=== PATIENT | female | born 1965 | race American Indian/Alaskan Native ===

== ENCOUNTER 2018-04-16 10:31 | Emergency (ER) | payer OTHER ==
[2018-04-16 10:36] VITALS: RESP 18
[2018-04-16] MEDS ORDERED: KETOROLAC 30 MG/ML 1 ML VIAL IVP STA (11:09)
[2018-04-16] MEDS ORDERED: MORPHINE SULFATE 2 MG/ML SYRINGE IVP STA (11:09)
[2018-04-16] MEDS ORDERED: SODIUM CHLORIDE 0.9% 1,000 ML IV STA ×2 (11:09)
[2018-04-16] MEDS ORDERED: ONDANSETRON 4 MG/2 ML VIAL IVP STA (11:09)
--- NOTE | 2018-04-16 11:09 | ED ---
Abdominal Pain HPI - General Chief Complaint: Abdominal Pain Stated Complaint: hernia Time Seen by Provider: 04/16/18 10:38 Source: patient, RN notes reviewed, old records reviewed Mode of arrival: wheelchair Limitations: no limitations - History of Present Illness Initial Comments: This patient's 52-year-old female presents emergency room chief complaint of umbilical hernia pain. Patient reports that she has a history of liver disease , and states that she has had increased pain due to the protrusion of her hernia over the past few weeks. Patient states she noticed that hernia is more severe since August. She try to follow-up with her primary care physician but he has since retired. Patient states that she has been having normal bowel movements. She reports there is pain whenever she coughs nieces or strains have a bowel movement. Patient states that she's had no fevers or chills. Denies any other symptoms. - Related Data Home Medications Medication Instructions Recorded Confirmed Ergocalciferol [Vitamin D2] 50,000 unit PO TH 04/16/18 04/16/18 Folic Acid 1 mg PO DAILY 04/16/18 04/16/18 Furosemide [Lasix] 80 mg PO DAILY 04/16/18 04/16/18 Magnesium Oxide [Joyce] 500 mg PO WEEKLY 04/16/18 04/16/18 Polyethylene Glycol 3350 [Miralax] 17 gm PO DAILY 04/16/18 04/16/18 Potassium Chloride [Klor-Con 20] 20 meq PO DAILY 04/16/18 04/16/18 Propranolol HCl 10 mg PO TID 04/16/18 04/16/18 Spironolactone [Aldactone] 200 mg PO DAILY 04/16/18 04/16/18 Previous Rx's Medication Instructions Recorded Bisacodyl [Dulcolax] 10 mg PO DAILY #12 tablet. 04/16/18 Allergies Allergy/AdvReac Type Severity Reaction Status Date / Time No Known Allergies Allergy Verified 04/16/18 10:55 Review of Systems ROS Statement: Those systems with pertinent positive or pertinent negative responses have been documented in the HPI. ROS Other: All systems not noted in ROS Statement are negative. Past Medical History Past Medical History: Heart Failure Additional Past Medical History / Comment(s): anemia, constipation, liver disease, alcholism History of Any Multi-Drug Resistant Organisms: None Reported Past Surgical History: No Surgical Hx Reported Past Psychological History: No Psychological Hx Reported Smoking Status: Current every day smoker Past Alcohol Use History: Rare Past Drug Use History: Marijuana General Exam - General Exam Comments Initial Comments: This is a 52-year-old female. Alert and oriented. No significant distress. Limitations: no limitations Head exam: Present: atraumatic, normocephalic, normal inspection Eye exam: Present: normal appearance, PERRL, EOMI. Absent: scleral icterus, conjunctival injection, periorbital swelling ENT exam: Present: normal exam, mucous membranes moist Neck exam: Present: normal inspection. Absent: tenderness, meningismus, lymphadenopathy Respiratory exam: Present: normal lung sounds bilaterally. Absent: respiratory distress, wheezes, rales, rhonchi, stridor Cardiovascular Exam: Present: regular rate, normal rhythm, normal heart sounds. Absent: systolic murmur, diastolic murmur, rubs, gallop, clicks GI/Abdominal exam: Present: soft, tenderness (Patient reports diffuse abdominal tenderness.), normal bowel sounds, hernia (Evidence of umbilical hernia measuring approximately 6-7 cm. She was has no erythema over the umbilicus. Bowel sounds are normal throughout. Hernia is reducible on slow palpation.). Absent: distended, guarding, rebound, rigid Extremities exam: Present: normal inspection, full ROM, normal capillary refill. Absent: tenderness, pedal edema, joint swelling, calf tenderness Back exam: Present: normal inspection Neurological exam: Present: alert, oriented X3, CN II-XII intact Psychiatric exam: Present: normal affect, normal mood Skin exam: Present: warm, dry, intact, normal color. Absent: rash Course Vital Signs 04/16/18 04/16/18 10:33 11:59 Temperature 98.4 F Pulse Rate 112 H 87 Respiratory 18 18 Rate Blood Pressure 167/73 184/85 O2 Sat by Pulse 100 98 Oximetry Medical Decision Making - Medical Decision Making Due to-year-old female just emergency department intubated pain of her umbilical hernia. She's been having this hernia for many months. Pain has been increased over the past 2 weeks. Patient reports that she is concerned have bowel movements or any other coughing or exertional symptoms due to increased pain hernia site. Patient states she's had bowel movement today. Lab work was obtained. Patient does have evidence of Anemia with blood cell count 2.7. Hemoglobin 10.5. Liver function is been stable. Kidney function shows no significant change. PT 12.1. INR 1.3. Patient does have history of cirrhosis. CT abdomen and pelvis was completed. No evidence of any incarcerated bowel or ischemia so she with patient's hernia. Also some evidence of portal hypertension and small amount of ascites within the abdomen. Patient has been informed of her results. I discussed that she needs follow- up with PCP and surgeon for her hernia. Be given a referral for the on-call surgeon on-call PCP. Patient agrees to follow-up, nausea history plan will comply. Return parameters were discussed. - Lab Data Result diagrams: 04/16/18 11:41 04/16/18 11:41 Lab Results 04/16/18 04/16/18 04/16/18 Range/Units 11:41 11:41 11:41 WBC 2.7 L (3.8-10.6) k/uL RBC 4.36 (3.80-5.40) m/uL Hgb 10.5 L (11.4-16.0) gm/dL Hct 35.1 (34.0-46.0) % MCV 80.5 (80.0-100.0) fL MCH 24.1 L (25.0-35.0) pg MCHC 29.9 L (31.0-37.0) g/dL RDW 18.2 H (11.5-15.5) % Plt Count 124 L (150-450) k/uL Neutrophils % 58 % Lymphocytes % 30 % Monocytes % 8 % Eosinophils % 2 % Basophils % 1 % Neutrophils # 1.6 (1.3-7.7) k/uL Lymphocytes # 0.8 L (1.0-4.8) k/uL Monocytes # 0.2 (0-1.0) k/uL Eosinophils # 0.0 (0-0.7) k/uL Basophils # 0.0 (0-0.2) k/uL Hypochromasia Marked Anisocytosis Slight Microcytosis Slight PT 12.1 H (9.0-12.0) sec INR 1.3 H (<1.2) APTT 22.2 (22.0-30.0) sec Sodium 139 (137-145) mmol/L Potassium 3.8 (3.5-5.1) mmol/L Chloride 105 (98-107) mmol/L Carbon Dioxide 24 (22-30) mmol/L Anion Gap 10 mmol/L BUN 6 L (7-17) mg/dL Creatinine 0.39 L (0.52-1.04) mg/dL Est GFR (CKD-EPI)AfAm >90 (>60 ml/min/1.73 sqM) Est GFR (CKD-EPI)NonAf >90 (>60 ml/min/1.73 sqM) Glucose 142 H (74-99) mg/dL Calcium 8.6 (8.4-10.2) mg/dL Total Bilirubin 1.0 (0.2-1.3) mg/dL AST 69 H (14-36) U/L ALT 35 (9-52) U/L Alkaline Phosphatase 96 (38-126) U/L Total Protein 7.6 (6.3-8.2) g/dL Albumin 3.8 (3.5-5.0) g/dL Amylase 80 (30-110) U/L Lipase 182 (23-300) U/L Urine Color Urine Appearance (Clear) Urine pH (5.0-8.0) Ur Specific [place] (1.001-1.035) Urine Protein (Negative) Urine Glucose (UA) (Negative) Urine Ketones (Negative) Urine Blood (Negative) Urine Nitrite (Negative) Urine Bilirubin (Negative) Urine Urobilinogen (<2.0) mg/dL Ur Leukocyte Esterase (Negative) 04/16/18 Range/Units 13:30 WBC (3.8-10.6) k/uL RBC (3.80-5.40) m/uL Hgb (11.4-16.0) gm/dL Hct (34.0-46.0) % MCV (80.0-100.0) fL MCH (25.0-35.0) pg MCHC (31.0-37.0) g/dL RDW (11.5-15.5) % Plt Count (150-450) k/uL Neutrophils % % Lymphocytes % % Monocytes % % Eosinophils % % Basophils % % Neutrophils # (1.3-7.7) k/uL Lymphocytes # (1.0-4.8) k/uL Monocytes # (0-1.0) k/uL Eosinophils # (0-0.7) k/uL Basophils # (0-0.2) k/uL Hypochromasia Anisocytosis Microcytosis PT (9.0-12.0) sec INR (<1.2) APTT (22.0-30.0) sec Sodium (137-145) mmol/L Potassium (3.5-5.1) mmol/L Chloride (98-107) mmol/L Carbon Dioxide (22-30) mmol/L Anion Gap mmol/L BUN (7-17) mg/dL Creatinine (0.52-1.04) mg/dL Est GFR (CKD-EPI)AfAm (>60 ml/min/1.73 sqM) Est GFR (CKD-EPI)NonAf (>60 ml/min/1.73 sqM) Glucose (74-99) mg/dL Calcium (8.4-10.2) mg/dL Total Bilirubin (0.2-1.3) mg/dL AST (14-36) U/L ALT (9-52) U/L Alkaline Phosphatase (38-126) U/L Total Protein (6.3-8.2) g/dL Albumin (3.5-5.0) g/dL Amylase (30-110) U/L Lipase (23-300) U/L Urine Color Yellow Urine Appearance Clear (Clear) Urine pH 7.5 (5.0-8.0) Ur Specific [place] 1.021 (1.001-1.035) Urine Protein Negative (Negative) Urine Glucose (UA) Negative (Negative) Urine Ketones Negative (Negative) Urine Blood Negative (Negative) Urine Nitrite Negative (Negative) Urine Bilirubin Negative (Negative) Urine Urobilinogen 2.0 (<2.0) mg/dL Ur Leukocyte Esterase Negative (Negative) - Radiology Data Radiology results: report reviewed Midcentral ventral hernia near bleeding is contained small sip small bowel movement. No suspicious dilation to suggest obstruction or fat stranding to suggest ischemia or incarceration. There is suspected cirrhosis with underlying portal hypertension. There is mild splenomegaly with small amount of abdominal and pelvic ascites. Clinical correlation is advised. Disposition Clinical Impression: Ventral hernia, Abdominal pain, Anemia Disposition: HOME SELF-CARE Condition: Good Instructions: Abdominal Pain (ED), Ventral Hernia (ED) Additional Instructions: Patient advised to follow-up with primary care physician and on-call surgeon. Return to emergency department if any alarming signs or symptoms occur. Prescriptions: Bisacodyl [Dulcolax] 10 mg PO DAILY #12 tablet.dr Is patient prescribed a controlled substance at d/c from ED?: No Referrals: None,Stated [Primary Care Provider] - 1-2 days Juan A Maxwell MD [STAFF PHYSICIAN] - 1-2 days Mitra Umaña MD [STAFF PHYSICIAN] - 1-2 days Time of Disposition: 14:18
[2018-04-16 12:04] LABS: Anisocytosis Slight; Basophils % (A) 1 %; Eosinophils % (A) 2 %; HCT 35.1 % (34.0-46.0); HGB 10.5 gm/dL (11.4-16.0); Hypochromasia Marked; Lymphocytes # (A) 0.8 k/uL (1.0-4.8); Lymphocytes % (A) 30 %; MCH 24.1 pg (25.0-35.0); MCHC 29.9 g/dL (31.0-37.0); MCV 80.5 fL (80.0-100.0); Microcytosis Slight; Monocytes # (A) 0.2 k/uL (0-1.0); Monocytes % (A) 8 %; Neutrophils # (A) 1.6 k/uL (1.3-7.7); Neutrophils % (A) 58 %; Platelet Count 124 k/uL (150-450); RBC 4.36 m/uL (3.80-5.40); RDW 18.2 % (11.5-15.5); WBC 2.7 k/uL (3.8-10.6)
[2018-04-16 12:06] LABS: ALT 35 U/L (9-52); AST 69 U/L (14-36); Albumin 3.8 g/dL (3.5-5.0); Alkaline Phosphatase 96 U/L (38-126); Amylase 80 U/L (30-110); Anion Gap 10 mmol/L; Blood Urea Nitrogen 6 mg/dL (7-17); Calcium 8.6 mg/dL (8.4-10.2); Carbon Dioxide 24 mmol/L (22-30); Chloride 105 mmol/L (98-107); Glucose 142 mg/dL (74-99); Lipase 182 U/L (23-300); Potassium 3.8 mmol/L (3.5-5.1); Sodium 139 mmol/L (137-145); Total Protein 7.6 g/dL (6.3-8.2)
[2018-04-16 12:17] LABS: INR 1.3 (<1.2); Partial Thromboplastin Time 22.2 sec (22.0-30.0); Prothrombin Time 12.1 sec (9.0-12.0)
[2018-04-16 13:50] LABS: Appearance,Urine Clear (Clear); Bilirubin,Urine Negative (Negative); Blood,Urine Negative (Negative); Color,Urine Yellow; Glucose,Urine (UA) Negative (Negative); Ketones,Urine Negative (Negative); Leukocyte Esterase,Urine Negative (Negative); Nitrite,Urine Negative (Negative); PH, Urine 7.5 (5.0-8.0); Protein,Urine Negative (Negative); Specific Gravity,Urine 1.021 (1.001-1.035)
--- NOTE | 2018-04-16 14:11 | CT ---
EXAMINATION TYPE: CT abdomen pelvis w con DATE OF EXAM: 04/16/2018 HISTORY: Umbilical hernia feels like going to burst per patient. Pain not further specified CT DLP: 692.1mGycm Automated Exposure Control for Dose Reduction was Utilized. CONTRAST: CT scan of the abdomen and pelvis is performed without oral but with IV Contrast, patient injected wi th 100 mL of Isovue 300. COMPARISON: None FINDINGS: LUNG BASES: Dependent atelectasis right lung base is present. There is reticular edema and/or infiltr ates in the left lower lobe axial image 11 with more nodular atelectasis subpleural region in the lef t lung base. Coronary artery calcification is present which is noted marker for coronary artery disea se. LIVER/GB: There is small to moderate perihepatic ascites anterior superior margin extending laterally . Liver has lobulated contour consistent with underlying cirrhosis. Main portal vein is patent and up per limits of normal in size PANCREAS: No significant abnormality is seen. SPLEEN: Mild splenomegaly is seen at 14.0 cm long axis axial image 29. Mild surrounding ascites is pr esent. ADRENALS: No significant abnormality is seen. KIDNEYS: No significant abnormality is seen. BOWEL: Evaluation of bowel is suboptimal secondary to lack of enteric contrast. Stomach is poorly dis tended and thus suboptimally evaluated. There is mild wall thickening in jejunal loops in the left ab domen. There is no suspicious small or large bowel dilatation. Redundant sigmoid colon is seen with o ccasional diverticula. UTERUS/ADNEXA: Anteverted uterus is seen. There is small amount of free fluid in pelvis LYMPH NODES: No greater than 1cm abdominal or pelvic lymph nodes are appreciated. OSSEOUS STRUCTURES: There is mild to moderate chronic height loss at L2 vertebra with prominent anter ior superior spur. OTHER: There is narrow neck ventral wall hernia measuring 2.2 cm axial image 59 near level of umbilic us containing fat, tiny mesenteric vessels, and focal loop of bowel felt to be small bowel loop. No s uspicious dilatation is seen to suggest obstruction. There is mild ill-defined fluid throughout the upper to mid abdominal mesentery. There is moderate to severe calcified plaque throughout the abdominal aorta extending into pelvic bra nch vessels. IMPRESSION: 1. Midline central ventral wall hernia near umbilicus contains small segment of small bowel loop. No suspicious dilatation to suggest obstruction or significant focal fat stranding to suggest ischemia o r incarceration. 2. There is suspected cirrhosis with underlying portal hypertension as detailed above as there is mil d splenomegaly with small amount of abdominal and pelvic ascites. Clinical and lab correlation advise rain
[2018-04-16] MEDS ORDERED: traMADol 50 MG STARTER PACK 3 TAB BTL PO STA (14:47)
[2018-04-16 15:12] VITALS: BP 167/72; PULSE 91; TEMP 98.6
== END 2018-04-16 15:13 | disposition home or self-care (01) ==
LOC: EC 10:31
DX: K43.9 Ventral hernia without obstruction or gangrene (principal); D64.9 Anemia, unspecified; R18.8 Other ascites; I11.0 Hypertensive heart disease with heart failure; I50.9 Heart failure, unspecified; Z87.19 Personal history of other diseases of the digestive system; F17.200 Nicotine dependence, unspecified, uncomplicated; Z79.899 Other long term (current) drug therapy
CPT/HCPCS: 36415; 80053; 82150; 83690; 85025; 85610; 85730; 81003; 74177; 99285; 96374; 96375 ×2; 96361 ×3; J2405; J1885; J2270; Q9967

== ENCOUNTER 2018-12-05 12:20 | Observation (INO) | payer OTHER ==
[2018-12-05] MEDS ORDERED: SODIUM CHLORIDE 0.9% 1,000 ML IV STA (13:13)
[2018-12-05] MEDS ORDERED: HYDROmorphone 1 MG/ML 1 ML SYRINGE IVP STA (13:13)
--- NOTE | 2018-12-05 13:23 | ED ---
General Adult HPI - General Stated complaint: Hernia pain Time Seen by Provider: 12/05/18 12:30 Source: patient, RN notes reviewed Mode of arrival: wheelchair Limitations: no limitations - History of Present Illness Initial comments: Patient is a pleasant 53-year-old female presenting to the emergency department with concerns regarding abdominal discomfort. Patient has had hernia symptoms for over one year now. Patient has seen a surgeon for this. Patient was told to stop drinking and stop smoking and to be reevaluated after this. Patient has stopped drinking. Hernia has progressed. Patient does feel peristalsis. Patient does feel generally weak all over, no isolated area of weakness. Patient does have some paresthesias. No loss of sensation. Patient denies any change in her speech. - Related Data Home Medications Medication Instructions Recorded Confirmed No Known Home Medications 12/05/18 12/05/18 Allergies Allergy/AdvReac Type Severity Reaction Status Date / Time No Known Allergies Allergy Verified 12/05/18 14:06 Review of Systems ROS Statement: Those systems with pertinent positive or pertinent negative responses have been documented in the HPI. ROS Other: All systems not noted in ROS Statement are negative. Constitutional: Denies: fever Eyes: Denies: eye pain ENT: Denies: ear pain Respiratory: Denies: cough Cardiovascular: Denies: chest pain Endocrine: Reports: fatigue Gastrointestinal: Reports: abdominal pain, nausea. Denies: vomiting Genitourinary: Denies: dysuria Musculoskeletal: Denies: back pain Skin: Denies: rash Neurological: Denies: headache, confusion Past Medical History Past Medical History: Heart Failure Additional Past Medical History / Comment(s): anemia, constipation, liver disease, alcholism History of Any Multi-Drug Resistant Organisms: None Reported Past Surgical History: No Surgical Hx Reported Past Psychological History: No Psychological Hx Reported Smoking Status: Current every day smoker Past Alcohol Use History: Rare Past Drug Use History: Marijuana General Exam Limitations: no limitations General appearance: alert, in no apparent distress Head exam: Present: atraumatic Eye exam: Present: normal appearance, PERRL, EOMI. Absent: nystagmus ENT exam: Present: normal oropharynx Neck exam: Present: normal inspection Respiratory exam: Present: normal lung sounds bilaterally Cardiovascular Exam: Present: regular rate, normal rhythm GI/Abdominal exam: Present: soft, normal bowel sounds, hernia (Abdominal hernia that is soft and mild to moderately tender). Absent: rebound, rigid, pulsatile mass Extremities exam: Present: normal inspection. Absent: pedal edema, calf tenderness Neurological exam: Present: alert, oriented X3, CN II-XII intact. Absent: motor sensory deficit Expanded Neurological exam: Present: protecting the airway Patient oriented to: Present: person, place, time Speech: Present: fluid speech Cranial nerves: EOM's Intact: Normal, Facial Sensation: Normal Cerebellar function: Finger to Nose: Normal Sensory exam: Upper Extremity Light Touch: Normal, Lower Extremity Light Touch: Normal Motor strength exam: RUE: 5, LUE: 5, RLE: 5, LLE: 5 Eye Response: (4) open spontaneously Motor Response: (6) obeys commands Verbal Response: (5) oriented Psychiatric exam: Present: normal affect, normal mood Skin exam: Present: normal color Course Vital Signs 12/05/18 12/05/18 12:27 13:46 Temperature 98.6 F 98.0 F Pulse Rate 86 81 Respiratory 16 14 Rate Blood Pressure 130/85 129/63 O2 Sat by Pulse 100 100 Oximetry - Reevaluation(s) Reevaluation #1: 12/05/18 15:19 Patient was earlier reevaluated and ventral hernia was easily reduced without any complication. Patient is again reevaluated at this point and updated. Case was discussed in detail with Dr. Moya, who will admit covering for hospital call. Dr. Maxwell will be placed on consult was previously seen this patient. EKG Findings - EKG Comments: EKG Findings:: No sinus rhythm 85. AR 144. QRS 92. QT 392. QTC 466. Left axis. Normal QRS. No acute ST change. Medical Decision Making - Lab Data Result diagrams: 12/05/18 13:45 12/05/18 13:45 Lab Results 12/05/18 12/05/18 12/05/18 Range/Units 13:45 13:45 13:45 WBC 4.4 (3.8-10.6) k/uL RBC 4.27 (3.80-5.40) m/uL Hgb 7.4 L (11.4-16.0) gm/dL Hct 27.1 L (34.0-46.0) % MCV 63.5 L (80.0-100.0) fL MCH 17.3 L (25.0-35.0) pg MCHC 27.2 L (31.0-37.0) g/dL RDW 17.1 H (11.5-15.5) % Plt Count 147 L (150-450) k/uL Neutrophils % 70 % Lymphocytes % 21 % Monocytes % 6 % Eosinophils % 2 % Basophils % 1 % Neutrophils # 3.1 (1.3-7.7) k/uL Lymphocytes # 0.9 L (1.0-4.8) k/uL Monocytes # 0.3 (0-1.0) k/uL Eosinophils # 0.1 (0-0.7) k/uL Basophils # 0.0 (0-0.2) k/uL Hypochromasia Marked Poikilocytosis Slight Anisocytosis Slight Microcytosis Marked PT 11.4 (9.0-12.0) sec INR 1.1 (<1.2) APTT 22.5 (22.0-30.0) sec Sodium 134 L (137-145) mmol/L Potassium 4.1 (3.5-5.1) mmol/L Chloride 99 (98-107) mmol/L Carbon Dioxide 25 (22-30) mmol/L Anion Gap 10 mmol/L BUN 13 (7-17) mg/dL Creatinine 0.39 L (0.52-1.04) mg/dL Est GFR (CKD-EPI)AfAm >90 (>60 ml/min/1.73 sqM) Est GFR (CKD-EPI)NonAf >90 (>60 ml/min/1.73 sqM) Glucose 397 H (74-99) mg/dL Calcium 9.0 (8.4-10.2) mg/dL Total Bilirubin 1.1 (0.2-1.3) mg/dL AST 17 (14-36) U/L ALT 25 (9-52) U/L Alkaline Phosphatase 88 (38-126) U/L Total Protein 7.4 (6.3-8.2) g/dL Albumin 4.0 (3.5-5.0) g/dL Amylase 59 (30-110) U/L Lipase 260 (23-300) U/L Urine Color Urine Appearance (Clear) Urine pH (5.0-8.0) Ur Specific [place] (1.001-1.035) Urine Protein (Negative) Urine Glucose (UA) (Negative) Urine Ketones (Negative) Urine Blood (Negative) Urine Nitrite (Negative) Urine Bilirubin (Negative) Urine Urobilinogen (<2.0) mg/dL Ur Leukocyte Esterase (Negative) 12/05/18 Range/Units 13:45 WBC (3.8-10.6) k/uL RBC (3.80-5.40) m/uL Hgb (11.4-16.0) gm/dL Hct (34.0-46.0) % MCV (80.0-100.0) fL MCH (25.0-35.0) pg MCHC (31.0-37.0) g/dL RDW (11.5-15.5) % Plt Count (150-450) k/uL Neutrophils % % Lymphocytes % % Monocytes % % Eosinophils % % Basophils % % Neutrophils # (1.3-7.7) k/uL Lymphocytes # (1.0-4.8) k/uL Monocytes # (0-1.0) k/uL Eosinophils # (0-0.7) k/uL Basophils # (0-0.2) k/uL Hypochromasia Poikilocytosis Anisocytosis Microcytosis PT (9.0-12.0) sec INR (<1.2) APTT (22.0-30.0) sec Sodium (137-145) mmol/L Potassium (3.5-5.1) mmol/L Chloride (98-107) mmol/L Carbon Dioxide (22-30) mmol/L Anion Gap mmol/L BUN (7-17) mg/dL Creatinine (0.52-1.04) mg/dL Est GFR (CKD-EPI)AfAm (>60 ml/min/1.73 sqM) Est GFR (CKD-EPI)NonAf (>60 ml/min/1.73 sqM) Glucose (74-99) mg/dL Calcium (8.4-10.2) mg/dL Total Bilirubin (0.2-1.3) mg/dL AST (14-36) U/L ALT (9-52) U/L Alkaline Phosphatase (38-126) U/L Total Protein (6.3-8.2) g/dL Albumin (3.5-5.0) g/dL Amylase (30-110) U/L Lipase (23-300) U/L Urine Color Yellow Urine Appearance Clear (Clear) Urine pH 6.5 (5.0-8.0) Ur Specific [place] 1.035 (1.001-1.035) Urine Protein Negative (Negative) Urine Glucose (UA) 4+ H (Negative) Urine Ketones Negative (Negative) Urine Blood Negative (Negative) Urine Nitrite Negative (Negative) Urine Bilirubin Negative (Negative) Urine Urobilinogen 3.0 (<2.0) mg/dL Ur Leukocyte Esterase Negative (Negative) - Radiology Data Radiology results: image reviewed (Abdominal x-ray shows increased stool burden.) Disposition Clinical Impression: Ventral hernia, Hyperglycemia, Anemia Disposition: ADMITTED IP TO THIS HOSP Is patient prescribed a controlled substance at d/c from ED?: No Referrals: Rolo Poole MD [Primary Care Provider] - 1-2 days Decision Time: 15:21
--- NOTE | 2018-12-05 14:10 | XR ---
Abdomen HISTORY: Pain Frontal view of the abdomen on 2 images Lung bases are clear. There is no evident pneumoperitoneum or bowel obstruction. Large amount of bette ined fecal debris present throughout the distribution of the colon. The calcifications within the pel vis may be vascular. IMPRESSION: Correlate for fecal stasis.
[2018-12-05 14:28] LABS: Appearance,Urine Clear (Clear); Bilirubin,Urine Negative (Negative); Blood,Urine Negative (Negative); Color,Urine Yellow; Glucose,Urine (UA) 4+ (Negative); Ketones,Urine Negative (Negative); Leukocyte Esterase,Urine Negative (Negative); Nitrite,Urine Negative (Negative); PH, Urine 6.5 (5.0-8.0); Protein,Urine Negative (Negative); Specific Gravity,Urine 1.035 (1.001-1.035)
[2018-12-05 14:29] LABS: Anisocytosis Slight; Basophils % (A) 1 %; Eosinophils # (A) 0.1 k/uL (0-0.7); Eosinophils % (A) 2 %; HCT 27.1 % (34.0-46.0); HGB 7.4 gm/dL (11.4-16.0); Hypochromasia Marked; Lymphocytes # (A) 0.9 k/uL (1.0-4.8); Lymphocytes % (A) 21 %; MCH 17.3 pg (25.0-35.0); MCHC 27.2 g/dL (31.0-37.0); MCV 63.5 fL (80.0-100.0); Mean Platelet Volume 7.5; Microcytosis Marked; Monocytes # (A) 0.3 k/uL (0-1.0); Monocytes % (A) 6 %; Neutrophils # (A) 3.1 k/uL (1.3-7.7); Neutrophils % (A) 70 %; Platelet Count 147 k/uL (150-450); Poikilocytosis Slight; RBC 4.27 m/uL (3.80-5.40); RDW 17.1 % (11.5-15.5); WBC 4.4 k/uL (3.8-10.6)
[2018-12-05 14:34] LABS: ALT 25 U/L (9-52); AST 17 U/L (14-36); Alkaline Phosphatase 88 U/L (38-126); Amylase 59 U/L (30-110); Anion Gap 10 mmol/L; Blood Urea Nitrogen 13 mg/dL (7-17); Carbon Dioxide 25 mmol/L (22-30); Chloride 99 mmol/L (98-107); Glucose 397 mg/dL (74-99); Lipase 260 U/L (23-300); Potassium 4.1 mmol/L (3.5-5.1); Sodium 134 mmol/L (137-145); Total Bilirubin 1.1 mg/dL (0.2-1.3); Total Protein 7.4 g/dL (6.3-8.2)
[2018-12-05 14:38] LABS: INR 1.1 (<1.2); Partial Thromboplastin Time 22.5 sec (22.0-30.0); Prothrombin Time 11.4 sec (9.0-12.0)
[2018-12-05] MEDS ORDERED: NALOXONE 0.4 MG/ML 1 ML VIAL IV PRN (15:22)
[2018-12-05] MEDS ORDERED: INSULIN REGULAR 100 UNIT/ML VIAL IV ONE (15:53)
[2018-12-05 16:16] LABS: Glucose,Whole Blood 346 mg/dL (75-99)
[2018-12-05 16:45] LABS: Glucose,Whole Blood 248 mg/dL (75-99)
[2018-12-05] MEDS: INSULIN ASPART (NovoLOG) 100 UNIT/ML VIAL SQ SCH ×2 (17:33→21:48)
[2018-12-05] MEDS: SODIUM CHLORIDE 0.9% 1,000 ML IV SCH ×2 (20:09→22:08)
[2018-12-05] MEDS: HYDROcodone/APAP 5-325MG 1 EACH TAB PO PRN (20:09)
[2018-12-05 21:25] LABS: Glucose,Whole Blood 368 mg/dL (75-99)
[2018-12-06] MEDS: HYDROcodone/APAP 5-325MG 1 EACH TAB PO PRN ×3 (05:52→17:41)
[2018-12-06 06:54] LABS: Glucose,Whole Blood 332 mg/dL (75-99)
[2018-12-06] MEDS: INSULIN ASPART (NovoLOG) 100 UNIT/ML VIAL SQ SCH ×4 (08:50→21:15)
[2018-12-06] MEDS: PANTOPRAZOLE 40 MG/10 ML VIAL IV SCH (08:50)
[2018-12-06] MEDS ORDERED: BISACODYL 10 MG SUPP RECTAL STA (09:04)
[2018-12-06 09:32] LABS: Anisocytosis Slight; Basophils % (A) 1 %; Eosinophils # (A) 0.1 k/uL (0-0.7); Eosinophils % (A) 3 %; HCT 25.6 % (34.0-46.0); Hypochromasia Marked; Lymphocytes # (A) 0.8 k/uL (1.0-4.8); Lymphocytes % (A) 25 %; MCH 15.9 pg (25.0-35.0); MCHC 24.7 g/dL (31.0-37.0); MCV 64.2 fL (80.0-100.0); Mean Platelet Volume 6.8; Microcytosis Marked; Monocytes # (A) 0.3 k/uL (0-1.0); Monocytes % (A) 8 %; Neutrophils # (A) 1.9 k/uL (1.3-7.7); Neutrophils % (A) 60 %; Platelet Count 124 k/uL (150-450); RBC 3.99 m/uL (3.80-5.40); RDW 17.4 % (11.5-15.5); WBC 3.1 k/uL (3.8-10.6)
[2018-12-06 09:40] LABS: HGB 6.3 gm/dL (11.4-16.0)
[2018-12-06 09:57] LABS: ALT 22 U/L (9-52); AST 17 U/L (14-36); Albumin 3.1 g/dL (3.5-5.0); Alkaline Phosphatase 79 U/L (38-126); Blood Urea Nitrogen 15 mg/dL (7-17); Calcium 8.5 mg/dL (8.4-10.2); Chloride 104 mmol/L (98-107); Glucose 412 mg/dL (74-99); Potassium 4.1 mmol/L (3.5-5.1); Sodium 136 mmol/L (137-145); Total Bilirubin 0.8 mg/dL (0.2-1.3); Total Protein 6.1 g/dL (6.3-8.2)
[2018-12-06 11:02] LABS: Anion Gap 9 mmol/L; Carbon Dioxide 23 mmol/L (22-30)
[2018-12-06 11:30] LABS: Glucose,Whole Blood 361 mg/dL (75-99)
[2018-12-06 12:42] LABS: Poikilocytosis (M) Present
[2018-12-06 13:09] LABS: Reticulocyte % 2.3 % (0.5-2.0)
[2018-12-06 13:15] LABS: Cholesterol 134 mg/dL (<200); HDL Cholesterol 20 mg/dL (40-60); LDL Cholesterol,Calculated 87 mg/dL (0-99); Triglycerides 135 mg/dL (<150)
[2018-12-06] MEDS: IOPAMIDOL-300 CONTRAST 30 ML VIAL (ORAL USE) PO PRN ×2 (13:26→14:40)
--- NOTE | 2018-12-06 14:55 | P.GSCN ---
History of Present Illness Consult date: 12/06/18 Reason for Consult: hernia Requesting physician: Sharan Drew History of present illness: CHIEF COMPLAINT: abdominal pain, hernia HISTORY OF PRESENT ILLNESS: 53-year-old female who presented to the emergency room with a chief complaint of abdominal pain and generalized weakness. Patient has a known ventral hernia and also a history of alcohol abuse. She has been evaluated by Dr. Maxwell in the past who told patient she needed to stop drinking before he would proceed with surgical intervention. Patient reports she has been sober since July 2018. she states she has not followed up with Dr. Maxwell outpatient as she missed her follow-up appointment. She reports constipation and states she has not had a bowel movement since Monday. She denies nausea or vomiting. Stool for occult blood was negative. Hemoglobin 7.4 and admission. 6.3 today. Hemoglobin was 10.5 back in March 2018. PAST MEDICAL HISTORY: See list. PAST SURGICAL HISTORY: See list. SOCIAL HISTORY: No illicit drug use. REVIEW OF SYSTEMS: CONSTITUTIONAL: Denies fever or chills. HEENT: Denies blurred vision, vision changes, or eye pain. Denies hemoptysis CARDIOVASCULAR: Denies chest pain or pressure. RESPIRATORY: No shortness of breath. GASTROINTESTINAL: Refer to HPI for pertinent findings HEMATOLOGIC: Denies bleeding disorders. GENITOURINARY: Denies any blood in urine. SKIN: Denies pruitis. Denies rash. PHYSICAL EXAM: VITAL SIGNS: Reviewed. GENERAL: Well-developed in no acute distress. HEENT: No sclera icterus. Extraocular movements grossly intact. Moist buccal mucosa. Head is atraumatic, normocephalic. ABDOMEN: Soft. Nondistended. Large reducible abdominal hernia. NEUROLOGIC: Alert and oriented. Cranial nerves II through XII grossly intact. IMAGING: Abdominal x-ray: No evidence of pneumoperitoneum or bowel obstruction. Large amount of retained fecal debris present throughout the colon. Correlate for fecal stasis. ASSESSMENT: 1. Abdominal pain 2. Large ventral hernia 3. Constipation, patient reports no bowel movement since Monday, x-ray shows large amount of fecal debris 4. History of alcohol abuse PLAN: CT abdomen pelvis with oral contrast only. Dulcolax suppository 1. Dr. Montoya on consult regarding anemia. Continue current diet. NPO after midnight. Inpatient versus outpatient repair of hernia. Will re-evaluate patient tomorrow. Nurse practitioner note has been reviewed by physician. Signing provider agrees with the documented findings, assessment, and plan of care. Past Medical History Past Medical History: Heart Failure, COPD, CVA/TIA, Memory Impairment Additional Past Medical History / Comment(s): anemia, constipation, liver di sease, alcholism, CVA 06/2018, borderline diabetes History of Any Multi-Drug Resistant Organisms: None Reported Past Surgical History: No Surgical Hx Reported Past Anesthesia/Blood Transfusion Reactions: No Reported Reaction Past Psychological History: No Psychological Hx Reported Smoking Status: Current every day smoker Past Alcohol Use History: Rare Past Drug Use History: Marijuana - Past Family History Sister(s) Family Medical History: Diabetes Mellitus Additional Family Medical History / Comment(s): liver disease in 1 sister, kidney disease in 1 sister, lymphoma Medications and Allergies Home Medications Medication Instructions Recorded Confirmed Type No Known Home Medications 12/05/18 12/05/18 History Allergies Allergy/AdvReac Type Severity Reaction Status Date / Time No Known Allergies Allergy Verified 12/05/18 14:06 Surgical - Exam Vital Signs Temp Pulse Resp BP Pulse Ox 98.6 F 86 16 130/85 100 12/05/18 12:27 12/05/18 12:27 12/05/18 12:27 12/05/18 12:27 12/05/18 12:27 Results - Labs 12/06/18 08:52 12/06/18 08:52 Abnormal Lab Results - Last 24 Hours (Table) 12/05/18 12/05/18 12/05/18 Range/Units 15:49 16:43 21:24 WBC (3.8-10.6) k/uL Hgb (11.4-16.0) gm/dL Hct (34.0-46.0) % MCV (80.0-100.0) fL MCH (25.0-35.0) pg MCHC (31.0-37.0) g/dL RDW (11.5-15.5) % Plt Count (150-450) k/uL Lymphocytes # (1.0-4.8) k/uL Retic Count (0.5-2.0) % Sodium (137-145) mmol/L Creatinine (0.52-1.04) mg/dL Glucose (74-99) mg/dL POC Glucose (mg/dL) 346 H 248 H 368 H (75-99) mg/dL Total Protein (6.3-8.2) g/dL Albumin (3.5-5.0) g/dL HDL Cholesterol (40-60) mg/dL Crossmatch 12/06/18 12/06/18 12/06/18 Range/Units 06:53 08:52 08:52 WBC 3.1 L (3.8-10.6) k/uL Hgb 6.3 L* (11.4-16.0) gm/dL Hct 25.6 L (34.0-46.0) % MCV 64.2 L (80.0-100.0) fL MCH 15.9 L (25.0-35.0) pg MCHC 24.7 L (31.0-37.0) g/dL RDW 17.4 H (11.5-15.5) % Plt Count 124 L (150-450) k/uL Lymphocytes # 0.8 L (1.0-4.8) k/uL Retic Count (0.5-2.0) % Sodium 136 L (137-145) mmol/L Creatinine 0.37 L (0.52-1.04) mg/dL Glucose 412 H (74-99) mg/dL POC Glucose (mg/dL) 332 H (75-99) mg/dL Total Protein 6.1 L (6.3-8.2) g/dL Albumin 3.1 L (3.5-5.0) g/dL HDL Cholesterol (40-60) mg/dL Crossmatch 12/06/18 12/06/18 12/06/18 Range/Units 08:54 10:54 10:54 WBC (3.8-10.6) k/uL Hgb (11.4-16.0) gm/dL Hct (34.0-46.0) % MCV (80.0-100.0) fL MCH (25.0-35.0) pg MCHC (31.0-37.0) g/dL RDW (11.5-15.5) % Plt Count (150-450) k/uL Lymphocytes # (1.0-4.8) k/uL Retic Count 2.3 H (0.5-2.0) % Sodium (137-145) mmol/L Creatinine (0.52-1.04) mg/dL Glucose (74-99) mg/dL POC Glucose (mg/dL) (75-99) mg/dL Total Protein (6.3-8.2) g/dL Albumin (3.5-5.0) g/dL HDL Cholesterol 20 L (40-60) mg/dL Crossmatch See Detail 12/06/18 Range/Units 11:28 WBC (3.8-10.6) k/uL Hgb (11.4-16.0) gm/dL Hct (34.0-46.0) % MCV (80.0-100.0) fL MCH (25.0-35.0) pg MCHC (31.0-37.0) g/dL RDW (11.5-15.5) % Plt Count (150-450) k/uL Lymphocytes # (1.0-4.8) k/uL Retic Count (0.5-2.0) % Sodium (137-145) mmol/L Creatinine (0.52-1.04) mg/dL Glucose (74-99) mg/dL POC Glucose (mg/dL) 361 H (75-99) mg/dL Total Protein (6.3-8.2) g/dL Albumin (3.5-5.0) g/dL HDL Cholesterol (40-60) mg/dL Crossmatch Diabetes panel 12/06/18 12/06/18 Range/Units 08:52 08:54 Sodium 136 L (137-145) mmol/L Potassium 4.1 (3.5-5.1) mmol/L Chloride 104 (98-107) mmol/L Carbon Dioxide 23 (22-30) mmol/L BUN 15 (7-17) mg/dL Creatinine 0.37 L (0.52-1.04) mg/dL Glucose 412 H (74-99) mg/dL Calcium 8.5 (8.4-10.2) mg/dL AST 17 (14-36) U/L ALT 22 (9-52) U/L Alkaline Phosphatase 79 (38-126) U/L Total Protein 6.1 L (6.3-8.2) g/dL Albumin 3.1 L (3.5-5.0) g/dL Triglycerides 135 (<150) mg/dL HDL Cholesterol 20 L (40-60) mg/dL Calcium panel 12/06/18 Range/Units 08:52 Calcium 8.5 (8.4-10.2) mg/dL Albumin 3.1 L (3.5-5.0) g/dL Pituitary panel 12/06/18 Range/Units 08:52 Sodium 136 L (137-145) mmol/L Potassium 4.1 (3.5-5.1) mmol/L Chloride 104 (98-107) mmol/L Carbon Dioxide 23 (22-30) mmol/L BUN 15 (7-17) mg/dL Creatinine 0.37 L (0.52-1.04) mg/dL Glucose 412 H (74-99) mg/dL Calcium 8.5 (8.4-10.2) mg/dL Adrenal panel 12/06/18 Range/Units 08:52 Sodium 136 L (137-145) mmol/L Potassium 4.1 (3.5-5.1) mmol/L Chloride 104 (98-107) mmol/L Carbon Dioxide 23 (22-30) mmol/L BUN 15 (7-17) mg/dL Creatinine 0.37 L (0.52-1.04) mg/dL Glucose 412 H (74-99) mg/dL Calcium 8.5 (8.4-10.2) mg/dL Total Bilirubin 0.8 (0.2-1.3) mg/dL AST 17 (14-36) U/L ALT 22 (9-52) U/L Alkaline Phosphatase 79 (38-126) U/L Total Protein 6.1 L (6.3-8.2) g/dL Albumin 3.1 L (3.5-5.0) g/dL
--- NOTE | 2018-12-06 15:54 | CT ---
EXAMINATION TYPE: CT abdomen pelvis wo con DATE OF EXAM: 12/06/2018 COMPARISON: 04/16/2018 INDICATION: Generalized pain with hernia DLP: 499 mGycm, Automated exposure control for dose reduction was used. CONTRAST: 0 mL of Isovue 300. Study performed with Oral Contrast TECHNIQUE: Axial images were obtained from above the diaphragm to the pubic rami in the axial plane a t 5 mm thick sections. Reconstructed images are reviewed on the computer in the coronal plane. FINDINGS: Limited CT sections are obtained the lung bases. Some minimal pneumonitis change adjacent to the ple ural margin posterior lateral left lung base was present previously. Milder pneumonitis changes are w ithin the posterior left lung base were present previously. CT ABDOMEN: There is an anterior abdominal wall hernia containing multiple loops of bowel within the opening of 4.3 cm. No definite obstruction is identified. Contrast however is not present within thes e loops of bowel. Oral contrast extends to the proximal jejunum. There are some loops of jejunum whic h are prominent in the left upper quadrant. Some wall thickening may be at the left upper quadrant je junum. Considered jejunitis within the differential. Liver: Normal liver. A small amount of ascites is adjacent. Spleen: Normal Pancreas: Normal Adrenal glands: The adrenal glands are normal. Gallbladder: Normal in appearance. A very tiny gallstone near the neck of the gallbladder cannot be excluded. Kidneys: No masses are evident. No hydronephrosis is present. No cysts are present. Delayed images were obtained through the kidneys, which remain unremarkable. Aorta: Vascular calcification is within the aorta. Inferior vena cava: Normal. CT PELVIS: Ascites is within the pelvis. Loops of bowel within the abdomen and pelvis are normal. There are loops of bowel which are incom pletely distended or lack oral contrast limiting their evaluation. Appendix: Normal as visualized. Urinary bladder: Normal. Genitourinary structures: Uterus is normal. Adnexal regions appear within normal limits. Small amount fluid is within the adnexal regions as well. Osseous structures: No suspicious lytic or sclerotic lesions. IMPRESSIONS: 1. Mild ascites throughout the abdomen. 2. Anterior abdominal wall hernia containing nondilated loops of small bowel. No contrast enters into this region with some slight prominence of proximal jejunum. Mild partial small bowel obstruction ca nnot be excluded. 3. Tiny gallstone at the neck of the gallbladder cannot be excluded on the basis of this examination. This could be further evaluated with ultrasound.
[2018-12-06] MEDS: SODIUM CHLORIDE 0.9% 1,000 ML IV SCH (16:46)
[2018-12-06 16:52] LABS: Glucose,Whole Blood 329 mg/dL (75-99)
[2018-12-06 17:50] LABS: Iron Saturation 2.45 (12.00-45.00)
[2018-12-06 20:19] LABS: Glucose,Whole Blood 227 mg/dL (75-99)
[2018-12-06] MEDS ORDERED: HYDROmorphone 1 MG/ML 1 ML SYRINGE IVP STA (20:52)
[2018-12-06 21:15] LABS: Hemoglobin A1C 12.5 % (4.0-6.0)
[2018-12-06 23:00] LABS: Anisocytosis Slight; Basophils % (A) 1 %; Eosinophils # (A) 0.2 k/uL (0-0.7); Eosinophils % (A) 4 %; HCT 27.7 % (34.0-46.0); HGB 7.6 gm/dL (11.4-16.0); Hypochromasia Marked; Lymphocytes # (A) 1.1 k/uL (1.0-4.8); Lymphocytes % (A) 25 %; MCH 17.7 pg (25.0-35.0); MCHC 27.5 g/dL (31.0-37.0); MCV 64.4 fL (80.0-100.0); Mean Platelet Volume 8.5; Microcytosis Marked; Monocytes # (A) 0.4 k/uL (0-1.0); Monocytes % (A) 9 %; Neutrophils # (A) 2.4 k/uL (1.3-7.7); Neutrophils % (A) 59 %; Platelet Count 107 k/uL (150-450); Poikilocytosis Moderate; RBC 4.31 m/uL (3.80-5.40); WBC 4.1 k/uL (3.8-10.6)
[2018-12-07] MEDS: HYDROcodone/APAP 5-325MG 1 EACH TAB PO PRN ×4 (00:29→18:40)
[2018-12-07 06:38] LABS: Glucose,Whole Blood 324 mg/dL (75-99)
[2018-12-07] MEDS: INSULIN ASPART (NovoLOG) 100 UNIT/ML VIAL SQ SCH ×5 (06:50→20:32)
[2018-12-07] MEDS: SODIUM CHLORIDE 0.9% 1,000 ML IV SCH ×2 (06:50→22:28)
[2018-12-07] MEDS: PANTOPRAZOLE 40 MG/10 ML VIAL IV SCH (10:21)
[2018-12-07] MEDS ORDERED: BISACODYL 10 MG SUPP RECTAL STA (10:47)
[2018-12-07 11:27] LABS: Glucose,Whole Blood 294 mg/dL (75-99)
--- NOTE | 2018-12-07 11:33 | P.CONS ---
History of Present Illness - Reason for Consult Consult date: 12/07/18 anemia Requesting physician: Junior Moya - Chief Complaint Abdominal pain - History of Present Illness 53-year-old female with a history of alcohol abuse last several years lately over the last few years and quit in July with a known umbilical ventral hernia presents with abdominal discomfort secondary to her hernia without fever chills hematemesis hematochezia melena. Consult requested for anemia. Admission hemoglobin 7.4. MCV 63. Platelet 147. Retic count 2.3. Hemoglobin decrease to 6.3 received 1 unit of blood current hemoglobin 7.6. Previous h emoglobin 10.01 April 2018. Platelet 107-147. INR 1.1. FOBT negative. Iron indices low consistent with iron deficiency iron 11. Iron saturation 2%. Ferritin 4.2. TIBC 449. BUN 13. Creatinine 0.3. Reports chronic epistaxis sometimes twice a week for several years duration sometimes describes mild sometimes heavy. No vaginal bleeding. No hematuria. No weight loss. EGD colonoscopy performed last fall by Dr. Cahvez Marmolejo patient reports EGD was normal no evidence of varices colonoscopy identified colonic diverticulosis. General surgery has been consulted for possible hernia repair tomorrow. CT abdomen and pelvis midline central ventral wall hernia like us containing small segment of small bowel no suspicious dilation for obstruction ischemia or incarceration. Infected cirrhosis and underlying portal hypertension and mild splenomegaly mild abdominal pelvic ascites. Review of Systems Constitutional: Denies fever, chills, sweats, weight gain, or loss. HEENT: Negative for migraines, blurred vision or loss, earaches, drainage, tinnitus, oral mucosal lesions, dysphagia, or odynophagia. CARDIAC: Negative for chest pain, arrhythmias, or palpitation. RESPIRATORY: Negative for shortness of breath, hemoptysis, cough, or sputum production. GI: See HPI for pertinent findings. : Negative for hematuria, urgency, frequency, polyuria, or dysuria. GYNc: Negative vaginal discharge. MUSCULOSKELETAL: Negative for muscle aches, swelling, arthritis, and arthralgias. NEUROLOGIC: Negative for stroke or TIA. ENDOCRINE: Negative for thyroid problems. SKIN: Negative for rash or itching. PSYCHIATRIC: Negative history for depression and anxiety Past Medical History Past Medical History: Heart Failure, COPD, CVA/TIA, Memory Impairment Additional Past Medical History / Comment(s): anemia, constipation, liver disease, alcholism, CVA 06/2018, borderline diabetes History of Any Multi-Drug Resistant Organisms: None Reported Past Surgical History: No Surgical Hx Reported Past Anesthesia/Blood Transfusion Reactions: No Reported Reaction Past Psychological History: No Psychological Hx Reported Smoking Status: Current every day smoker Past Alcohol Use History: Rare Past Drug Use History: Marijuana - Past Family History Sister(s) Family Medical History: Diabetes Mellitus Additional Family Medical History / Comment(s): liver disease in 1 sister, kidney disease in 1 sister, lymphoma Medications and Allergies Home Medications Medication Instructions Recorded Confirmed Type No Known Home Medications 12/05/18 12/05/18 History Allergies Allergy/AdvReac Type Severity Reaction Status Date / Time No Known Allergies Allergy Verified 12/05/18 14:06 Physical Exam Vitals: Vital Signs Temp Pulse Pulse Resp BP BP Pulse Ox 12/07/18 06:57 98.5 F 80 113/64 98 12/07/18 01:29 98.1 F 76 19 170/71 97 12/07/18 00:39 17 12/06/18 20:00 18 12/06/18 19:36 97.3 F L 79 18 111/71 99 12/06/18 19:00 98.0 F 79 18 107/65 100 12/06/18 16:35 98.7 F 78 16 128/77 98 12/06/18 16:05 97.8 F 79 16 123/72 99 12/06/18 15:55 98.1 F 77 16 99/63 100 12/06/18 15:14 81 16 12/06/18 14:23 98.6 F 81 16 109/63 100 Intake and Output 12/06/18 12/07/18 12/07/18 22:59 06:59 14:59 Intake Total 850 Balance 850 Intake: Oral 540 Blood Product 310 Rc As-1 Unit 310 [id number] Other: Voiding Method Bedside Commode # Voids 2 2 # Bowel Movements 1 Weight 63.5 kg General appearance: The patient is alert, oriented, in no acute distress. HET: Head is normocephalic and atraumatic. Pupils are equal and reactive. Oropharynx is clear without lesions. Neck: Supple without lymphadenopathy. Trachea midline. Heart: S1 S2. Regular rate and rhythm. Lungs: No crackles or wheezes are heard. Abdomen: Soft, nontender, nondistended with bowel sounds. Reducible umbilical hernia. No peritoneal signs. No palpable organomegaly or masses. Extremities: Normal skin color and turgor. No cyanosis, rash, ulceration, clubbing, or edema. Radial and pedal pulses are 2/4 bilaterally. Neurological: No focal deficits. Strength and sensation are grossly intact. Results CBC & Chem 7: 12/06/18 22:47 12/06/18 08:52 Labs: Abnormal Lab Results - Last 24 Hours (Table) 12/06/18 12/06/18 12/06/18 Range/Units 08:52 08:54 08:54 WBC 3.1 L (3.8-10.6) k/uL Hgb 6.3 L* (11.4-16.0) gm/dL Hct 25.6 L (34.0-46.0) % MCV 64.2 L (80.0-100.0) fL MCH 15.9 L (25.0-35.0) pg MCHC 24.7 L (31.0-37.0) g/dL RDW 17.4 H (11.5-15.5) % Plt Count 124 L (150-450) k/uL Lymphocytes # 0.8 L (1.0-4.8) k/uL Retic Count (0.5-2.0) % Hemoglobin A1 (96.5-97.8) % Hemoglobin A2 (2.2-3.2) % POC Glucose (mg/dL) (75-99) mg/dL Hemoglobin A1c 12.5 H (4.0-6.0) % Iron (50-170) ug/dL Iron Saturation (12.00-45.00) Ferritin (10.0-291.0) ng/mL HDL Cholesterol 20 L (40-60) mg/dL Crossmatch 12/06/18 12/06/18 12/06/18 Range/Units 10:54 10:54 10:54 WBC (3.8-10.6) k/uL Hgb (11.4-16.0) gm/dL Hct (34.0-46.0) % MCV (80.0-100.0) fL MCH (25.0-35.0) pg MCHC (31.0-37.0) g/dL RDW (11.5-15.5) % Plt Count (150-450) k/uL Lymphocytes # (1.0-4.8) k/uL Retic Count 2.3 H (0.5-2.0) % Hemoglobin A1 (96.5-97.8) % Hemoglobin A2 (2.2-3.2) % POC Glucose (mg/dL) (75-99) mg/dL Hemoglobin A1c (4.0-6.0) % Iron 11 L (50-170) ug/dL Iron Saturation 2.45 L (12.00-45.00) Ferritin 4.2 L (10.0-291.0) ng/mL HDL Cholesterol (40-60) mg/dL Crossmatch See Detail 12/06/18 12/06/18 12/06/18 Range/Units 10:54 11:28 16:51 WBC (3.8-10.6) k/uL Hgb (11.4-16.0) gm/dL Hct (34.0-46.0) % MCV (80.0-100.0) fL MCH (25.0-35.0) pg MCHC (31.0-37.0) g/dL RDW (11.5-15.5) % Plt Count (150-450) k/uL Lymphocytes # (1.0-4.8) k/uL Retic Count (0.5-2.0) % Hemoglobin A1 98.3 H (96.5-97.8) % Hemoglobin A2 1.7 L (2.2-3.2) % POC Glucose (mg/dL) 361 H 329 H (75-99) mg/dL Hemoglobin A1c (4.0-6.0) % Iron (50-170) ug/dL Iron Saturation (12.00-45.00) Ferritin (10.0-291.0) ng/mL HDL Cholesterol (40-60) mg/dL Crossmatch 12/06/18 12/06/18 12/07/18 Range/Units 20:17 22:47 06:36 WBC (3.8-10.6) k/uL Hgb 7.6 L (11.4-16.0) gm/dL Hct 27.7 L (34.0-46.0) % MCV 64.4 L (80.0-100.0) fL MCH 17.7 L (25.0-35.0) pg MCHC 27.5 L (31.0-37.0) g/dL RDW 19.0 H (11.5-15.5) % Plt Count 107 L (150-450) k/uL Lymphocytes # (1.0-4.8) k/uL Retic Count (0.5-2.0) % Hemoglobin A1 (96.5-97.8) % Hemoglobin A2 (2.2-3.2) % POC Glucose (mg/dL) 227 H 324 H (75-99) mg/dL Hemoglobin A1c (4.0-6.0) % Iron (50-170) ug/dL Iron Saturation (12.00-45.00) Ferritin (10.0-291.0) ng/mL HDL Cholesterol (40-60) mg/dL Crossmatch CT scan - abdomen: report reviewed (Dr. Thomas) Assessment and Plan (1) Microcytic anemia Narrative/Plan: 53-year-old female with a history of alcohol abuse with underlying alcohol liver cirrhosis portal hypertension and ascites radiographically presents with complaints of hernia discomfort as well as microcytic hypochromic iron deficien cy anemia without overt GI bleeding. Report history of chronic epistaxis as much as twice a week for years. EGD colonoscopy performed fall by Dr. Chavez Marmolejo; EGD reported as normal colonoscopy identified colonic diverticulosis. FOBT negative. Etiology of her anemia appears to be multifactorial in nature could be a component of anemia of chronic underlying alcohol liver disease as well as acute on chronic blood loss from epistaxis. Acute blood loss from upper GI pathology small bowel cannot be excluded. Current Visit: Yes Status: Acute Code(s): D50.9 - IRON DEFICIENCY ANEMIA, UNSPECIFIED SNOMED Code(s): 019729259 (2) Thrombocytopenia Current Visit: Yes Status: Acute Code(s): D69.6 - THROMBOCYTOPENIA, UNSPECIFIED SNOMED Code(s): 073143866 (3) Abdominal hernia Current Visit: Yes Status: Acute Code(s): K46.9 - UNSPECIFIED ABDOMINAL HERNIA WITHOUT OBSTRUCTION OR GANGRENE SNOMED Code(s): 31413568 (4) H/O ETOH abuse Current Visit: Yes Status: Acute Code(s): Z87.898 - PERSONAL HISTORY OF OTHER SPECIFIED CONDITIONS SNOMED Code(s): 631020285 (5) Recurrent epistaxis Current Visit: Yes Status: Acute Code(s): R04.0 - EPISTAXIS SNOMED Code(s): 340883580 (6) Alcoholic cirrhosis of liver with ascites Current Visit: Yes Status: Acute Code(s): K70.31 - ALCOHOLIC CIRRHOSIS OF LIVER WITH ASCITES SNOMED Code(s): 788978316 Plan: 1. General surgery may proceed with hernia repair as early as tomorrow. Outpatient EGD re-surveillance possible capsule study was discussed versus inpatient will be contingent on clinical course. Hematology consultation. CBC monitoring. PPI daily. Will follow with you. Thank you for this kind referral and the opportunity to participate in the care of your patient. This consultation was discussed with Dr. Thomas. The impression and plan of care have been directed as dictated.
--- NOTE | 2018-12-07 14:26 | P.PN ---
Subjective Progress Note Date: 12/07/18 CHIEF COMPLAINT: abdominal pain, hernia HISTORY OF PRESENT ILLNESS: Patient examined at the bedside. Patient continues to report generalized abdominal pain. She states she had a bowel movement yesterday but feels constipated. Dulcolax ordered this morning. patient reports having a BM since then. Tolerating diet. PHYSICAL EXAM: VITAL SIGNS: Reviewed. GENERAL: Well-developed in no acute distress. HEENT: No sclera icterus. Extraocular movements grossly intact. Moist buccal mucosa. Head is atraumatic, normocephalic. ABDOMEN: Soft. Nondistended. Large reducible abdominal hernia. NEUROLOGIC: Alert and oriented. Cranial nerves II through XII grossly intact. ASSESSMENT: 1. Abdominal pain 2. Large ventral hernia 3. Constipation, patient reports no bowel movement since Monday, x-ray shows large amount of fecal debris 4. History of alcohol abuse PLAN: Resume diet. Advance as tolerated. no inpatient surgical repair of hernia. Patient may follow up with Dr. Maxwell in one week to discuss surgical intervention. We will sign off. Please reconsult if needed. Nurse practitioner note has been reviewed by physician. Signing provider agrees with the documented findings, assessment, and plan of care. Objective - Vital Signs Vital signs: Vital Signs Temp 98.5 F 12/07/18 06:57 Pulse 80 12/07/18 06:57 Resp 19 12/07/18 01:29 BP 113/64 12/07/18 06:57 Pulse Ox 98 12/07/18 06:57 Intake & Output 12/06/18 12/07/18 12/07/18 18:59 06:59 18:59 Intake Total 992 850 Balance 992 850 Weight 61.6 kg 63.5 kg Intake: Oral 992 540 Blood Product 0 310 Rc As-1 Unit 0 310 [id number] Other: Voiding Method Bedside Commode # Voids 1 2 # Bowel Movements 1 - Labs CBC & Chem 7: 12/06/18 22:47 12/06/18 08:52 Labs: Abnormal Lab Results - Last 24 Hours (Table) 12/06/18 12/06/18 12/06/18 Range/Units 08:54 10:54 10:54 Hgb (11.4-16.0) gm/dL Hct (34.0-46.0) % MCV (80.0-100.0) fL MCH (25.0-35.0) pg MCHC (31.0-37.0) g/dL RDW (11.5-15.5) % Plt Count (150-450) k/uL Hemoglobin A1 (96.5-97.8) % Hemoglobin A2 (2.2-3.2) % POC Glucose (mg/dL) (75-99) mg/dL Hemoglobin A1c 12.5 H (4.0-6.0) % Iron 11 L (50-170) ug/dL Iron Saturation 2.45 L (12.00-45.00) Transferrin 383.0 H (204.0-354.0) mg/dL Ferritin 4.2 L (10.0-291.0) ng/mL Crossmatch See Detail 12/06/18 12/06/18 12/06/18 Range/Units 10:54 16:51 20:17 Hgb (11.4-16.0) gm/dL Hct (34.0-46.0) % MCV (80.0-100.0) fL MCH (25.0-35.0) pg MCHC (31.0-37.0) g/dL RDW (11.5-15.5) % Plt Count (150-450) k/uL Hemoglobin A1 98.3 H (96.5-97.8) % Hemoglobin A2 1.7 L (2.2-3.2) % POC Glucose (mg/dL) 329 H 227 H (75-99) mg/dL Hemoglobin A1c (4.0-6.0) % Iron (50-170) ug/dL Iron Saturation (12.00-45.00) Transferrin (204.0-354.0) mg/dL Ferritin (10.0-291.0) ng/mL Crossmatch 12/06/18 12/07/18 12/07/18 Range/Units 22:47 06:36 11:25 Hgb 7.6 L (11.4-16.0) gm/dL Hct 27.7 L (34.0-46.0) % MCV 64.4 L (80.0-100.0) fL MCH 17.7 L (25.0-35.0) pg MCHC 27.5 L (31.0-37.0) g/dL RDW 19.0 H (11.5-15.5) % Plt Count 107 L (150-450) k/uL Hemoglobin A1 (96.5-97.8) % Hemoglobin A2 (2.2-3.2) % POC Glucose (mg/dL) 324 H 294 H (75-99) mg/dL Hemoglobin A1c (4.0-6.0) % Iron (50-170) ug/dL Iron Saturation (12.00-45.00) Transferrin (204.0-354.0) mg/dL Ferritin (10.0-291.0) ng/mL Crossmatch
[2018-12-07 17:38] LABS: Glucose,Whole Blood 354 mg/dL (75-99)
--- NOTE | 2018-12-07 18:06 | P.CONS ---
History of Present Illness - Reason for Consult Consult date: 12/07/18 anemia, pancytopenia - History of Present Illness the patient is a 53-year-old white female, With a long-standing history of heavy alcohol use. The patient quit alcohol in late 09/15. He came into the emergency room, complaining of mid abdominal pain related to her known ventral hernia. This had been progressive over the past few days. She had not noted any change in bowel habits. On admission she was noted to have hemoglobin of 7.4, normal WBC, and platelets 147 subsequently declined to 107. Iron studies were suggestive of severe iron deficiency. Consult was therefore placed for further evaluation and recommendations. The patient has prior history of anemia, and states that she was transfused as recently as 07/15 in the [facility]. She also had an EGD and colonoscopy at that time that were negative according to her. She denies any blood per rectum or black stools. Over the past 2-3 weeks she states that she is having frequent nosebleeds lasting anywhere from 5 minutes to half an hour. Review of Systems Constitutional: Reports fatigue, Reports weakness Eyes: denies blurred vision, denies pain Ears: deny: decreased hearing, ear discharge, earache, tinnitus Ears, nose, mouth and throat: Denies headache, Denies sore throat Cardiovascular: Reports decreased exercise tolerance Respiratory: Denies cough Gastrointestinal: Reports abdominal pain, Reports bloating Genitourinary: Denies dysuria, Denies hematuria Menstruation: Reports postmenopausal Musculoskeletal: Reports muscle weakness Integumentary: Denies pruritus, Denies rash Neurological: Reports weakness Psychiatric: Reports as per HPI Endocrine: Reports fatigue Hematologic/Lymphatic: Reports as per HPI Past Medical History Past Medical History: Heart Failure, COPD, CVA/TIA, Memory Impairment Additional Past Medical History / Comment(s): anemia, constipation, liver disea se, alcholism, CVA 06/2018, borderline diabetes History of Any Multi-Drug Resistant Organisms: None Reported Past Surgical History: No Surgical Hx Reported Past Anesthesia/Blood Transfusion Reactions: No Reported Reaction Past Psychological History: No Psychological Hx Reported Smoking Status: Current every day smoker Past Alcohol Use History: Rare Past Drug Use History: Marijuana - Past Family History Sister(s) Family Medical History: Diabetes Mellitus Additional Family Medical History / Comment(s): liver disease in 1 sister, kidney disease in 1 sister, lymphoma Medications and Allergies Home Medications Medication Instructions Recorded Confirmed Type No Known Home Medications 12/05/18 12/05/18 History Allergies Allergy/AdvReac Type Severity Reaction Status Date / Time No Known Allergies Allergy Verified 12/05/18 14:06 Physical Exam Vitals: Vital Signs Temp Pulse Pulse Resp BP BP Pulse Ox 12/07/18 14:50 98.2 F 85 122/66 99 12/07/18 06:57 98.5 F 80 113/64 98 12/07/18 01:29 98.1 F 76 19 170/71 97 12/07/18 00:39 17 12/06/18 20:00 18 12/06/18 19:36 97.3 F L 79 18 111/71 99 12/06/18 19:00 98.0 F 79 18 107/65 100 Intake and Output 12/07/18 12/07/18 12/07/18 06:59 14:59 22:59 Other: # Voids 2 1 Weight 63.5 kg - Constitutional General appearance: no acute distress - EENT Eyes: EOMI, PERRLA ENT: hearing grossly normal, normal oropharynx - Neck Neck: lymphadenopathy Thyroid: bilateral: normal size - Respiratory Respiratory: bilateral: CTA - Cardiovascular Rhythm: regular Heart sounds: normal: S1, S2 - Gastrointestinal large ventral hernia, in midline. Soft, tender to palpation General gastrointestinal: distended, normal bowel sounds, soft - Integumentary Integumentary: normal - Neurologic Neurologic: CNII-XII intact - Musculoskeletal Musculoskeletal: generalized weakness, strength equal bilaterally - Psychiatric Psychiatric: A&O x's 3, appropriate affect Results CBC & Chem 7: 12/06/18 22:47 12/06/18 08:52 Labs: Abnormal Lab Results - Last 24 Hours (Table) 12/06/18 12/06/18 12/06/18 Range/Units 08:54 10:54 10:54 Hgb (11.4-16.0) gm/dL Hct (34.0-46.0) % MCV (80.0-100.0) fL MCH (25.0-35.0) pg MCHC (31.0-37.0) g/dL RDW (11.5-15.5) % Plt Count (150-450) k/uL Hemoglobin A1 (96.5-97.8) % Hemoglobin A2 (2.2-3.2) % POC Glucose (mg/dL) (75-99) mg/dL Hemoglobin A1c 12.5 H (4.0-6.0) % Transferrin 383.0 H (204.0-354.0) mg/dL Ferritin 4.2 L (10.0-291.0) ng/mL Crossmatch See Detail 12/06/18 12/06/18 12/06/18 Range/Units 10:54 20:17 22:47 Hgb 7.6 L (11.4-16.0) gm/dL Hct 27.7 L (34.0-46.0) % MCV 64.4 L (80.0-100.0) fL MCH 17.7 L (25.0-35.0) pg MCHC 27.5 L (31.0-37.0) g/dL RDW 19.0 H (11.5-15.5) % Plt Count 107 L (150-450) k/uL Hemoglobin A1 98.3 H (96.5-97.8) % Hemoglobin A2 1.7 L (2.2-3.2) % POC Glucose (mg/dL) 227 H (75-99) mg/dL Hemoglobin A1c (4.0-6.0) % Transferrin (204.0-354.0) mg/dL Ferritin (10.0-291.0) ng/mL Crossmatch 12/07/18 12/07/18 12/07/18 Range/Units 06:36 11:25 17:37 Hgb (11.4-16.0) gm/dL Hct (34.0-46.0) % MCV (80.0-100.0) fL MCH (25.0-35.0) pg MCHC (31.0-37.0) g/dL RDW (11.5-15.5) % Plt Count (150-450) k/uL Hemoglobin A1 (96.5-97.8) % Hemoglobin A2 (2.2-3.2) % POC Glucose (mg/dL) 324 H 294 H 354 H (75-99) mg/dL Hemoglobin A1c (4.0-6.0) % Transferrin (204.0-354.0) mg/dL Ferritin (10.0-291.0) ng/mL Crossmatch Abdominal x-ray: report reviewed CT scan - abdomen: report reviewed CT scan - pelvis: report reviewed Assessment and Plan (1) Microcytic anemia Narrative/Plan: The patient's labs confirmed iron deficiency anemia. She had macrocytic anemia, though hemoglobin was in the 10 range, in 04/14. She did have negative EGD and colonoscopy in 07/15. I suspect that she likely has small bowel AVMs related low volume chronic blood loss. Anemia is likely been exacerbated by multiple episodes of epistaxis in the last few weeks. Hemoglobin posttransfusion is stable at 7.4. The patient will be supplemented with IV iron. She states that she has taken iron in the past for about 6 months. In 07/15 when she ran out. Hemoglobin is stable she can be discharged on oral iron, with follow-up and monitoring to be continued as an outpatient Defer to GI, regarding need for repeat EGD,/possible capsule endoscopy Current Visit: Yes Status: Acute Code(s): D50.9 - IRON DEFICIENCY ANEMIA, UNSPECIFIED SNOMED Code(s): 795480415 (2) Thrombocytopenia Narrative/Plan: This has been chronic since at least 04/14. Platelet count is well within a safe range. This is most likely due to underlying marrow damage from alcohol chronic liver disease. Check labs to rule out other etiologies. Continue to monitor. Platelet count of greater than 50,000 is okay for any planned surgical procedure for her herniae Current Visit: Yes Status: Acute Code(s): D69.6 - THROMBOCYTOPENIA, UNSPECIFIED SNOMED Code(s): 417909823 Plan: Defer to the admitting service and other consultants for management of her other medical problems
[2018-12-07] MEDS: SODIUM FERRIC GLUCONAT-SUCROSE 125 MG in SODIUM CHLORIDE 0.9% 100 ML IVPB SCH (19:04)
[2018-12-07 19:49] LABS: Glucose,Whole Blood 193 mg/dL (75-99)
[2018-12-07] MEDS: INSULIN DETEMIR (LEVEMIR) 100 UNIT/ML SYR SQ SCH (20:32)
--- NOTE | 2018-12-07 21:17 | HP ---
HISTORY AND PHYSICAL CHIEF COMPLAINT: Abdominal pain. HISTORY OF PRESENT ILLNESS: This is the first admission for this 53-year-old white female who presented to the emergency room with abdominal pain. She has a huge periumbilical hernia and it was felt this might be incarcerated. She is also diabetic. She was not vomiting. She is not taking any medications at home by history. REVIEW OF SYSTEMS: She has had no vomiting, fever and chills, cough, shortness of breath, heart disease, problems with vision or hearing, hematochezia, melena, renal failure, frequency, urgency, etc. Past medical history, family history, personal and social history were otherwise unremarkable. She is not allergic to any medication and she is not thought to be taking any. She apparently does have a history of alcoholism. PHYSICAL EXAM: Blood pressure 130/85, pulse 86 and respirations 16. She is afebrile. In general she appeared to be slender and in some mild distress. Skin color is normal. Skin is warm, dry. Head, ears, eyes, nose, mouth and throat were normal. Chest is clear. Cardiac exam was normal sinus rhythm. Abdomen is soft and she has a huge, tender periumbilical hernia in the upper abdomen. Bowel sounds are heard. Extremities: Normal. Neurologically she is intact. She is admitted to the hospital with a diagnoses of: IMPRESSION: 1. Abdominal pain due to incarcerated umbilical hernia. 2. Hyperglycemia. 3. Anemia. 4. Type 2 noninsulin dependent diabetes mellitus. PLAN: 1. Bed rest. 2. IV fluids. 3. Watch blood sugars. 4. Have General Surgery consult. MMODL / IJN: [id number] /
--- NOTE | 2018-12-07 21:53 | PN ---
PROGRESS NOTE DATE OF SERVICE: 12/06/2018 CHIEF COMPLAINT: Incarcerated umbilical hernia and uncontrolled diabetes (new). HISTORY OF PRESENT ILLNESS: This lady continues to have significant epigastric in hernia pain. Her hemoglobin also gone from 7.1 to 6.4. Blood sugars are still slightly high. It turns out that she does consume a fairly large quantity of alcohol. PHYSICAL EXAM: Chest is clear. Cardiac exam is normal and the hernia is still quite tender. It is not red. Bowel sounds are heard. IMPRESSION: 1. Incarcerated umbilical hernia. 2. Anemia. 3. Alcoholism. 4. New onset diabetes. PLAN: Continue to monitor her blood sugars and wait for the surgery's evaluation. MMODL / IJN: [id number] /
--- NOTE | 2018-12-07 22:08 | PN ---
PROGRESS NOTE DATE OF SERVICE: 12/07/2018 CHIEF COMPLAINT: Abdominal pain and incarcerated umbilical hernia. HISTORY OF PRESENT ILLNESS: This lady is still having quite a bit of pain and it was thought that she was going to the operating room today, but it has been canceled. Blood sugars are quite high and these will be controlled before she is discharged. PHYSICAL EXAM: Chest is clear. Cardiac exam is normal and the hernia is still very tender. IMPRESSION: 1. Incarcerated umbilical hernia. 2. Uncontrolled diabetes mellitus. 3. Anemia. 4. Alcoholism. PLAN: Bring her blood sugars under control before discharge. MMODL / IJN: [id number] /
[2018-12-08 06:55] LABS: Glucose,Whole Blood 158 mg/dL (75-99)
[2018-12-08] MEDS: INSULIN ASPART (NovoLOG) 100 UNIT/ML VIAL SQ SCH ×7 (08:06→21:15)
[2018-12-08] MEDS: PANTOPRAZOLE 40 MG/10 ML VIAL IV SCH (08:07)
[2018-12-08] MEDS: SODIUM FERRIC GLUCONAT-SUCROSE 125 MG in SODIUM CHLORIDE 0.9% 100 ML IVPB SCH (09:57)
--- NOTE | 2018-12-08 10:35 | P.PN ---
Subjective Progress Note Date: 12/08/18 Principal diagnosis: Abdominal hernia Patient complaining of mild pain at the hernia site. She is hungry. No nausea or vomiting. Objective - Vital Signs Vital signs: Vital Signs Temp 98.4 F 12/08/18 07:00 Pulse 65 12/08/18 07:00 Resp 16 12/08/18 07:00 BP 102/66 12/08/18 07:00 Pulse Ox 100 12/08/18 07:00 Intake & Output 12/07/18 12/08/18 12/08/18 18:59 06:59 18:59 Intake Total 250 120 Balance 250 120 Weight 64.4 kg Intake: Intake, IV Titration 250 Amount Sodium Chloride 0.9% 1, 150 000 ml @ 75 mls/hr IV . [id number] PRACHI Rx#:[id number] Sodium Ferric Gluconat- 100 Sucrose 125 mg In Sodium Chloride 0.9% 100 ml @ 100 mls/hr IVPB DAILY PRACHI Rx#:[id number] Oral 120 Other: Voiding Method Bedside Commode # Voids 1 3 - Exam Abdomen: Soft, mild distention, hernia easily reducible at the umbilicus - Labs CBC & Chem 7: 12/06/18 22:47 12/06/18 08:52 Labs: Abnormal Lab Results - Last 24 Hours (Table) 12/06/18 12/07/18 12/07/18 Range/Units 10:54 11:25 17:37 POC Glucose (mg/dL) 294 H 354 H (75-99) mg/dL Transferrin 383.0 H (204.0-354.0) mg/dL 12/07/18 12/08/18 Range/Units 19:47 06:53 POC Glucose (mg/dL) 193 H 158 H (75-99) mg/dL Transferrin (204.0-354.0) mg/dL Assessment and Plan (1) Abdominal hernia Narrative/Plan: Patient with large abdominal wall hernia. This is reducible. Will add abdominal binder. Resume diet. Outpatient follow-up with Dr. Maxwell. Current Visit: Yes Status: Acute Code(s): K46.9 - UNSPECIFIED ABDOMINAL HERNIA WITHOUT OBSTRUCTION OR GANGRENE SNOMED Code(s): 77926669
[2018-12-08] MEDS: SODIUM CHLORIDE 0.9% 1,000 ML IV SCH (12:00)
[2018-12-08 12:21] LABS: Glucose,Whole Blood 147 mg/dL (75-99)
[2018-12-08 14:45] LABS: ALT 19 U/L (9-52); AST 35 U/L (14-36); Albumin 3.5 g/dL (3.5-5.0); Alkaline Phosphatase 74 U/L (38-126); Anion Gap 6 mmol/L; Blood Urea Nitrogen 8 mg/dL (7-17); Calcium 8.8 mg/dL (8.4-10.2); Carbon Dioxide 25 mmol/L (22-30); Chloride 107 mmol/L (98-107); Glucose 141 mg/dL (74-99); Sodium 138 mmol/L (137-145); Total Bilirubin 0.7 mg/dL (0.2-1.3); Total Protein 6.7 g/dL (6.3-8.2)
[2018-12-08 14:53] LABS: Anisocytosis Slight; Basophils % (A) 1 %; Eosinophils # (A) 0.1 k/uL (0-0.7); Eosinophils % (A) 4 %; HCT 31.5 % (34.0-46.0); HGB 8.3 gm/dL (11.4-16.0); Hypochromasia Marked; Lymphocytes # (A) 0.9 k/uL (1.0-4.8); Lymphocytes % (A) 29 %; MCH 18.1 pg (25.0-35.0); MCHC 26.5 g/dL (31.0-37.0); MCV 68.4 fL (80.0-100.0); Mean Platelet Volume 8.5; Microcytosis Marked; Monocytes # (A) 0.3 k/uL (0-1.0); Monocytes % (A) 9 %; Neutrophils # (A) 1.7 k/uL (1.3-7.7); Neutrophils % (A) 55 %; Platelet Count 117 k/uL (150-450); Poikilocytosis Moderate; RBC 4.61 m/uL (3.80-5.40); RDW 19.3 % (11.5-15.5)
[2018-12-08] MEDS: POLYETHYLENE GLYCOL 3350 17 GM POWD.PACK PO SCH (14:55)
--- NOTE | 2018-12-08 15:32 | PN ---
PROGRESS NOTE CHIEF COMPLAINT: Incarcerated umbilical hernia, anemia and uncontrolled diabetes. HISTORY OF PRESENT ILLNESS: This lady is doing fairly well except for her periumbilical pain. Blood sugars are doing better. Hemoglobin is still low, and this will be repeated. PHYSICAL EXAMINATION: Chest is clear. Cardiac exam is normal. The abdomen is soft and hernia seems more soft. IMPRESSION: 1. Incarcerated umbilical hernia. 2. Uncontrolled insulin-dependent diabetes mellitus. 3. Anemia. PLAN: 1. Repeat chemistry profile and CBC. 2. Start iron 325 t.i.d. 3. Possibly home tomorrow. MMODL / IJN: [id number] /
[2018-12-08 16:36] LABS: Protein, Total 6.5 g/dL (6.2-8.2); Rheumatoid Factor 8 IU/mL (0-15)
[2018-12-08 17:10] LABS: Glucose,Whole Blood 147 mg/dL (75-99)
[2018-12-08] MEDS: FERROUS SULFATE 325 MG TAB PO SCH (17:17)
--- NOTE | 2018-12-08 18:37 | P.PN ---
Subjective Progress Note Date: 12/08/18 Principal diagnosis: Microcytic anemia Patient is seen lying in bed tolerating her diet. No signs or symptoms of GI bleeding reported. So reporting some abdominal, for around her umbilical ventral hernia site. Objective - Vital Signs Vital signs: Vital Signs Temp 98.0 F 12/08/18 15:00 Pulse 77 12/08/18 15:00 Resp 16 12/08/18 15:00 BP 108/64 12/08/18 15:00 Pulse Ox 99 12/08/18 15:00 Intake & Output 12/07/18 12/08/18 12/08/18 18:59 06:59 18:59 Intake Total 250 720 Balance 250 720 Weight 64.4 kg Intake: IV 600 Sodium Chloride 0.9% 1, 600 000 ml @ 75 mls/hr IV . [id number] PRACHI Rx#:[id number] Intake, IV Titration 250 Amount Sodium Chloride 0.9% 1, 150 000 ml @ 75 mls/hr IV . [id number] PRACHI Rx#:[id number] Sodium Ferric Gluconat- 100 Sucrose 125 mg In Sodium Chloride 0.9% 100 ml @ 100 mls/hr IVPB DAILY PRACHI Rx#:[id number] Oral 120 Other: Voiding Method Bedside Commode # Voids 1 3 2 - Exam On physical examination, patient appears comfortable in no apparent distress. HEAD: Normocephalic, atraumatic. EYES: No scleral icterus. No conjunctival injection. MOUTH: No lesions, tongue midline. NECK: Trachea midline, no gross abnormalities. CHEST: Decreased air entry in all lung kennedy. HEART: S1-S2 appreciated. ABDOMEN: Soft, obese, large reducible umbilical ventral hernia. Bowel sounds are positive. No organomegaly. No guarding or rigidity. EXTREMITIES: No pedal edema. SKIN: No rashes, no jaundice. NEUROLOGIC: Alert and oriented x3. No focal deficits. - Labs CBC & Chem 7: 12/08/18 07:49 12/08/18 07:49 Labs: Abnormal Lab Results - Last 24 Hours (Table) 12/07/18 12/08/18 12/08/18 Range/Units 19:47 06:53 07:49 WBC 3.0 L (3.8-10.6) k/uL Hgb 8.3 L (11.4-16.0) gm/dL Hct 31.5 L (34.0-46.0) % MCV 68.4 L (80.0-100.0) fL MCH 18.1 L (25.0-35.0) pg MCHC 26.5 L (31.0-37.0) g/dL RDW 19.3 H (11.5-15.5) % Plt Count 117 L (150-450) k/uL Lymphocytes # 0.9 L (1.0-4.8) k/uL Creatinine (0.52-1.04) mg/dL Glucose (74-99) mg/dL POC Glucose (mg/dL) 193 H 158 H (75-99) mg/dL 12/08/18 12/08/18 12/08/18 Range/Units 07:49 11:40 17:09 WBC (3.8-10.6) k/uL Hgb (11.4-16.0) gm/dL Hct (34.0-46.0) % MCV (80.0-100.0) fL MCH (25.0-35.0) pg MCHC (31.0-37.0) g/dL RDW (11.5-15.5) % Plt Count (150-450) k/uL Lymphocytes # (1.0-4.8) k/uL Creatinine 0.35 L (0.52-1.04) mg/dL Glucose 141 H (74-99) mg/dL POC Glucose (mg/dL) 147 H 147 H (75-99) mg/dL Assessment and Plan (1) Microcytic anemia Narrative/Plan: Microcytic anemia likely multifactorial in the setting of recurrent epistaxis. The patient previously underwent endoscopic evaluation in 2018 with no source of bleeding noted, and having stool negative for occult blood on this presentation. The patient has also been seen by the hematology service and is receiving iron supplementation. Current Visit: Yes Status: Acute Code(s): D50.9 - IRON DEFICIENCY ANEMIA, UNSPECIFIED SNOMED Code(s): 329724869 (2) Alcoholic cirrhosis of liver with ascites Current Visit: Yes Status: Acute Code(s): K70.31 - ALCOHOLIC CIRRHOSIS OF LIVER WITH ASCITES SNOMED Code(s): 191815679 (3) Recurrent epistaxis Current Visit: Yes Status: Acute Code(s): R04.0 - EPISTAXIS SNOMED Code(s): 422876967 Plan: Supportive care Okay for diet Continue to monitor hemoglobin and transfuse as needed Agree with iron supplementation Appreciate hematology recommendations No plans for endoscopic evaluation at this time, if patient has further fall in hemoglobin or signs or symptoms of GI bleeding develop consider second look upper endoscopy and/or video capsule endoscopy Thank you for allowing us to participate in the care of the patient, the gastroenterology service will stand by, please call us back with any questions or concerns
[2018-12-08 20:41] LABS: Glucose,Whole Blood 148 mg/dL (75-99)
[2018-12-08] MEDS: INSULIN DETEMIR (LEVEMIR) 100 UNIT/ML SYR SQ SCH (21:15)
[2018-12-08] MEDS: HYDROcodone/APAP 5-325MG 1 EACH TAB PO PRN (21:21)
[2018-12-09] MEDS: SODIUM CHLORIDE 0.9% 1,000 ML IV SCH ×2 (01:34→21:29)
[2018-12-09] MEDS: PANTOPRAZOLE 40 MG/10 ML VIAL IV SCH (07:53)
[2018-12-09] MEDS: POLYETHYLENE GLYCOL 3350 17 GM POWD.PACK PO SCH (07:53)
[2018-12-09] MEDS: INSULIN ASPART (NovoLOG) 100 UNIT/ML VIAL SQ SCH ×7 (07:54→21:28)
[2018-12-09] MEDS: FERROUS SULFATE 325 MG TAB PO SCH ×3 (07:54→17:46)
[2018-12-09 07:55] LABS: Glucose,Whole Blood 165 mg/dL (75-99)
--- NOTE | 2018-12-09 10:14 | P.PN ---
Subjective Progress Note Date: 12/09/18 Principal diagnosis: Abdominal hernia Patient doing well today. Pain is improved with the abdominal binder. Tolerating diet. Objective - Vital Signs Vital signs: Vital Signs Temp 98.3 F 12/09/18 07:00 Pulse 71 12/09/18 07:00 Resp 20 12/09/18 07:00 BP 102/59 12/09/18 07:00 Pulse Ox 98 12/09/18 07:00 Intake & Output 12/08/18 12/09/18 12/09/18 18:59 06:59 18:59 Intake Total 720 200 Output Total 400 Balance 720 -400 200 Weight 64.5 kg Intake: IV 600 Sodium Chloride 0.9% 1, 600 000 ml @ 75 mls/hr IV . [id number] PRACHI Rx#:[id number] Oral 120 200 Output: Urine 400 Other: # Voids 2 2 - Exam Abdomen: Soft, nondistended, reducible hernia noted - Labs CBC & Chem 7: 12/08/18 07:49 12/08/18 07:49 Labs: Abnormal Lab Results - Last 24 Hours (Table) 12/08/18 12/08/18 12/08/18 Range/Units 07:49 07:49 11:40 WBC 3.0 L (3.8-10.6) k/uL Hgb 8.3 L (11.4-16.0) gm/dL Hct 31.5 L (34.0-46.0) % MCV 68.4 L (80.0-100.0) fL MCH 18.1 L (25.0-35.0) pg MCHC 26.5 L (31.0-37.0) g/dL RDW 19.3 H (11.5-15.5) % Plt Count 117 L (150-450) k/uL Lymphocytes # 0.9 L (1.0-4.8) k/uL Creatinine 0.35 L (0.52-1.04) mg/dL Glucose 141 H (74-99) mg/dL POC Glucose (mg/dL) 147 H (75-99) mg/dL 12/08/18 12/08/18 12/09/18 Range/Units 17:09 20:38 07:53 WBC (3.8-10.6) k/uL Hgb (11.4-16.0) gm/dL Hct (34.0-46.0) % MCV (80.0-100.0) fL MCH (25.0-35.0) pg MCHC (31.0-37.0) g/dL RDW (11.5-15.5) % Plt Count (150-450) k/uL Lymphocytes # (1.0-4.8) k/uL Creatinine (0.52-1.04) mg/dL Glucose (74-99) mg/dL POC Glucose (mg/dL) 147 H 148 H 165 H (75-99) mg/dL Assessment and Plan (1) Abdominal hernia Narrative/Plan: Continue diet as tolerated. Will have patient follow-up with Dr. Maxwell after discharge. We'll sign off at this point. Current Visit: Yes Status: Acute Code(s): K46.9 - UNSPECIFIED ABDOMINAL HERNIA WITHOUT OBSTRUCTION OR GANGRENE SNOMED Code(s): 28650910
[2018-12-09] MEDS: SODIUM FERRIC GLUCONAT-SUCROSE 125 MG in SODIUM CHLORIDE 0.9% 100 ML IVPB SCH (10:19)
[2018-12-09] MEDS: HYDROcodone/APAP 5-325MG 1 EACH TAB PO PRN ×2 (10:25→20:33)
[2018-12-09 11:39] LABS: Glucose,Whole Blood 234 mg/dL (75-99)
[2018-12-09 17:06] VITALS: BMI 25.9
[2018-12-09 17:21] LABS: Glucose,Whole Blood 196 mg/dL (75-99)
[2018-12-09] MEDS ORDERED: BISACODYL 10 MG SUPP RECTAL STA (18:46)
[2018-12-09 19:41] LABS: Glucose,Whole Blood 144 mg/dL (75-99)
--- NOTE | 2018-12-09 21:04 | PN ---
PROGRESS NOTE CHIEF COMPLAINT: Abdominal pain. HISTORY OF PRESENT ILLNESS: This lady is doing reasonably well. Her abdominal pain continues. Blood sugars are better. She will probably be able to go home tomorrow. PHYSICAL EXAM: Chest is clear. Cardiac exam is normal. An umbilical hernia is about the same and cannot be reduced. It is tender. Bowel sounds are present. IMPRESSION: 1. Incarcerated umbilical hernia. 2. Uncontrolled diabetes. 3. Anemia. 4. Alcoholism. PLAN: Probably home tomorrow. MMODL / IJN: [id number] /
[2018-12-09] MEDS: INSULIN DETEMIR (LEVEMIR) 100 UNIT/ML SYR SQ SCH (21:27)
[2018-12-10 02:33] VITALS: PULSE 70
[2018-12-10] MEDS: SODIUM CHLORIDE 0.9% 1,000 ML IV SCH (03:39)
[2018-12-10 07:07] LABS: Glucose,Whole Blood 148 mg/dL (75-99)
[2018-12-10] MEDS ORDERED: PANTOPRAZOLE 40 MG TABLET PO SCH (07:30)
[2018-12-10] MEDS: INSULIN ASPART (NovoLOG) 100 UNIT/ML VIAL SQ SCH ×4 (07:56→12:31)
[2018-12-10] MEDS: FERROUS SULFATE 325 MG TAB PO SCH ×2 (07:56→12:31)
[2018-12-10] MEDS: POLYETHYLENE GLYCOL 3350 17 GM POWD.PACK PO SCH (08:02)
[2018-12-10 08:05] VITALS: BP 113/64; RESP 16; TEMP 97.5
[2018-12-10 11:38] LABS: Glucose,Whole Blood 183 mg/dL (75-99)
[2018-12-10 13:45] LABS: Albumin 3.21 g/dL (3.80-4.90); Gamma Globulin 1.35 g/dL (0.70-1.50)
--- NOTE | 2018-12-10 16:19 | P.PN ---
Subjective Progress Note Date: 12/10/18 Principal diagnosis: Anemia, epistaxis Objective - Vital Signs Vital signs: Vital Signs Temp 97.5 F L 12/10/18 07:00 Pulse 70 12/10/18 07:00 Resp 16 12/10/18 07:00 BP 113/64 12/10/18 07:00 Pulse Ox 95 12/10/18 07:00 Intake & Output 12/09/18 12/10/18 12/10/18 18:59 06:59 18:59 Intake Total 400 715 Balance 400 715 Weight 64.5 kg 65 kg Intake: Oral 400 715 Other: # Voids 3 2 - Exam - Constitutional General appearance: no acute distress - EENT Eyes: EOMI, PERRLA ENT: hearing grossly normal, normal oropharynx - Neck Neck: lymphadenopathy Thyroid: bilateral: normal size - Respiratory Respiratory: bilateral: CTA - Cardiovascular Rhythm: regular Heart sounds: normal: S1, S2 - Gastrointestinal large ventral hernia, in midline. Soft, tender to palpation General gastrointestinal: distended, normal bowel sounds, soft - Integumentary Integumentary: normal - Neurologic Neurologic: CNII-XII intact - Musculoskeletal Musculoskeletal: generalized weakness, strength equal bilaterally - Psychiatric Psychiatric: A&O x's 3, appropriate affect - Labs CBC & Chem 7: 12/08/18 07:49 12/08/18 07:49 Labs: Abnormal Lab Results - Last 24 Hours (Table) 12/08/18 12/08/18 12/09/18 Range/Units 07:49 07:49 17:14 POC Glucose (mg/dL) 196 H (75-99) mg/dL Albumin (PEP) 3.21 L (3.80-4.90) g/dL [id number] 0.44 H (0.10-0.40) g/dL RBC Folate 965 H (280 - 791) ng/mL Free Lowrys LC, Quant 5.44 H (0.33-1.94) mg/dL Free Lambda LC, Quant 3.06 H (0.57-2.63) mg/dL 12/09/18 12/10/18 12/10/18 Range/Units 19:39 07:03 11:37 POC Glucose (mg/dL) 144 H 148 H 183 H (75-99) mg/dL Albumin (PEP) (3.80-4.90) g/dL Zljeu-[id number]-Eylhwaprk (0.10-0.40) g/dL RBC Folate (280 - 791) ng/mL Free Lowrys LC, Quant (0.33-1.94) mg/dL Free Lambda LC, Quant (0.57-2.63) mg/dL Assessment and Plan Plan: Abdominal x-ray: report reviewed CT scan - abdomen: report reviewed CT scan - pelvis: report reviewed Assessment and Plan (1) Microcytic anemia - Related to Iron Deficiency Anemia secondary to Epistaxis and poss GI Blood Loss AVMs - Status Post Parental Iron Infusions - Recheck CBC today (2) Thrombocytopenia - Chronic known since 03/2018 - Remain in safe range - Likely due to underlying marrow damage from alcoholic chronic liver disease PLAN: - Defer Hernia management to Gen Surg - CBC Daily, Recheck today
--- NOTE | 2018-12-10 19:28 | DS ---
DISCHARGE SUMMARY CHIEF COMPLAINT: Abdominal pain. HISTORY OF PRESENT ILLNESS AND PHYSICAL EXAM: Details of this lady's history and physical can be found in the initial workup. LABORATORY STUDIES: While she was in the hospital, she had laboratory studies, details of which can be found in the laboratory section of her chart. COURSE IN HOSPITAL: After admission, she was placed on bedrest, started on intravenous fluids and seen by General Surgery. It was felt that she may have a large incarcerated umbilical hernia. While in the hospital, her blood sugars are also elevated and these required management with insulin. The surgery decided not to operate on her at this time and wanted to schedule her as an outpatient after her other problems were stabilized including anemia. It turns out she had been a very heavy drinker. Blood sugars were brought under control. It was felt she could go home on the . FINAL DIAGNOSES: 1. Incarcerated, large umbilical hernia. 2. Uncontrolled insulin-dependent diabetes mellitus. 3. Anemia probably related to alcoholism. 4. Chronic alcoholism. OPERATIONS: None. CONSULTATIONS: General surgery. She is improved. MMCORBY / MISA: [id number] /
== END 2018-12-10 15:20 | disposition home health service (06) ==
LOC: EC 12:20 → 4SSUR 15:22
PROVIDERS: ADMIT Family Medicine; ATTEND Family Medicine
DX: K42.0 Umbilical hernia with obstruction, without gangrene (principal); E11.65 Type 2 diabetes mellitus with hyperglycemia; D50.9 Iron deficiency anemia, unspecified; D69.6 Thrombocytopenia, unspecified; K70.31 Alcoholic cirrhosis of liver with ascites; K59.00 Constipation, unspecified; F10.20 Alcohol dependence, uncomplicated; R20.2 Paresthesia of skin; I50.9 Heart failure, unspecified; F17.200 Nicotine dependence, unspecified, uncomplicated; J44.9 Chronic obstructive pulmonary disease, unspecified; R04.0 Epistaxis; K76.6 Portal hypertension; R16.1 Splenomegaly, not elsewhere classified; K57.90 Diverticulosis of intestine, part unspecified, without perforation or abscess without bleeding; R41.3 Other amnesia; Z86.73 Personal history of transient ischemic attack (TIA), and cerebral infarction without residual deficits; Z83.3 Family history of diabetes mellitus; Z84.1 Family history of disorders of kidney and ureter; Z83.79 Family history of other diseases of the digestive system; Z80.7 Family history of other malignant neoplasms of lymphoid, hematopoietic and related tissues
CPT/HCPCS: 96376 ×4; 96361 ×5; 96365; 96366 ×2; 96375 ×2; 99285; 36415; 93005; 86900; 86901; 82747; 80061; 80053 ×3; 82607; 82728; 82150; 83021; 83540; 83550; 83690; 85025 ×3; 85610; 85045; 85730; 86850; 86920; 86431; 82272; 81003; 84165; 84466; 86038; 86334; 83883; 83036; 74018; 74176; G0378 ×6; P9016; J2916 ×3; J1170 ×2; C9113 ×4

== ENCOUNTER → 2018-12-27 | Outpatient (CLI) | payer OTHER ==
[2018-12-27 15:05] LABS: INR 1.1 (<1.2); Partial Thromboplastin Time 25.2 sec (22.0-30.0); Prothrombin Time 11.3 sec (9.0-12.0)
[2018-12-27 15:12] LABS: Albumin 4.4 g/dL (3.5-5.0); Anion Gap 9 mmol/L; Blood Urea Nitrogen 13 mg/dL (7-17); Carbon Dioxide 25 mmol/L (22-30); Chloride 104 mmol/L (98-107); Potassium 4.9 mmol/L (3.5-5.1); Sodium 138 mmol/L (137-145)
[2018-12-27 15:18] LABS: Anisocytosis Marked; HCT 36.8 % (34.0-46.0); Hypochromasia Marked; MCH 23.1 pg (25.0-35.0); Mean Platelet Volume 7.8; Microcytosis Marked; RBC 4.79 m/uL (3.80-5.40); WBC 3.7 k/uL (3.8-10.6)
[2018-12-27 15:21] LABS: Platelet Count 195 k/uL (150-450); RDW 29.6 % (11.5-15.5)
[2018-12-27 15:22] LABS: MCV 76.8 fL (80.0-100.0)
[2018-12-27 15:46] LABS: Band Neutrophils % 2 %; Eosinophils # (M) 0.15 k/uL (0-0.7); Monocytes # (M) 0.19 k/uL (0-1.0); Neutrophils % (M) 62 %; Nucleated Red Blood Cells 0 /100 WBC (0-0); Total Cells Counted 100
[2018-12-27 15:47] LABS: Mixed Population RBC Present
== END | disposition home or self-care (01) ==
LOC: LABPAT 13:31
PROVIDERS: ATTEND Surgery
DX: Z01.812 Encounter for preprocedural laboratory examination (principal); K43.0 Incisional hernia with obstruction, without gangrene; K74.60 Unspecified cirrhosis of liver; Z79.4 Long term (current) use of insulin; Z79.899 Other long term (current) drug therapy
CPT/HCPCS: 36415; 80051; 82040; 82565; 84520; 85025; 85610; 85730

== ENCOUNTER 2018-12-31 10:52 | Observation (INO) | payer OTHER ==
[~2018-12-31 10:52] MED LIST: DEXAMETHASONE SOD PHOSPHATE 10 MG/ML 1 ML VIAL IV ONE; HEPARIN SODIUM,PORCINE 5,000 UNIT/ML 1 ML VIAL SQ ONE; LACTATED RINGERS 1,000 ML IV SCH; LIDOCAINE 1% 20 ML VIAL (10MG/ML) FOR IV START INTRADERMA PRN; MIDAZOLAM 2 MG/2 ML VIAL IV PRN; ONDANSETRON 4 MG/2 ML VIAL IVP ONE; ceFAZolin IN SWFI 2 GM/20 ML SYRINGE IVP ONE; fentaNYL (PF) 50 MCG/ML 2 ML AMP IV PRN
[2018-12-31 11:33] LABS: Glucose,Whole Blood 291 mg/dL (75-99)
[2018-12-31] MEDS ORDERED: LACTATED RINGERS 1,000 ML IV ONE ×3 (11:37→14:52)
[2018-12-31] MEDS ORDERED: INSULIN ASPART (NovoLOG) 100 UNIT/ML VIAL SQ ONE (11:43)
--- NOTE | 2018-12-31 12:27 | P.ONQ ---
Anesthesiology Proc Note - PNB - Peripheral Nerve Block Performed Bilateral Transversus Abdominis Single Procedure Start Time: 12:15 Procedure Stop Time: 12:23 Indication: Acute Post-Operative Pain, Requested by physician Sedation Type: Sedate with meaningful contact maintained Preparation: Sterile Prep Position: Supine Catheter: None Needle Types: Facet Needle Size: 100mm (4") Injectate: Other (see comment) (Ropivacaine 0.25% 30 ml per side) Blood Aspirated: No Pain Paresthesia on Injection Noted: No Resistance on Injection: Normal Events: Uneventful and Well Tolerated
[2018-12-31 12:30] LABS: Glucose,Whole Blood 227 mg/dL (75-99)
[2018-12-31] MEDS ORDERED: KETOROLAC 30 MG/ML 1 ML VIAL ONE (12:30)
[2018-12-31] MEDS ORDERED: ROPIVACAINE 5 MG/ML 30 ML VIAL ONE (12:30)
[2018-12-31] MEDS ORDERED: ROCURONIUM BROMIDE 10 MG/ML 10 ML VIAL IV ONE (12:30)
[2018-12-31] MEDS ORDERED: fentaNYL (PF) 50 MCG/ML 2 ML AMP ONE (12:30)
[2018-12-31] MEDS ORDERED: LIDOCAINE 1% INJ 10MG/ML (20 ML MDV) ONE (12:30)
[2018-12-31] MEDS ORDERED: MIDAZOLAM 2 MG/2 ML VIAL ONE (12:30)
[2018-12-31] MEDS ORDERED: GLYCOPYRROLATE 0.2 MG/ML 2 ML VIAL ONE (12:30)
[2018-12-31] MEDS ORDERED: SUCCINYLCHOLINE CHLORIDE 100 MG/5 ML SYR IV ONE (12:30)
[2018-12-31] MEDS ORDERED: NEOSTIGMINE 1 MG/ML 10 ML VIAL ONE (12:30)
[2018-12-31] MEDS ORDERED: PROPOFOL 10 MG/ML 20 ML VIAL IV ONE (12:30)
--- NOTE | 2018-12-31 12:31 | P.GSHP ---
History of Present Illness H&P Date: 12/31/18 Chief Complaint: Ventral hernia incarcerated This is a 53-year-old female who presents today for open repair of incarcerated ventral hernia. Past Medical History Past Medical History: Heart Failure, COPD, CVA/TIA, Diabetes Mellitus, Liver Disease, Memory Impairment Additional Past Medical History / Comment(s): 12/05/18 ADMISSION FOR Anemia AND HYPOGLYCEMIA. IDD. Constipation. Liver disease, alcholism. CVA 05/2018, NO RESIDUAL. History of Any Multi-Drug Resistant Organisms: None Reported Past Surgical History: No Surgical Hx Reported Additional Past Surgical History / Comment(s): ENDOSCOPIES ONLY. Past Anesthesia/Blood Transfusion Reactions: No Reported Reaction Additional Past Anesthesia/Blood Transfusion Reaction / Comment(s): Never had general anethesia. BLOOD TRANSFUSION ON 12/08/18 , NO REACTION. Past Psychological History: No Psychological Hx Reported Smoking Status: Current every day smoker Past Alcohol Use History: Abuse Additional Past Alcohol Use History / Comment(s): .5 PDD, FOR 20 YRS. LAST ALCHOLIC DRINK ON 08/07/18. Past Drug Use History: Marijuana Additional Drug Use History / Comment(s): NO CURRENT USE OF MARIJUANA - Past Family History Sister(s) Family Medical History: Diabetes Mellitus Additional Family Medical History / Comment(s): liver disease in 1 sister, kidney disease in 1 sister, lymphoma Medications and Allergies Home Medications Medication Instructions Recorded Confirmed Type Ferrous Sulfate [Iron (65 MG 325 mg PO TID-W/MEALS #90 tab 12/10/18 12/28/18 Rx Elemental)] INSULIN ASPART (NovoLOG) [NovoLOG 6 unit SQ TID #1 vial 12/10/18 12/28/18 Rx (formulary)] Pantoprazole [Protonix] 40 mg PO AC-BRKFST #30 tablet. 12/10/18 12/28/18 Rx Insulin Detemir (Levemir) [Levemir] 15 unit SQ HS 12/28/18 12/28/18 History Allergies Allergy/AdvReac Type Severity Reaction Status Date / Time No Known Allergies Allergy Verified 12/28/18 08:32 Surgical - Exam Vital Signs Temp Pulse Resp BP Pulse Ox 98.2 F 90 18 188/96 100 12/31/18 11:21 12/31/18 11:21 12/31/18 11:21 12/31/18 11:21 12/31/18 11:21 - General well developed, well nourished, no distress - Eyes PERRL - ENT normal pinna - Neck no masses - Respiratory normal expansion - Cardiovascular Rhythm: regular - Abdomen Abdomen: soft, non tender Hernia: incarcerated (5 cm incarcerated ventral hernia) Results - Labs Abnormal Lab Results - Last 24 Hours (Table) 12/31/18 Range/Units 11:32 POC Glucose (mg/dL) 291 H (75-99) mg/dL Assessment and Plan Assessment: Incarcerated ventral hernia. We'll perform open repair. Patient is high risk due to previous alcohol abuse and cirrhosis.
[2018-12-31] MEDS ORDERED: SODIUM CHLORIDE 0.9% 50 ML with ceFAZolin 2,000 MG IV ONE ×2 (12:35)
[2018-12-31] MEDS ORDERED: DEXTROSE 50% SYRINGE 50 ML IVP ONE (13:40)
[2018-12-31] MEDS ORDERED: ACETAMINOPHEN TAB 325 MG TAB PO PRN (13:51)
[2018-12-31] MEDS ORDERED: METOCLOPRAMIDE 5 MG/ML 2 ML VIAL IVP PRN (13:51)
[2018-12-31] MEDS ORDERED: ONDANSETRON 4 MG/2 ML VIAL IVP PRN (13:51)
[2018-12-31] MEDS ORDERED: NALOXONE 0.4 MG/ML 1 ML VIAL IV PRN (13:51)
[2018-12-31] MEDS: HYDROmorphone 0.5 MG/0.5 ML SYRINGE IVP PRN ×4 (13:54→21:25)
[2018-12-31] MEDS ORDERED: HYDROmorphone 1 MG/ML 1 ML SYRINGE IVP ONE ×2 (14:30→14:50)
[2018-12-31 14:48] LABS: Glucose,Whole Blood 68 mg/dL (75-99)
[2018-12-31 14:49] LABS: Glucose,Whole Blood 78 mg/dL (75-99)
[2018-12-31 14:49] LABS: Glucose,Whole Blood 74 mg/dL (75-99)
[2018-12-31 20:16] LABS: Glucose,Whole Blood 194 mg/dL (75-99)
[2018-12-31] MEDS: INSULIN ASPART (NovoLOG) 100 UNIT/ML VIAL SQ SCH (21:00)
[2019-01-01] MEDS: HYDROmorphone 0.5 MG/0.5 ML SYRINGE IVP PRN ×6 (01:54→22:05)
[2019-01-01 06:46] LABS: Glucose,Whole Blood 141 mg/dL (75-99)
[2019-01-01] MEDS: INSULIN ASPART (NovoLOG) 100 UNIT/ML VIAL SQ SCH ×6 (06:50→20:29)
[2019-01-01] MEDS: ENOXAPARIN 40 MG/0.4 ML SYRINGE SQ SCH (07:49)
[2019-01-01] MEDS ORDERED: HYDROmorphone 0.5 MG/0.5 ML SYRINGE IVP PRN (11:12)
[2019-01-01] MEDS: HYDROcodone/APAP 5-325MG 1 EACH TAB PO PRN ×2 (11:14→18:40)
[2019-01-01 12:00] LABS: Glucose,Whole Blood 186 mg/dL (75-99)
[2019-01-01] MEDS: FERROUS SULFATE 325 MG TAB PO SCH ×2 (12:52→18:06)
--- NOTE | 2019-01-01 13:28 | P.PN ---
Subjective Progress Note Date: 01/01/19 CHIEF COMPLAINT: Ventral hernia HISTORY OF PRESENT ILLNESS: 53-year-old female who underwent open repair of incarcerated ventral hernia. Patient examined at the bedside. Patient reports abdominal pain, improved with narcotics. Patient tolerating diet. Denies nausea or vomiting. Passing flatus. Denies BM. Vital signs are stable. PHYSICAL EXAM: VITAL SIGNS: Reviewed. GENERAL: Well-developed in no acute distress. HEENT: No sclera icterus. Extraocular movements grossly intact. Moist buccal mucosa. Head is atraumatic, normocephalic. ABDOMEN: Soft. Nondistended. Surgical dressing clean dry and intact. TRELL drain with serosanguineous drainage. Abdominal binder present. NEUROLOGIC: Alert and oriented. Cranial nerves II through XII grossly intact. ASSESSMENT: 1. Status post open repair of incarcerated ventral hernia PLAN: 1. Pain control 2. Activity as tolerated 3. Incentive spirometry 4. Patient states she is not ready for discharge today. Discharge will be held and patient will be discharged home in the morning Nurse practitioner note has been reviewed by physician. Signing provider agrees with the documented findings, assessment, and plan of care. Objective - Vital Signs Vital signs: Vital Signs Temp 97.9 F 01/01/19 12:15 Pulse 67 01/01/19 12:15 Resp 18 01/01/19 12:15 BP 125/72 01/01/19 12:15 Pulse Ox 99 01/01/19 12:15 Intake & Output 12/31/18 01/01/19 01/01/19 18:59 06:59 18:59 Intake Total 1050 600 Output Total 5 305 20 Balance 1045 295 -20 Intake: IV 1050 Oral 600 Output: Drainage 55 20 Right Upper Abdomen 55 20 Urine 250 Estimated Blood Loss 5 Other: Voiding Method Toilet # Voids 1 - Labs Labs: Abnormal Lab Results - Last 24 Hours (Table) 12/31/18 12/31/18 12/31/18 Range/Units 13:34 13:55 20:14 POC Glucose (mg/dL) 68 L 74 L 194 H (75-99) mg/dL 01/01/19 01/01/19 Range/Units 06:45 11:58 POC Glucose (mg/dL) 141 H 186 H (75-99) mg/dL
[2019-01-01 14:22] VITALS: BMI 26.2
--- NOTE | 2019-01-01 16:15 | PN ---
PROGRESS NOTE DATE OF SERVICE: 01/01/2019 CHIEF COMPLAINT: Status post umbilical herniorrhaphy. HISTORY OF PRESENT ILLNESS: This lady is doing fairly well. She has had no problems. She is awake and alert. PHYSICAL EXAMINATION: She is slightly pale. Chest is clear. Cardiac exam is normal. She is in an abdominal binder. IMPRESSION: 1. Status post large umbilical herniorrhaphy. 2. Anemia. 3. Alcoholism. 4. Diabetes. PLAN: Continue to follow blood sugars while she is in the hospital. MMODL / IJN: [id number] /
[2019-01-01 18:04] LABS: Glucose,Whole Blood 112 mg/dL (75-99)
[2019-01-01 20:28] LABS: Glucose,Whole Blood 81 mg/dL (75-99)
--- NOTE | 2019-01-01 20:34 | CONS ---
CONSULTATION CHIEF COMPLAINT: Large periumbilical hernia. HISTORY OF PRESENT ILLNESS: This is another admission for this 53-year-old white female who was in the hospital recently with a hernia and abdominal pain. She returns for elective herniorrhaphy. She is diabetic and alcoholic and was anemic when she originally presented. REVIEW OF SYSTEMS: She has had no headaches, change in the vision or the hearing, cough, hemoptysis, shortness of breath, angina, infarctions, abdominal pain, nausea, vomiting, hematemesis, melena, hematochezia, jaundice, renal failure, hematuria, frequency, dysuria, etc. Her blood sugars are not well controlled yet. Past medical history, family history, and personal and social histories are all unchanged from her recent admission. Hemoglobin is higher. PHYSICAL EXAMINATION: Blood pressure is 136/84 with a pulse of 73, respirations of 19. She is afebrile. In general she appeared to be well developed, well nourished, in no acute distress. Skin color is normal. Skin is warm and dry. Lymph nodes are not enlarged. Head, ears, eyes, nose, mouth and throat were normal. Neck veins were not distended. Thyroid was not enlarged. CHEST: Clear. Cardiac exam is normal. Abdomen is soft and slightly protuberant. There is a large proximal umbilical hernia. Extremities are normal. Neurologically she is intact. IMPRESSION: 1. Periumbilical hernia. 2. Alcoholism. 3. Anemia. 4. Insulin-dependent diabetes mellitus. RECOMMENDATIONS: None. Her sugars will have to be watched in the perioperative period. MMODL / IJN: [id number] /
[2019-01-01] MEDS ORDERED: INSULIN DETEMIR (LEVEMIR) 100 UNIT/ML SYR SQ SCH (21:00)
[2019-01-01 23:27] VITALS: RESP 16
[2019-01-02] MEDS: HYDROcodone/APAP 5-325MG 1 EACH TAB PO PRN ×2 (02:52→10:05)
[2019-01-02] MEDS ORDERED: PANTOPRAZOLE 40 MG TABLET PO SCH (07:30)
[2019-01-02 07:46] VITALS: BP 110/68; PULSE 64; TEMP 98.1
[2019-01-02] MEDS: INSULIN ASPART (NovoLOG) 100 UNIT/ML VIAL SQ SCH ×4 (07:57→12:39)
[2019-01-02 07:58] LABS: Glucose,Whole Blood 71 mg/dL (75-99)
[2019-01-02] MEDS: ENOXAPARIN 40 MG/0.4 ML SYRINGE SQ SCH (08:00)
[2019-01-02] MEDS: FERROUS SULFATE 325 MG TAB PO SCH ×2 (08:00→12:37)
[2019-01-02] MEDS: HYDROmorphone 0.5 MG/0.5 ML SYRINGE IVP PRN (08:06)
--- NOTE | 2019-01-02 11:27 | P.DS ---
Providers Date of admission: 01/01/19 22:05 Expected date of discharge: 01/02/19 Attending physician: Juan A Maxwell Consults: 12/31/18 17:15 Consult Physician Routine Consulting Provider: Junior Moya Consult Reason/Comments: diabetes management Do you want consulting provider notified?: Yes Primary care physician: Rolo Poole [facility] Course: 53-year-old female who underwent open repair of incarcerated ventral hernia. Patient is doing well postoperatively without any immediate complications. Tolerating diet. Denies nausea or vomiting. Has been ambulating in the hallways. Pain is controlled. Vital signs are stable. She is stable for discharge home today with TRELL drain. Please see EMR for further hospital course details. Discharge diagnosis: 1. Status post open repair of incarcerated ventral hernia Nurse practitioner note has been reviewed by physician. Signing provider agrees with the documented findings, assessment, and plan of care. Plan - Discharge Summary Discharge Rx Participant: Yes New Discharge Prescriptions: New Hydrocodone/Acetaminophen [[place] 5-325] 2 tab PO Q6HR PRN 3 Days #24 tab PRN Reason: Pain No Action Ferrous Sulfate [Iron (65 MG Elemental)] 325 mg PO TID-W/MEALS #90 tab Pantoprazole [Protonix] 40 mg PO AC-BRKFST #30 tablet. INSULIN ASPART (NovoLOG) [NovoLOG (formulary)] 6 unit SQ TID #1 vial Insulin Detemir (Levemir) [Levemir] 15 unit SQ HS Discharge Medication List Ferrous Sulfate [Iron (65 MG Elemental)] 325 mg PO TID-W/MEALS #90 tab 12/10/18 [Rx] INSULIN ASPART (NovoLOG) [NovoLOG (formulary)] 6 unit SQ TID #1 vial 12/10/18 [Rx] Pantoprazole [Protonix] 40 mg PO AC-BRKFST #30 tablet. 12/10/18 [Rx] Insulin Detemir (Levemir) [Levemir] 15 unit SQ HS 12/28/18 [History] Hydrocodone/Acetaminophen [[place] 5-325] 2 tab PO Q6HR PRN 3 Days #24 tab 01/02/19 [Rx] Follow up Appointment(s)/Referral(s): Rolo Poole MD [Primary Care Provider] - 1 Week Juan A Maxwell MD [STAFF PHYSICIAN] - 01/08/19 2:40 pm Activity/Diet/Wound Care/Special Instructions: No driving while taking [place] No lifting over 10 pounds You may shower. No soaking or tub baths Very light activity until you are reevaluated at your follow up appointment with your surgeon
[2019-01-02 12:29] LABS: Glucose,Whole Blood 78 mg/dL (75-99)
--- NOTE | 2019-01-03 14:00 | PN ---
PROGRESS NOTE DATE OF SERVICE: 01/02/2019 CHIEF COMPLAINT: Status post ventral herniorrhaphy. HISTORY OF PRESENT ILLNESS: This lady is having some discomfort, but otherwise doing well. PHYSICAL EXAM: Her chest is clear. The cardiac exam is normal and dressing is dry. IMPRESSION: 1. Status post periumbilical herniorrhaphy. 2. Diabetes mellitus, type 2, insulin dependent. PLAN: Increase activity and possibly home today. MMODL / IJN: [id number] /
--- NOTE | 2019-01-16 08:41 | P.OP ---
Date of Procedure: 12/31/18 Preoperative Diagnosis: Incarcerated ventral hernia Postoperative Diagnosis: Incarcerated ventral hernia Procedure(s) Performed: (Repair of incarcerated ventral hernia with mesh Anesthesia: DOMINIC Surgeon: Juan A Maxwell Estimated Blood Loss (ml): 5 Pathology: other (Hernia sac) Condition: stable Disposition: PACU Description of Procedure: The patient's placed on the operative table in supine position. She received general anesthesia. Patient had a large incarcerated ventral hernia located just below her umbilicus. The skin was incised midline and then using blunt and sharp dissection with cautery the hernia sac was dissected from the subcutaneous tissue. Hernia sac was then opened. Patient small bowel within the hernia sac. The neck of the hernia was then opened and the small bowel reduced into the peritoneal cavity. The hernia sac was then transected using electrocautery and sent to pathology. The fascial defect was then closed using 0 Ethibond suture. A piece of Prolene mesh was placed over top the repair and secured with a secure strap tacker. A TRELL drains placed over top of the mesh and brought out through separate stab incision. Asaf's fascia was closed with 0 Vicryl. Skin was closed iraida. Patient top procedure well was sent to recovery room stable condition.
== END 2019-01-02 14:30 | disposition home or self-care (01) ==
LOC: OR 10:52 → 6PED 14:02 → OR 01-01 22:54
PROVIDERS: ADMIT Surgery; ATTEND Surgery
DX: K43.6 Other and unspecified ventral hernia with obstruction, without gangrene (principal); J44.9 Chronic obstructive pulmonary disease, unspecified; I50.9 Heart failure, unspecified; E11.9 Type 2 diabetes mellitus without complications; F10.20 Alcohol dependence, uncomplicated; K70.30 Alcoholic cirrhosis of liver without ascites; D64.9 Anemia, unspecified; K59.00 Constipation, unspecified; R41.3 Other amnesia; F17.210 Nicotine dependence, cigarettes, uncomplicated; Z79.4 Long term (current) use of insulin; Z79.899 Other long term (current) drug therapy; Z86.73 Personal history of transient ischemic attack (TIA), and cerebral infarction without residual deficits; Z83.3 Family history of diabetes mellitus; Z80.7 Family history of other malignant neoplasms of lymphoid, hematopoietic and related tissues; Z83.79 Family history of other diseases of the digestive system; Z84.1 Family history of disorders of kidney and ureter
CPT/HCPCS: 49561; 49568; 96372 ×2; 64488; 86900; 86901; 86850; 86870; 86880; 88302; G0378 ×2; C1781; J2250; J1644; J1100; J2710; J2405; J0690 ×2; J2001; J1650 ×2; J3010; J1885; J1170 ×4; J2795; J0330; J2704

== ENCOUNTER 2019-02-11 04:48 | Emergency (ER) | payer OTHER ==
--- NOTE | 2019-02-11 05:03 | ED ---
Abdominal Pain HPI - General Chief Complaint: Abdominal Pain Stated Complaint: Abdominal Pain Time Seen by Provider: 02/11/19 05:03 Source: patient Mode of arrival: wheelchair Limitations: no limitations - History of Present Illness Initial Comments: Mera is a 53 yo female who requested evaluation because she was already in the ER with her daughter. Mera reports that she had ventral hernia repair 5-6 weeks ago and has been doing well since, she states that she was told not to drive post op, but today her daughter was hours away and sick so she drove to get her and bring her home. Mera reports she was in the car for nearly 10 hours today. She states that since arriving in the ER with her daughter she feels lower abdominal pressure and discomfort. She has no N/V/D, no fever/chills. Her incision is healing well. She has not urinated since symptoms began. Patient also complains of right arm pain which began after surgery, she believes it is due to overexertion of her arm which is weakened from a previous stroke. She is concerned she may have broken her shoulder. - Related Data Home Medications Medication Instructions Recorded Confirmed Insulin Detemir (Levemir) [Levemir] 15 unit SQ HS 12/28/18 02/11/19 INSULIN ASPART (NovoLOG) [NovoLOG 6 unit SQ AC-TID 02/11/19 02/11/19 (formulary)] Previous Rx's Medication Instructions Recorded Ferrous Sulfate [Iron (65 MG 325 mg PO TID-W/MEALS #90 tab 12/10/18 Elemental)] Pantoprazole [Protonix] 40 mg PO AC-BRKFST #30 tablet. 12/10/18 Nitrofurantoin Monohyd/M-Cryst 100 mg PO Q12HR #10 cap 02/11/19 [Macrobid] Allergies Allergy/AdvReac Type Severity Reaction Status Date / Time No Known Allergies Allergy Verified 02/11/19 07:38 Review of Systems ROS Statement: Those systems with pertinent positive or pertinent negative responses have been documented in the HPI. ROS Other: All systems not noted in ROS Statement are negative. Past Medical History Past Medical History: Heart Failure, COPD, CVA/TIA, Diabetes Mellitus, Liver Disease, Memory Impairment Additional Past Medical History / Comment(s): 12/05/18 ADMISSION FOR Anemia AND HYPOGLYCEMIA. IDD. Constipation. Liver disease, alcholism. CVA 05/2018, NO RESIDUAL. History of Any Multi-Drug Resistant Organisms: None Reported Past Surgical History: Hernia Repair Additional Past Surgical History / Comment(s): ENDOSCOPIES, ventral hernia repair Past Anesthesia/Blood Transfusion Reactions: No Reported Reaction Additional Past Anesthesia/Blood Transfusion Reaction / Comment(s): Never had general anethesia. BLOOD TRANSFUSION ON 12/08/18 , NO REACTION. Past Psychological History: No Psychological Hx Reported Smoking Status: Current every day smoker Past Alcohol Use History: Abuse Past Drug Use History: Marijuana - Past Family History Sister(s) Family Medical History: Diabetes Mellitus Additional Family Medical History / Comment(s): liver disease in 1 sister, kidney disease in 1 sister, lymphoma General Exam Limitations: no limitations General appearance: alert, in no apparent distress Head exam: Present: atraumatic, normocephalic Eye exam: Present: PERRL ENT exam: Present: normal exam Neck exam: Present: normal inspection Respiratory exam: Absent: respiratory distress Cardiovascular Exam: Present: regular rate GI/Abdominal exam: Present: soft, normal bowel sounds, other (well healing midline surgical incision). Absent: distended, tenderness, guarding, rebound, rigid, organomegaly, mass, bruit, pulsatile mass, hernia Rectal exam: Present: deferred Extremities exam: Present: other (decreased ROM of right shoulder secondary to pain) Back exam: Present: full ROM Neurological exam: Present: alert, oriented X3 Skin exam: Present: warm, dry Course Vital Signs 02/11/19 02/11/19 04:57 08:12 Temperature 98.3 F 98.4 F Pulse Rate 95 91 Respiratory 20 16 Rate Blood Pressure 140/84 129/67 O2 Sat by Pulse 99 98 Oximetry Medical Decision Making - Medical Decision Making History and physical are unremarkable, patient being evaluated because she was here anyway Patient is post op, abdomen is non-acute Labs and xrays ordered Labs with leukopenia - patient states this is typical for her, labs otherwise unremarkable KUB with likely diarrheal disease - patient has been taking stool softeners UA concerning for UTI - likely cause of patiens lower abdominal discomfort Patient agreeable to plan for discharge home with PO macrobid - Lab Data Result diagrams: 02/11/19 06:30 02/11/19 06:30 Lab Results 02/11/19 02/11/19 02/11/19 Range/Units 06:30 06:30 06:30 WBC 3.3 L (3.8-10.6) k/uL RBC 4.29 (3.80-5.40) m/uL Hgb 11.9 (11.4-16.0) gm/dL Hct 37.0 (34.0-46.0) % MCV 86.2 D (80.0-100.0) fL MCH 27.7 (25.0-35.0) pg MCHC 32.2 (31.0-37.0) g/dL RDW 19.2 H (11.5-15.5) % Plt Count 108 L (150-450) k/uL Neutrophils % 47 % Lymphocytes % 37 % Monocytes % 8 % Eosinophils % 5 % Basophils % 1 % Neutrophils # 1.6 (1.3-7.7) k/uL Lymphocytes # 1.2 (1.0-4.8) k/uL Monocytes # 0.3 (0-1.0) k/uL Eosinophils # 0.2 (0-0.7) k/uL Basophils # 0.0 (0-0.2) k/uL Anisocytosis Slight Microcytosis Slight Sodium 143 (137-145) mmol/L Potassium 3.6 (3.5-5.1) mmol/L Chloride 109 H (98-107) mmol/L Carbon Dioxide 23 (22-30) mmol/L Anion Gap 11 mmol/L BUN 7 (7-17) mg/dL Creatinine 0.34 L (0.52-1.04) mg/dL Est GFR (CKD-EPI)AfAm >90 (>60 ml/min/1.73 sqM) Est GFR (CKD-EPI)NonAf >90 (>60 ml/min/1.73 sqM) Glucose 161 H (74-99) mg/dL Plasma Lactic Acid Leonard 1.8 (0.7-2.0) mmol/L Calcium 8.7 (8.4-10.2) mg/dL Total Bilirubin 0.9 (0.2-1.3) mg/dL AST 30 (14-36) U/L ALT 8 L (9-52) U/L Alkaline Phosphatase 90 (38-126) U/L Total Protein 7.6 (6.3-8.2) g/dL Albumin 4.1 (3.5-5.0) g/dL Lipase 248 (23-300) U/L Urine Color Urine Appearance (Clear) Urine pH (5.0-8.0) Ur Specific Herrick (1.001-1.035) Urine Protein (Negative) Urine Glucose (UA) (Negative) Urine Ketones (Negative) Urine Blood (Negative) Urine Nitrite (Negative) Urine Bilirubin (Negative) Urine Urobilinogen (<2.0) mg/dL Ur Leukocyte Esterase (Negative) Urine WBC (0-5) /hpf Ur Squamous Epith Cells (0-4) /hpf Urine Bacteria (None) /hpf Urine Mucus (None) /hpf 02/11/19 Range/Units 06:30 WBC (3.8-10.6) k/uL RBC (3.80-5.40) m/uL Hgb (11.4-16.0) gm/dL Hct (34.0-46.0) % MCV (80.0-100.0) fL MCH (25.0-35.0) pg MCHC (31.0-37.0) g/dL RDW (11.5-15.5) % Plt Count (150-450) k/uL Neutrophils % % Lymphocytes % % Monocytes % % Eosinophils % % Basophils % % Neutrophils # (1.3-7.7) k/uL Lymphocytes # (1.0-4.8) k/uL Monocytes # (0-1.0) k/uL Eosinophils # (0-0.7) k/uL Basophils # (0-0.2) k/uL Anisocytosis Microcytosis Sodium (137-145) mmol/L Potassium (3.5-5.1) mmol/L Chloride (98-107) mmol/L Carbon Dioxide (22-30) mmol/L Anion Gap mmol/L BUN (7-17) mg/dL Creatinine (0.52-1.04) mg/dL Est GFR (CKD-EPI)AfAm (>60 ml/min/1.73 sqM) Est GFR (CKD-EPI)NonAf (>60 ml/min/1.73 sqM) Glucose (74-99) mg/dL Plasma Lactic Acid Leonard (0.7-2.0) mmol/L Calcium (8.4-10.2) mg/dL Total Bilirubin (0.2-1.3) mg/dL AST (14-36) U/L ALT (9-52) U/L Alkaline Phosphatase (38-126) U/L Total Protein (6.3-8.2) g/dL Albumin (3.5-5.0) g/dL Lipase (23-300) U/L Urine Color Yellow Urine Appearance Cloudy H (Clear) Urine pH 6.0 (5.0-8.0) Ur Specific Herrick 1.017 (1.001-1.035) Urine Protein Trace H (Negative) Urine Glucose (UA) Negative (Negative) Urine Ketones Negative (Negative) Urine Blood Negative (Negative) Urine Nitrite Positive H (Negative) Urine Bilirubin Negative (Negative) Urine Urobilinogen <2.0 (<2.0) mg/dL Ur Leukocyte Esterase Trace H (Negative) Urine WBC 5 (0-5) /hpf Ur Squamous Epith Cells 5 H (0-4) /hpf Urine Bacteria Moderate H (None) /hpf Urine Mucus Moderate H (None) /hpf Disposition Clinical Impression: UTI (urinary tract infection) Disposition: HOME SELF-CARE Condition: Stable Instructions (If sedation given, give patient instructions): Urinary Tract Infection in Women (DC) Prescriptions: Nitrofurantoin Monohyd/M-Cryst [Macrobid] 100 mg PO Q12HR #10 cap Is patient prescribed a controlled substance at d/c from ED?: No Referrals: Junior Moya MD [Primary Care Provider] - 1-2 days
[2019-02-11] MEDS ORDERED: SODIUM CHLORIDE 0.9% 1,000 ML IV STA (05:40)
--- NOTE | 2019-02-11 06:44 | XR ---
EXAM: XR Abdomen, 1 View CLINICAL HISTORY: ITS.REASON XR Reason: abdominal pain TECHNIQUE: Frontal supine view of the abdomen/pelvis. COMPARISON: 12/05/18. FINDINGS: Intraperitoneal space: No gross free air. Gastrointestinal tract: Scattered air-fluid levels, query enteritis or diarrheal disease. Bones/joints: Stable. IMPRESSION: Scattered air-fluid levels, query enteritis or diarrheal disease.
--- NOTE | 2019-02-11 06:45 | XR ---
EXAM: XR Right Shoulder Complete, 2 or More Views CLINICAL HISTORY: ITS.REASON XR Reason: Pain TECHNIQUE: Two or more views of the right shoulder. COMPARISON: No relevant prior studies available. FINDINGS: Bones/joints: No acute fracture or dislocation. Soft tissues: No radiopaque foreign body. IMPRESSION: No acute fracture or dislocation.
[2019-02-11 06:58] LABS: ALT 8 U/L (9-52); AST 30 U/L (14-36); African American GFR (CKD) >90 (>60 ml/min/1.73 sqM); Albumin 4.1 g/dL (3.5-5.0); Alkaline Phosphatase 90 U/L (38-126); Anion Gap 11 mmol/L; Blood Urea Nitrogen 7 mg/dL (7-17); Calcium 8.7 mg/dL (8.4-10.2); Carbon Dioxide 23 mmol/L (22-30); Chloride 109 mmol/L (98-107); Glucose 161 mg/dL (74-99); Lipase 248 U/L (23-300); Sodium 143 mmol/L (137-145); Total Bilirubin 0.9 mg/dL (0.2-1.3); Total Protein 7.6 g/dL (6.3-8.2)
[2019-02-11 07:10] LABS: Potassium 3.6 mmol/L (3.5-5.1)
[2019-02-11 07:11] LABS: Appearance,Urine Cloudy (Clear); Bacteria,Urine Moderate /hpf; Bilirubin,Urine Negative (Negative); Blood,Urine Negative (Negative); Color,Urine Yellow; Glucose,Urine (UA) Negative (Negative); Ketones,Urine Negative (Negative); Leukocyte Esterase,Urine Trace (Negative); Mucus,Urine Moderate /hpf; Nitrite,Urine Positive (Negative); Protein,Urine Trace (Negative); Specific Gravity,Urine 1.017 (1.001-1.035); Squamous Epithelial Cell,Urine 5 /hpf (0-4); Urobilinogen,Urine <2.0 mg/dL (<2.0); WBC,Urine 5 /hpf (0-5)
[2019-02-11 07:12] LABS: Anisocytosis Slight; Basophils % (A) 1 %; Eosinophils # (A) 0.2 k/uL (0-0.7); Eosinophils % (A) 5 %; HGB 11.9 gm/dL (11.4-16.0); Lymphocytes # (A) 1.2 k/uL (1.0-4.8); Lymphocytes % (A) 37 %; MCH 27.7 pg (25.0-35.0); MCHC 32.2 g/dL (31.0-37.0); Mean Platelet Volume 7.3; Microcytosis Slight; Monocytes # (A) 0.3 k/uL (0-1.0); Monocytes % (A) 8 %; Neutrophils # (A) 1.6 k/uL (1.3-7.7); Neutrophils % (A) 47 %; Platelet Count 108 k/uL (150-450); RBC 4.29 m/uL (3.80-5.40); RDW 19.2 % (11.5-15.5); WBC 3.3 k/uL (3.8-10.6)
[2019-02-11 07:13] LABS: MCV 86.2 fL (80.0-100.0)
[2019-02-11 08:13] VITALS: BP 129/67; PULSE 91; RESP 16; TEMP 98.4
== END 2019-02-11 08:13 | disposition home or self-care (01) ==
LOC: EC 04:48
DX: N39.0 Urinary tract infection, site not specified (principal); D72.819 Decreased white blood cell count, unspecified; M79.601 Pain in right arm; E11.9 Type 2 diabetes mellitus without complications; F17.200 Nicotine dependence, unspecified, uncomplicated; Z86.73 Personal history of transient ischemic attack (TIA), and cerebral infarction without residual deficits; Z87.19 Personal history of other diseases of the digestive system; Z98.890 Other specified postprocedural states; Z79.4 Long term (current) use of insulin
CPT/HCPCS: 36415; 74018; 80053; 81001; 83605; 83690; 85025; 96360; 99284

== ENCOUNTER 2020-01-09 14:05 | Inpatient (IN) | payer OTHER ==
[2020-01-09] MEDS ORDERED: SODIUM CHLORIDE 0.9% 500 ML 500 ML IV STA (14:44)
--- NOTE | 2020-01-09 14:56 | ED ---
Abdominal Pain HPI <William Owen - Last Filed: 01/09/20 18:05> - General Source: patient Mode of arrival: wheelchair Limitations: physical limitation <Mitra Klein - Last Filed: 01/09/20 19:24> - General Chief Complaint: Abdominal Pain Stated Complaint: stomach/arm pain Time Seen by Provider: 01/09/20 14:19 - History of Present Illness Initial Comments: Patient is a 54-year-old female presenting to the emergency Department with complaints of abdominal pain and distention for a few weeks now. Patient does admit to being an alcoholic, drinks a pint of whiskey a day. No drinking today. Patient states for the last week she has been noticing that her belly is very distended and painful. Patient states she has not had a bowel movement in 5 days. She is also noticing what looks like blood in her urine. She denies any dysuria or increased in frequency. She states she has been nauseous, no vomiting or diarrhea. She denies any chest pain, shortness of breath. She denies recent fever or chills. She states she has not had a follow-up with her PCP in many years. She is also complaining of right shoulder pain for 1 year. Patient did have an x-ray on the shoulder about 6 months ago without any significant findings. She has not followed up regarding her shoulder pain. She has not fallen the shoulder since. Patient denies any other complaints at this time. (Mitra Klein) - Related Data Home Medications Medication Instructions Recorded Confirmed Polyethylene Glycol 3350 [Miralax] 17 gm PO DAILY PRN 01/09/20 01/09/20 Allergies Allergy/AdvReac Type Severity Reaction Status Date / Time No Known Allergies Allergy Verified 01/09/20 19:16 Review of Systems ROS Other: All systems not noted in ROS Statement are negative. <William Owen - Last Filed: 01/09/20 18:05> ROS Other: All systems not noted in ROS Statement are negative. <Mitra Klein - Last Filed: 01/09/20 19:24> ROS Statement: Those systems with pertinent positive or pertinent negative responses have been documented in the HPI. Past Medical History Past Medical History: Heart Failure, COPD, CVA/TIA, Diabetes Mellitus, Liver Disease, Memory Impairment Additional Past Medical History / Comment(s): 12/05/18 ADMISSION FOR Anemia AND HYPOGLYCEMIA. IDD. Constipation. Liver disease, alcholism. CVA 05/2018, NO RESIDUAL. History of Any Multi-Drug Resistant Organisms: None Reported Past Surgical History: Hernia Repair Additional Past Surgical History / Comment(s): ENDOSCOPIES, ventral hernia repair Past Anesthesia/Blood Transfusion Reactions: No Reported Reaction Additional Past Anesthesia/Blood Transfusion Reaction / Comment(s): Never had general anethesia. BLOOD TRANSFUSION ON 12/08/18 , NO REACTION. Past Psychological History: No Psychological Hx Reported Smoking Status: Current every day smoker Past Alcohol Use History: Abuse Past Drug Use History: Marijuana - Past Family History Sister(s) Family Medical History: Diabetes Mellitus Additional Family Medical History / Comment(s): liver disease in 1 sister, kidney disease in 1 sister, lymphoma <Mitra Klein - Last Filed: 01/09/20 19:24> General Exam Limitations: physical limitation <Mitra Klein - Last Filed: 01/09/20 19:24> - General Exam Comments Initial Comments: GENERAL: Patient appears fatigued, and mild distress secondary to pain. HEAD: Atraumatic, normocephalic. EYES: Pupils equal round and reactive to light, extraocular movements intact, bilateral sclera mild incteris, conjunctiva are normal. ENT: TMs normal, nares patent, oropharynx clear without exudates. Moist mucous membranes. NECK: Normal range of motion, supple without lymphadenopathy or JVD. LUNGS: Breath sounds clear to auscultation bilaterally and equal. No wheezes rales or rhonchi. HEART: Regular rate and rhythm without murmurs, rubs or gallops. ABDOMEN: Abdomen is distended, generalized abdominal pain with palpation. Normal active bowel sounds. : Deferred EXTREMITIES: Normal range of motion, no pitting or edema. No clubbing or cyanosis. NEUROLOGICAL: Cranial nerves II through XII grossly intact. Normal speech, normal gait. PSYCH: Normal mood, normal affect. SKIN: Warm, Dry, normal turgor, no rashes or lesions noted. (Mitra Klein) Course <William Owen - Last Filed: 01/09/20 18:05> Vital Signs 01/09/20 14:11 Temperature 98.3 F Pulse Rate 101 H Respiratory 18 Rate Blood Pressure 131/70 O2 Sat by Pulse 100 Oximetry - Reevaluation(s) Reevaluation #1: 01/09/20 18:06 PA supervision: I personally evaluate this case patient will be admitted she has a history of alcoholism ascites and urinary tract infection. The case is discussed with Dr. Pardo's group. (William Owen) Medical Decision Making - Lab Data Result diagrams: 01/09/20 15:07 01/09/20 15:07 <William Owen - Last Filed: 01/09/20 18:05> - Lab Data Result diagrams: 01/09/20 15:07 01/09/20 15:07 <Mitra Klein - Last Filed: 01/09/20 19:24> - Medical Decision Making Patient is a 54-year-old female here for abdominal distention and pain times one to 2 weeks. Alcoholic, drinks a pint of whiskey a day, no drinking today. Vital signs are stable upon arrival. Exam reveals significant abdominal distention and pain with palpation. PT is 13.4, INR is 1.3, bilirubin is 3.4, slight elevation in liver enzymes. Lipase is normal. Urine does show significant UTI with positive nitrate. Serum alcohol is normal. CT of the abdomen shows significant ascites, some mild inflammatory changes near the ascending colon, and a few punctate nodularities within the bilateral lung bases, recommend follow-up chest CT. she received fluids and pain control and still seems very uncomfortable. One dose of Rocephin was also given. I discuss ed case with Dr. Rios who agrees with admission for ascites, abdominal pain, UTI. GI will also be consulted. Patient is agreement with this plan. Case discussed with Dr. Owen. (Mitra Klein) - Lab Data Lab Results 01/09/20 01/09/20 01/09/20 Range/Units 15:07 15:07 15:07 WBC 3.4 L (3.8-10.6) k/uL RBC 3.76 L (3.80-5.40) m/uL Hgb 13.0 (11.4-16.0) gm/dL Hct 39.2 (34.0-46.0) % MCV 104.2 H (80.0-100.0) fL MCH 34.7 (25.0-35.0) pg MCHC 33.3 (31.0-37.0) g/dL RDW 14.5 (11.5-15.5) % Plt Count 121 L (150-450) k/uL Neutrophils % (Manual) 67 % Band Neutrophils % 3 % Lymphocytes % (Manual) 22 % Monocytes % (Manual) 8 % Neutrophils # (Manual) 2.30 (1.3-7.7) k/uL Lymphocytes # (Manual) 0.75 L (1.0-4.8) k/uL Monocytes # (Manual) 0.27 (0-1.0) k/uL Nucleated RBCs 0 (0-0) /100 WBC Manual Slide Review Performed Reactive Lymphocytes Present Polychromasia Present Macrocytosis Slight PT 13.4 H (9.0-12.0) sec INR 1.3 H (<1.2) APTT 26.2 (22.0-30.0) sec Sodium 134 L (137-145) mmol/L Potassium 3.6 (3.5-5.1) mmol/L Chloride 101 (98-107) mmol/L Carbon Dioxide 25 (22-30) mmol/L Anion Gap 8 mmol/L BUN 11 (7-17) mg/dL Creatinine 0.48 L (0.52-1.04) mg/dL Est GFR (CKD-EPI)AfAm >90 (>60 ml/min/1.73 sqM) Est GFR (CKD-EPI)NonAf >90 (>60 ml/min/1.73 sqM) Glucose 111 H (74-99) mg/dL Plasma Lactic Acid Leonard (0.7-2.0) mmol/L Calcium 8.4 (8.4-10.2) mg/dL Magnesium 1.6 (1.6-2.3) mg/dL Total Bilirubin 3.4 H (0.2-1.3) mg/dL AST 113 H (14-36) U/L ALT 35 H (4-34) U/L Alkaline Phosphatase 114 (38-126) U/L Total Protein 7.1 (6.3-8.2) g/dL Albumin 3.0 L (3.5-5.0) g/dL Amylase 51 (30-110) U/L Lipase 129 (23-300) U/L Urine Color Urine Appearance (Clear) Urine pH (5.0-8.0) Ur Specific [place] (1.001-1.035) Urine Protein (Negative) Urine Glucose (UA) (Negative) Urine Ketones (Negative) Urine Blood (Negative) Urine Nitrite (Negative) Urine Bilirubin (Negative) Urine Urobilinogen (<2.0) mg/dL Ur Leukocyte Esterase (Negative) Urine RBC (0-5) /hpf Urine WBC (0-5) /hpf Urine WBC Clumps (None) /hpf Ur Squamous Epith Cells (0-4) /hpf Urine Bacteria (None) /hpf Hyaline Casts (0-2) /lpf Urine Mucus (None) /hpf Serum Alcohol <10 mg/dL 01/09/20 01/09/20 Range/Units 15:07 15:35 WBC (3.8-10.6) k/uL RBC (3.80-5.40) m/uL Hgb (11.4-16.0) gm/dL Hct (34.0-46.0) % MCV (80.0-100.0) fL MCH (25.0-35.0) pg MCHC (31.0-37.0) g/dL RDW (11.5-15.5) % Plt Count (150-450) k/uL Neutrophils % (Manual) % Band Neutrophils % % Lymphocytes % (Manual) % Monocytes % (Manual) % Neutrophils # (Manual) (1.3-7.7) k/uL Lymphocytes # (Manual) (1.0-4.8) k/uL Monocytes # (Manual) (0-1.0) k/uL Nucleated RBCs (0-0) /100 WBC Manual Slide Review Reactive Lymphocytes Polychromasia Macrocytosis PT (9.0-12.0) sec INR (<1.2) APTT (22.0-30.0) sec Sodium (137-145) mmol/L Potassium (3.5-5.1) mmol/L Chloride (98-107) mmol/L Carbon Dioxide (22-30) mmol/L Anion Gap mmol/L BUN (7-17) mg/dL Creatinine (0.52-1.04) mg/dL Est GFR (CKD-EPI)AfAm (>60 ml/min/1.73 sqM) Est GFR (CKD-EPI)NonAf (>60 ml/min/1.73 sqM) Glucose (74-99) mg/dL Plasma Lactic Acid Leonard 1.4 (0.7-2.0) mmol/L Calcium (8.4-10.2) mg/dL Magnesium (1.6-2.3) mg/dL Total Bilirubin (0.2-1.3) mg/dL AST (14-36) U/L ALT (4-34) U/L Alkaline Phosphatase (38-126) U/L Total Protein (6.3-8.2) g/dL Albumin (3.5-5.0) g/dL Amylase (30-110) U/L Lipase (23-300) U/L Urine Color Light Brown Urine Appearance Cloudy H (Clear) Urine pH 6.0 (5.0-8.0) Ur Specific [place] 1.027 (1.001-1.035) Urine Protein 1+ H (Negative) Urine Glucose (UA) Negative (Negative) Urine Ketones Negative (Negative) Urine Blood Small H (Negative) Urine Nitrite Positive H (Negative) Urine Bilirubin 1+ H (Negative) Urine Urobilinogen 6.0 (<2.0) mg/dL Ur Leukocyte Esterase Large H (Negative) Urine RBC 8 H (0-5) /hpf Urine WBC >182 H (0-5) /hpf Urine WBC Clumps Rare H (None) /hpf Ur Squamous Epith Cells 23 H (0-4) /hpf Urine Bacteria Occasional H (None) /hpf Hyaline Casts 27 H (0-2) /lpf Urine Mucus Many H (None) /hpf Serum Alcohol mg/dL Disposition <William Owen - Last Filed: 01/09/20 18:05> Is patient prescribed a controlled substance at d/c from ED?: No Decision Date: 01/09/20 Decision Time: 18:20 <Mitra Klein - Last Filed: 01/09/20 19:24> Clinical Impression: Abdominal pain, Ascites, UTI (urinary tract infection), H/O ETOH abuse Disposition: ADMITTED IP TO THIS HOSP Condition: Good
[2020-01-09] MEDS ORDERED: MORPHINE SULFATE 4 MG/ML SYRINGE IVP STA (15:20)
[2020-01-09 15:34] LABS: ALT 35 U/L (4-34); AST 113 U/L (14-36); African American GFR (CKD) >90 (>60 ml/min/1.73 sqM); Alcohol <10 mg/dL; Alkaline Phosphatase 114 U/L (38-126); Amylase 51 U/L (30-110); Anion Gap 8 mmol/L; Blood Urea Nitrogen 11 mg/dL (7-17); Calcium 8.4 mg/dL (8.4-10.2); Carbon Dioxide 25 mmol/L (22-30); Chloride 101 mmol/L (98-107); Glucose 111 mg/dL (74-99); Magnesium 1.6 mg/dL (1.6-2.3); Non-African American GFR(CKD) >90 (>60 ml/min/1.73 sqM); Potassium 3.6 mmol/L (3.5-5.1); Sodium 134 mmol/L (137-145); Total Bilirubin 3.4 mg/dL (0.2-1.3); Total Protein 7.1 g/dL (6.3-8.2)
[2020-01-09 15:39] LABS: HCT 39.2 % (34.0-46.0); MCH 34.7 pg (25.0-35.0); MCHC 33.3 g/dL (31.0-37.0); MCV 104.2 fL (80.0-100.0); Macrocytosis Slight; Mean Platelet Volume 8.7; Platelet Count 121 k/uL (150-450); RBC 3.76 m/uL (3.80-5.40); RDW 14.5 % (11.5-15.5); WBC 3.4 k/uL (3.8-10.6)
[2020-01-09 15:42] LABS: INR 1.3 (<1.2); Partial Thromboplastin Time 26.2 sec (22.0-30.0); Prothrombin Time 13.4 sec (9.0-12.0)
[2020-01-09 15:53] LABS: Band Neutrophils % 3 %; Lymphocytes # (M) 0.75 k/uL (1.0-4.8); Monocytes # (M) 0.27 k/uL (0-1.0); Neutrophils % (M) 67 %; Nucleated Red Blood Cells 0 /100 WBC (0-0); Polychromasia Present; Reactive Lymphocytes Present; Total Cells Counted 100
[2020-01-09 15:55] LABS: Appearance,Urine Cloudy (Clear); Bacteria,Urine Occasional /hpf; Bilirubin,Urine 1+ (Negative); Blood,Urine Small (Negative); Color,Urine Light Brown; Glucose,Urine (UA) Negative (Negative); Hyaline Casts,Urine 27 /lpf (0-2); Ketones,Urine Negative (Negative); Leukocyte Esterase,Urine Large (Negative); Mucus,Urine Many /hpf; Nitrite,Urine Positive (Negative); Protein,Urine 1+ (Negative); RBC,Urine 8 /hpf (0-5); Specific Gravity,Urine 1.027 (1.001-1.035); Squamous Epithelial Cell,Urine 23 /hpf (0-4); WBC,Urine >182 /hpf (0-5)
--- NOTE | 2020-01-09 17:07 | CT ---
EXAMINATION TYPE: CT abdomen pelvis w con DATE OF EXAM: 01/09/2020 COMPARISON: 12/06/2018 INDICATION: Abdominal pain and distention. DLP: 1282.4 mGycm, Automated exposure control for dose reduction was used. CONTRAST: 100 mL of Isovue 300. Study performed without Oral Contrast TECHNIQUE: Axial images were obtained from above the diaphragm to the pubic rami in the axial plane a t 5 mm thick sections. Reconstructed images are reviewed on the computer in the coronal plane. FINDINGS: Limited CT sections are obtained the lung bases. There is a punctate nodularity in the posterior lat eral left lung. Series 201 image 9 a punctate nodularity may be within the right middle lobe on the i nitial image. Series 201 image 1. Some pneumonitis changes in the posterior left lung base. Consider follow-up CT chest when the patient is stable. CT ABDOMEN: Moderate ascites is present throughout the abdomen including surrounding the liver spleen within the paracolic gutters and within the mesentery. This extends into the pelvis. Liver: Moderate fatty infiltration is within the liver. Spleen: Normal Pancreas: Normal Adrenal glands: The adrenal glands are normal. Gallbladder: Normal Kidneys: No masses are evident. No hydronephrosis is present. No cysts are present. Delayed images were obtained through the kidneys, which remain unremarkable. Aorta: Vascular calcification is within the aorta. Inferior vena cava: Normal. CT PELVIS: May be some inflammatory changes in the ascending colon near the hepatic flexure. Underlying abnormal ity is not otherwise identified. No obstruction is evident. Consider some colitis. A few diverticuli are within the redundant sigmoid colon. Small bowel loops appear unremarkable. Bowel loops are somewh at limited lacking oral contrast. Appendix: Not identified. No suspicious inflammatory changes in the right lower quadrant to suggest a cute appendicitis is identified. Urinary bladder: Decompressed with limited evaluation Genitourinary structures: Uterus appears unremarkable. Adnexal regions are clear. Osseous structures: No suspicious lytic or sclerotic lesions. IMPRESSIONS: 1. Ascites. 2. Some mild inflammatory changes may be near the ascending colon at the hepatic flexure. Correlate f or colitis. Diverticulitis is not identified. 3. A few punctate nodularities within the bilateral lung bases. Follow-up CT chest the patient is sta ble compared performed.
[2020-01-09] MEDS ORDERED: ONDANSETRON 4 MG/2 ML VIAL IVP PRN (18:16)
[2020-01-09] MEDS ORDERED: NALOXONE 0.4 MG/ML 1 ML VIAL IV PRN (18:16)
[2020-01-09] MEDS ORDERED: THIAMINE 100 MG/ML 2 ML VIAL IM STA (18:19)
[2020-01-09] MEDS ORDERED: LORazepam 2 MG/ML INJ IV PRN ×3 (18:19)
[2020-01-09] MEDS: MORPHINE SULFATE 4 MG/ML SYRINGE IV PRN ×2 (19:24→23:27)
[2020-01-09] MEDS: SODIUM CHLORIDE 0.9% 1,000 ML IV SCH (19:28)
[2020-01-10] MEDS: THIAMINE 100 MG TAB PO SCH ×2 (08:00→17:21)
[2020-01-10] MEDS: NICOTINE 14MG/24HR PATCH TRANSDERM SCH (08:00)
--- NOTE | 2020-01-10 08:15 | P.HPIM ---
History of Present Illness This is a pleasant 54 years old female with past medical history of heart failure, COPD, CVA/TIA, diabetes mellitus, alcoholic liver disease, cigarette smoker, alcohol abuse. She is a patient of Dr. Poole. Patient basically presen ts because of abdominal distention over 5-6 days, associated with periumbilical abdominal pain about it/10, coming down to 4/10 with pain medication, ferrous like something clumping or stomach, associated with nausea and vomiting a few times, she had no bowel movement for the last 5 days with decreased appetite. She is passing gases. Patient also reports recurrent falls over 2 years, the last one was about 2 weeks ago She denies dysuria or change in frequency of urination. She is aware of her diagnosis of her liver cirrhosis, patient also informed about her lung nodules. Patient is counseled extensively to quit drinking and smoking and she agrees. She smokes about half pack per day and she is on nicotine patch currently, she drinks about 1.0 pint of whiskey every day, no illicit drugs She denies depression or suicidal ideation She has also grade 2018 with right upper extremity weakness with limitation of movement in her right shoulder with pain. Vitals are stable. Labs showing WBC of 3.4K, hemoglobin 13, platelets 121, which is at baseline. INR 1.3. Sodium 134, potassium 3.6, creatinine 0.4, liver enzymes slightly elevated at 113 AST and 35 ALT, bilirubin is elevated at 3.4, magnesium 1.6, ammonia 21, lipase 129 which is normal. UA is suspicious of infection. Alcohol level less than 10. CT of the abdomen and pelvis with contrast in the emergency room showing left pulmonary nodularity, moderate ascites with mild inflammatory changes near the ascending, suspicious for colitis, no diverticulitis per radiologist In the emergency room she got 500 mL of normal saline boluses, given Rocephin and started on CIWA protocol and saline GI team has been consulted from emergency room Review of Systems CONSTITUTIONAL: No fever, no malaise, no fatigue. HEENT: No recent visual problems or hearing problems. Denied any sore throat. CARDIOVASCULAR: No orthopnea, PND, no palpitations, no syncope. PULMONARY: No shortness of breath, no cough, no hemoptysis. GASTROINTESTINAL: No diarrhea, , Normoactive bowel sounds. NEUROLOGICAL: No headaches, no numbness. HEMATOLOGICAL: Denies any bleeding or petechiae. GENITOURINARY: Denies any burning micturition, frequency, or urgency. MUSCULOSKELETAL/RHEUMATOLOGICAL: Denies any joint pain, swelling, or any muscle pain. ENDOCRINE: Denies any polyuria or polydipsia. Past Medical History Past Medical History: Heart Failure, COPD, CVA/TIA, Diabetes Mellitus, Liver Disease, Memory Impairment Additional Past Medical History / Comment(s): 12/05/18 ADMISSION FOR Anemia AND HYPOGLYCEMIA. IDD. Constipation. Liver disease, alcholism. CVA 05/2018, NO RESIDUAL. History of Any Multi-Drug Resistant Organisms: None Reported Past Surgical History: Hernia Repair Additional Past Surgical History / Comment(s): ENDOSCOPIES, ventral hernia repair Past Anesthesia/Blood Transfusion Reactions: No Reported Reaction Additional Past Anesthesia/Blood Transfusion Reaction / Comment(s): Never had general anethesia. BLOOD TRANSFUSION ON 12/08/18 , NO REACTION. Past Psychological History: No Psychological Hx Reported Smoking Status: Current every day smoker Past Alcohol Use History: Abuse Past Drug Use History: Marijuana - Past Family History Sister(s) Family Medical History: Diabetes Mellitus Additional Family Medical History / Comment(s): liver disease in 1 sister, kidney disease in 1 sister, lymphoma Medications and Allergies Home Medications Medication Instructions Recorded Confirmed Type Polyethylene Glycol 3350 [Miralax] 17 gm PO DAILY PRN 01/09/20 01/09/20 History Allergies Allergy/AdvReac Type Severity Reaction Status Date / Time No Known Allergies Allergy Verified 01/09/20 19:16 Physical Exam Vitals: Vital Signs Temp Pulse Pulse Resp BP BP Pulse Ox 01/10/20 05:00 98.2 F 83 18 112/62 98 01/10/20 00:00 91 16 01/09/20 19:50 98.3 F 91 16 126/77 99 01/09/20 19:35 98.6 F 90 20 117/80 98 01/09/20 18:00 91 16 115/77 98 01/09/20 17:00 88 18 120/77 98 01/09/20 14:11 98.3 F 101 H 18 131/70 100 Intake and Output 01/09/20 01/10/20 01/10/20 22:59 06:59 14:59 Intake Total 120 Balance 120 Intake: Intake, IV Titration 120 Amount Sodium Chloride 0.9% 1, 120 000 ml @ 60 mls/hr IV . [id number] PRACHI Rx#:[id number] Other: Voiding Method Toilet # Voids 1 Weight 68.039 kg GENERAL: The patient is alert and oriented x3, not in any acute distress. Well developed, well nourished. HEENT: Pupils are round and equally reacting to light. EOMI. No scleral icterus. No conjunctival pallor. Normocephalic, atraumatic. No pharyngeal erythema. No thyromegaly. CARDIOVASCULAR: S1 and S2 present. No murmurs, rubs, or gallops. PULMONARY: Chest is clear to auscultation, no wheezing or crackles. -ABDOMEN: Soft,normoactive bowel sounds. No palpable organomegaly. Abdominal distended and central abdominal tenderness with no rebound tenderness MUSCULOSKELETAL: No joint swelling or deformity. EXTREMITIES: No cyanosis, clubbing, or pedal edema. -NEUROLOGICAL: Gross neurological examination did not reveal any focal deficits. Right upper extremity weakness and limitation of movement at the right shoulder SKIN: No rashes. No petechiae Results CBC & Chem 7: 01/09/20 15:07 01/09/20 15:07 Labs: Abnormal Lab Results - Last 24 Hours (Table) 01/09/20 01/09/20 01/09/20 Range/Units 15:07 15:07 15:07 WBC 3.4 L (3.8-10.6) k/uL RBC 3.76 L (3.80-5.40) m/uL MCV 104.2 H (80.0-100.0) fL Plt Count 121 L (150-450) k/uL Lymphocytes # (Manual) 0.75 L (1.0-4.8) k/uL PT 13.4 H (9.0-12.0) sec INR 1.3 H (<1.2) Sodium 134 L (137-145) mmol/L Creatinine 0.48 L (0.52-1.04) mg/dL Glucose 111 H (74-99) mg/dL Total Bilirubin 3.4 H (0.2-1.3) mg/dL AST 113 H (14-36) U/L ALT 35 H (4-34) U/L Albumin 3.0 L (3.5-5.0) g/dL Urine Appearance (Clear) Urine Protein (Negative) Urine Blood (Negative) Urine Nitrite (Negative) Urine Bilirubin (Negative) Ur Leukocyte Esterase (Negative) Urine RBC (0-5) /hpf Urine WBC (0-5) /hpf Urine WBC Clumps (None) /hpf Ur Squamous Epith Cells (0-4) /hpf Urine Bacteria (None) /hpf Hyaline Casts (0-2) /lpf Urine Mucus (None) /hpf 01/09/20 Range/Units 15:35 WBC (3.8-10.6) k/uL RBC (3.80-5.40) m/uL MCV (80.0-100.0) fL Plt Count (150-450) k/uL Lymphocytes # (Manual) (1.0-4.8) k/uL PT (9.0-12.0) sec INR (<1.2) Sodium (137-145) mmol/L Creatinine (0.52-1.04) mg/dL Glucose (74-99) mg/dL Total Bilirubin (0.2-1.3) mg/dL AST (14-36) U/L ALT (4-34) U/L Albumin (3.5-5.0) g/dL Urine Appearance Cloudy H (Clear) Urine Protein 1+ H (Negative) Urine Blood Small H (Negative) Urine Nitrite Positive H (Negative) Urine Bilirubin 1+ H (Negative) Ur Leukocyte Esterase Large H (Negative) Urine RBC 8 H (0-5) /hpf Urine WBC >182 H (0-5) /hpf Urine WBC Clumps Rare H (None) /hpf Ur Squamous Epith Cells 23 H (0-4) /hpf Urine Bacteria Occasional H (None) /hpf Hyaline Casts 27 H (0-2) /lpf Urine Mucus Many H (None) /hpf Microbiology - Last 24 Hours (Table) 01/09/20 15:35 Urine Culture - Preliminary Urine,Voided Thrombosis Risk Factor Assmnt - Choose All That Apply Any of the Below Risk Factors Present?: Yes Each Factor Represents 1 point: Abnormal pulmonary function (COPD), Age 41-60 years, Obesity (BMI >25) Other Risk Factors: No Other congenital or acquired thrombophilia - If yes, enter type in comment: No Thrombosis Risk Factor Assessment Total Risk Factor Score: 3 Thrombosis Risk Factor Assessment Level: Moderate Risk Assessment and Plan Assessment: Ascending colitis Also will Acute urinary tract infection Elevated liver enzymes and bilirubin, could be secondary to alcoholic liver disease. Check liver ultrasound alcoholic liver cirrhosis with ascites Lung nodules, patient instructed for follow-up with pulmonary service. Diabetes mellitus Alcohol abuse, atherosclerotic of alcohol withdrawal Nicotine dependence Thrombocytopenia, chronic Chronic right shoulder pain History of CVA/TIA COPD, not in acute exacerbation Cardiac heart failure, unknown ejection fraction Plan: This is A pleasant 54 years old female who presents with colitis, ascites, possible UTI with continue with antibiotic of ceftriaxone, GI consult. Patient was instructed to follow up with her doctor for pulmonary nodule, risks including but not limited to cancer are explained and she understands. The patient on insulin sliding scale. Consult IR for paracentesis and send fluid for cytology, WBC and culture. Start Lasix and Aldactone, Continue with CIWA and same and monitor for alcohol withdrawal and DT Labs and medication were reviewed.. Continue same treatment. Continue with symptomatic treatment. Resume home medication. Monitor lytes and vitals. DVT and GI prophylaxis. Further recommendations of the clinical course of the patient DVT prophylaxis: Subcutaneous heparin GI Prophylaxis: Ppi
[2020-01-10] MEDS: SPIRONOLACTONE 25 MG TAB PO SCH (11:45)
[2020-01-10] MEDS: PANTOPRAZOLE 40 MG TABLET PO SCH (11:46)
[2020-01-10] MEDS: SODIUM CHLORIDE 0.9% 1,000 ML IV SCH (11:55)
[2020-01-10 11:56] LABS: Glucose,Whole Blood 106 mg/dL (75-99)
[2020-01-10] MEDS: MORPHINE SULFATE 4 MG/ML SYRINGE IV PRN ×2 (12:45→23:14)
--- NOTE | 2020-01-10 14:20 | P.PCN ---
Date of Procedure: 01/10/20 Preoperative Diagnosis: ascites Procedure(s) Performed: paracentesis Anesthesia: local Estimated Blood Loss (ml): 0 Pathology: other (serous fluid sent 60 cc) Disposition: no change
[2020-01-10 15:38] LABS: Appearance,BF Clear; Color,BF Yellow; Nucleated Cells, Body Fluid 4 /uL; RBC, Body Fluid 19 /uL
[2020-01-10 17:10] LABS: Glucose,Whole Blood 79 mg/dL (75-99)
[2020-01-10] MEDS: FUROSEMIDE 10 MG/ML 4 ML VIAL IV SCH (17:21)
[2020-01-10 19:13] LABS: Albumin, Fluid Source Ascites; Total Protein, Body Fluid 1102 mg/dL
[2020-01-10] MEDS: HEPARIN SODIUM,PORCINE 5,000 UNIT/ML 1 ML VIAL SQ SCH (20:01)
[2020-01-10 20:36] LABS: Glucose,Whole Blood 166 mg/dL (75-99)
[2020-01-11] MEDS: traMADol 50 MG TAB PO PRN ×3 (01:25→16:39)
[2020-01-11 06:46] LABS: Basophils % (A) 1 %; Eosinophils # (A) 0.1 k/uL (0-0.7); Eosinophils % (A) 3 %; HCT 37.6 % (34.0-46.0); HGB 11.8 gm/dL (11.4-16.0); Lymphocytes # (A) 0.6 k/uL (1.0-4.8); Lymphocytes % (A) 21 %; MCH 33.1 pg (25.0-35.0); MCHC 31.3 g/dL (31.0-37.0); MCV 105.7 fL (80.0-100.0); Macrocytosis Moderate; Mean Platelet Volume 8.2; Monocytes # (A) 0.4 k/uL (0-1.0); Monocytes % (A) 13 %; Neutrophils # (A) 1.8 k/uL (1.3-7.7); Neutrophils % (A) 60 %; Platelet Count 102 k/uL (150-450); RBC 3.56 m/uL (3.80-5.40); WBC 2.9 k/uL (3.8-10.6)
[2020-01-11 06:57] LABS: ALT 28 U/L (4-34); AST 87 U/L (14-36); African American GFR (CKD) >90 (>60 ml/min/1.73 sqM); Albumin 2.4 g/dL (3.5-5.0); Alkaline Phosphatase 105 U/L (38-126); Anion Gap 6 mmol/L; Blood Urea Nitrogen 9 mg/dL (7-17); Calcium 7.5 mg/dL (8.4-10.2); Carbon Dioxide 27 mmol/L (22-30); Chloride 102 mmol/L (98-107); Glucose 96 mg/dL (74-99); Non-African American GFR(CKD) >90 (>60 ml/min/1.73 sqM); Potassium 3.4 mmol/L (3.5-5.1); Sodium 135 mmol/L (137-145); Total Bilirubin 1.9 mg/dL (0.2-1.3)
[2020-01-11 07:14] LABS: Glucose,Whole Blood 94 mg/dL (75-99)
[2020-01-11] MEDS: INSULIN ASPART (NovoLOG) 100 UNIT/ML VIAL SQ SCH ×4 (07:25→20:10)
[2020-01-11] MEDS: THIAMINE 100 MG TAB PO SCH ×2 (08:43→16:38)
[2020-01-11] MEDS: SPIRONOLACTONE 25 MG TAB PO SCH (08:43)
[2020-01-11] MEDS: NICOTINE 14MG/24HR PATCH TRANSDERM SCH (08:43)
[2020-01-11] MEDS: HEPARIN SODIUM,PORCINE 5,000 UNIT/ML 1 ML VIAL SQ SCH ×2 (08:43→20:14)
[2020-01-11] MEDS: PANTOPRAZOLE 40 MG TABLET PO SCH (08:43)
[2020-01-11] MEDS: FUROSEMIDE 10 MG/ML 4 ML VIAL IV SCH (08:44)
[2020-01-11] MEDS ORDERED: Potassium Replacement Protocol 1 EACH MISC MISCELLANE PRN (09:37)
--- NOTE | 2020-01-11 09:40 | P.PN ---
Subjective This is a pleasant 54 years old female with past medical history of heart failure, COPD, CVA/TIA, diabetes mellitus, alcoholic liver disease, cigarette smoker, alcohol abuse. She is a patient of Dr. Poole. Patient basically presents because of abdominal distention over 5-6 days, associated with periumbilical abdominal pain about it/10, coming down to 4/10 with pain medication, ferrous like something clumping or stomach, associated with nausea and vomiting a few times, she had no bowel movement for the last 5 days with decreased appetite. She is passing gases. Patient also reports recurrent falls over 2 years, the last one was about 2 we eks ago She denies dysuria or change in frequency of urination. She is aware of her diagnosis of her liver cirrhosis, patient also informed about her lung nodules. Patient is counseled extensively to quit drinking and smoking and she agrees. She smokes about half pack per day and she is on nicotine patch currently, she drinks about 1.0 pint of whiskey every day, no illicit drugs She denies depression or suicidal ideation She has also grade 2018 with right upper extremity weakness with limitation of movement in her right shoulder with pain. Vitals are stable. Labs showing WBC of 3.4K, hemoglobin 13, platelets 121, which is at baseline. INR 1.3. Sodium 134, potassium 3.6, creatinine 0.4, liver enzymes slightly elevated at 113 AST and 35 ALT, bilirubin is elevated at 3.4, magnesium 1.6, ammonia 21, lipase 129 which is normal. UA is suspicious of infection. Alcohol level less than 10. CT of the abdomen and pelvis with contrast in the emergency room showing left pulmonary nodularity, moderate ascites with mild inflammatory changes near the ascending, suspicious for colitis, no diverticulitis per radiologist In the emergency room she got 500 mL of normal saline boluses, given Rocephin and started on CIWA protocol and saline GI team has been consulted from emergency room 01/11/2020 Patient was lying in bed comfortable, not in distress. She denies chest pain or dyspnea. Her abdominal distention is significantly improved. Vitals are stable. Her WBC today is 2.9K with slight drop, hemoglobin 11.8, platelets 102. Potassium is 3.4 slightly though which is replaced, sodium 135, creatinine normal 0.3, sugar controlled. Bilirubin is trending down to 1.9, ammonia within reference range at 21, liver enzymes are trending down. Urine culture is growing gram-negative bacilli, CIWA score 0. GI team were consulted, she status post paracentesis and fluid is sent for culture, WBC and cytology Continue with Lasix and Aldactone, She remains on Rocephin Review of Systems CONSTITUTIONAL: No fever, no malaise, no fatigue. HEENT: No recent visual problems or hearing problems. Denied any sore throat. CARDIOVASCULAR: No orthopnea, PND, no palpitations, no syncope. PULMONARY: No shortness of breath, no cough, no hemoptysis. GASTROINTESTINAL: No diarrhea, , Normoactive bowel sounds. NEUROLOGICAL: No headaches, no numbness. HEMATOLOGICAL: Denies any bleeding or petechiae. GENITOURINARY: Denies any burning micturition, frequency, or urgency. MUSCULOSKELETAL/RHEUMATOLOGICAL: Denies any joint pain, swelling, or any muscle pain. ENDOCRINE: Denies any polyuria or polydipsia. Active Medications Generic Name Dose Route Start Last Admin Trade Name Freq PRN Reason Stop Dose Admin Furosemide 40 mg 01/10/20 09:00 01/11/20 08:44 Lasix IV 40 mg DAILY [facility] Administration Heparin Sodium (Porcine) 5,000 unit 01/10/20 21:00 01/11/20 08:43 Heparin SQ 5,000 unit Q12HR [facility] Administration Ceftriaxone Sodium 1 gm/ 50 mls @ 100 mls/hr 01/10/20 09:00 01/11/20 08:44 Sodium Chloride IVPB 100 mls/hr Q24HR [facility] Administration Insulin Aspart 0 unit 01/11/20 07:30 01/11/20 07:25 Novolog SQ Not Given ACHS [facility] Protocol Lorazepam 1 mg 01/09/20 18:19 Ativan IV Q2HR PRN CIWA 8 or 9 Lorazepam 1 mg 01/09/20 18:19 Ativan IV Q1HR PRN CIWA 10 to 15 Lorazepam 2 mg 01/09/20 18:19 Ativan IV 01/11/20 18:19 Q10M PRN CIWA 16 or higher Miscellaneous Information 1 each 01/11/20 09:37 Potassium Per Protocol MISCELLANE DAILY PRN Per Protocol Protocol Morphine Sulfate 4 mg 01/09/20 18:16 01/10/20 23:14 Morphine Sulfate (Inj) IV 4 mg Q4HR PRN Administration Severe Pain Naloxone HCl 0.2 mg 01/09/20 18:16 Narcan IV Q2M PRN Opioid Reversal Nicotine 1 patch 01/10/20 09:00 01/11/20 08:43 Habitrol 14mg/24hr Patch TRANSDERM 1 patch DAILY [facility] Administration Ondansetron HCl 4 mg 01/09/20 18:16 Zofran IVP Q8HR PRN Nausea And Vomiting Pantoprazole Sodium 40 mg 01/10/20 08:15 01/11/20 08:43 Protonix PO 40 mg [id number] [facility] Administration Spironolactone 25 mg 01/10/20 09:00 01/11/20 08:43 Aldactone PO 25 mg DAILY [facility] Administration Thiamine HCl 100 mg 01/10/20 07:30 01/11/20 08:43 Vitamin B-1 PO 100 mg BID-W/MEALS [facility] Administration Tramadol HCl 50 mg 01/09/20 18:16 01/11/20 08:55 Ultram PO 50 mg Q6H PRN Administration Moderate Pain Objective - Vital Signs Vital signs: Vital Signs Temp 98.3 F 01/11/20 05:00 Pulse 88 01/11/20 05:00 Resp 17 01/11/20 05:00 BP 106/71 01/11/20 05:00 Pulse Ox 98 01/11/20 05:00 Intake & Output 01/10/20 01/11/20 01/11/20 18:59 06:59 18:59 Intake Total 400 840 Balance 400 840 Intake: Intake, IV Titration 400 240 Amount Sodium Chloride 0.9% 1, 240 000 ml @ 60 mls/hr IV . [id number] [facility] Rx#:[id number] cefTRIAXone 1 gm In 400 Sodium Chloride 0.9% 50 ml @ 100 mls/hr IVPB Q24HR [facility] Rx#:[id number] Oral 600 Other: Voiding Method Toilet Toilet Toilet # Voids 1 3 - Exam GENERAL: The patient is alert and oriented x3, not in any acute distress. Well developed, well nourished. HEENT: Pupils are round and equally reacting to light. EOMI. No scleral icterus. No conjunctival pallor. Normocephalic, atraumatic. No pharyngeal erythema. No thyromegaly. CARDIOVASCULAR: S1 and S2 present. No murmurs, rubs, or gallops. PULMONARY: Chest is clear to auscultation, no wheezing or crackles. -ABDOMEN: Soft,normoactive bowel sounds. No palpable organomegaly. Abdominal distended and central abdominal tenderness with no rebound tenderness MUSCULOSKELETAL: No joint swelling or deformity. EXTREMITIES: No cyanosis, clubbing, or pedal edema. -NEUROLOGICAL: Gross neurological examination did not reveal any focal deficits. Right upper extremity weakness and limitation of movement at the right shoulder SKIN: No rashes. No petechiae - Labs CBC & Chem 7: 01/11/20 06:23 01/11/20 06:23 Labs: Abnormal Lab Results - Last 24 Hours (Table) 01/10/20 01/10/20 01/11/20 Range/Units 11:55 20:34 06:23 WBC 2.9 L (3.8-10.6) k/uL RBC 3.56 L (3.80-5.40) m/uL MCV 105.7 H (80.0-100.0) fL Plt Count 102 L (150-450) k/uL Lymphocytes # 0.6 L (1.0-4.8) k/uL Sodium (137-145) mmol/L Potassium (3.5-5.1) mmol/L Creatinine (0.52-1.04) mg/dL POC Glucose (mg/dL) 106 H 166 H (75-99) mg/dL Calcium (8.4-10.2) mg/dL Total Bilirubin (0.2-1.3) mg/dL AST (14-36) U/L Total Protein (6.3-8.2) g/dL Albumin (3.5-5.0) g/dL 01/11/20 Range/Units 06:23 WBC (3.8-10.6) k/uL RBC (3.80-5.40) m/uL MCV (80.0-100.0) fL Plt Count (150-450) k/uL Lymphocytes # (1.0-4.8) k/uL Sodium 135 L (137-145) mmol/L Potassium 3.4 L (3.5-5.1) mmol/L Creatinine 0.38 L (0.52-1.04) mg/dL POC Glucose (mg/dL) (75-99) mg/dL Calcium 7.5 L (8.4-10.2) mg/dL Total Bilirubin 1.9 H (0.2-1.3) mg/dL AST 87 H (14-36) U/L Total Protein 6.0 L (6.3-8.2) g/dL Albumin 2.4 L (3.5-5.0) g/dL Microbiology - Last 24 Hours (Table) 01/10/20 14:21 Gram Stain - Preliminary Ascites Fluid Body Fluid Culture - Preliminary 01/09/20 15:35 Urine Culture - Preliminary Urine,Voided Gram Neg Bacilli Assessment and Plan Assessment: Ascending colitis Also will Acute urinary tract infection Elevated liver enzymes and bilirubin, could be secondary to alcoholic liver disease. Check liver ultrasound alcoholic liver cirrhosis with ascites Lung nodules, patient instructed for follow-up with pulmonary service. Diabetes mellitus Alcohol abuse, atherosclerotic of alcohol withdrawal Nicotine dependence Thrombocytopenia, chronic Chronic right shoulder pain History of CVA/TIA COPD, not in acute exacerbation Cardiac heart failure, unknown ejection fraction Plan: This is A pleasant 54 years old female who presents with colitis, ascites, possible UTI with continue with antibiotic of ceftriaxone, GI consult. Patient was instructed to follow up with her doctor for pulmonary nodule, risks including but not limited to cancer are explained and she understands. The patient on insulin sliding scale. Follow-up ascites fluid results, Start Lasix and Aldactone, Continue with CIWA and same and monitor for alcohol withdrawal and DT Labs and medication were reviewed.. Continue same treatment. Continue with symptomatic treatment. Resume home medication. Monitor lytes and vitals. DVT and GI prophylaxis. Further recommendations of the clinical course of the patient DVT prophylaxis: Subcutaneous heparin GI Prophylaxis: Ppi
[2020-01-11 12:57] LABS: Glucose,Whole Blood 147 mg/dL (75-99)
[2020-01-11] MEDS: POTASSIUM CHLORIDE ER 20 MEQ TAB.ER PO SCH ×2 (13:00→14:54)
[2020-01-11 15:09] VITALS: RESP 16
[2020-01-11 17:16] LABS: Glucose,Whole Blood 122 mg/dL (75-99)
--- NOTE | 2020-01-11 17:32 | P.CONS ---
History of Present Illness - Reason for Consult Consult date: 01/10/20 Alcoholic cirrhosis with ascites Requesting physician: Rikki E Sheet - Chief Complaint Abdominal distension - History of Present Illness 54-year-old female with a medical history significant for CHF, COPD, prior CVA, diabetes mellitus, alcoholic liver disease, tobacco abuse and alcohol abuse who presented to the hospital due to complaints of increasing abdominal swelling. The patient reports drinking approximately a pint a day of alcohol. She does have a prior history of alcoholic liver disease and a site ascites requiring paracentesis twice in 2017. She reports she had been abstinent from alcohol however began drinking again. Intermittently she will see dark urine. She denies any encephalopathy but does report some memory impairment after her CVA. She does report colonoscopy in the past significant for diverticulosis. Computed tomography scan of the abdomen significant for ascites and some right colonic inflammation likely related to ascites. Laboratory evaluation significant for a WBC 3.4, hemoglobin 13, platelet count 121,000, INR 1.3, total bilirubin 3.4, alkaline phosphatase 114, AST 113 and ALT 35 with an ammonia of 21. Her predominant symptoms prior to presentation were increasing abdominal swelling. This had occurred over the week prior to presentation. Review of Systems REVIEW OF SYSTEMS: CONSTITUTIONAL: Denies any fevers, chills, weight change or fatigue. CARDIOVASCULAR: Denies any chest pain, palpitations high or low blood pressures RESPIRATORY: Denies any shortness of breath, hemoptysis or cough. GENITOURINARY: No dysuria or hematuria. MUSCULOSKELETAL: No weakness reported. SKIN: Denies any new rashes or lesions, jaundice or pallor. PSYCHIATRIC: Denies any depression or anxiety. NEUROLOGY: Denies headache, denies any new focal deficits. EARS/NOSE/THROAT: No recent hearing change, congestion, nasal discharge or sore throat. EYES: No pain in eyes, discharge or change in vision. GASTROINTESTINAL: As per HPI. Past Medical History Past Medical History: Heart Failure, COPD, CVA/TIA, Diabetes Mellitus, Liver Disease, Memory Impairment Additional Past Medical History / Comment(s): 12/05/18 ADMISSION FOR Anemia AND HYPOGLYCEMIA. IDD. Constipation. Liver disease, alcholism. CVA 05/2018, NO RESIDUAL. History of Any Multi-Drug Resistant Organisms: None Reported Past Surgical History: Hernia Repair Additional Past Surgical History / Comment(s): ENDOSCOPIES, ventral hernia repair Past Anesthesia/Blood Transfusion Reactions: No Reported Reaction Additional Past Anesthesia/Blood Transfusion Reaction / Comm: Never had general anethesia. BLOOD TRANSFUSION ON 12/08/18 , NO REACTION. Past Psychological History: No Psychological Hx Reported Smoking Status: Current every day smoker Past Alcohol Use History: Abuse Past Drug Use History: Marijuana - Past Family History Sister(s) Family Medical History: Diabetes Mellitus Additional Family Medical History / Comment(s): liver disease in 1 sister, kidney disease in 1 sister, lymphoma Medications and Allergies Home Medications Medication Instructions Recorded Confirmed Type Polyethylene Glycol 3350 [Miralax] 17 gm PO DAILY PRN 01/09/20 01/09/20 History Allergies Allergy/AdvReac Type Severity Reaction Status Date / Time No Known Allergies Allergy Verified 01/09/20 19:16 Physical Exam Vitals: Vital Signs Temp Pulse Pulse Resp BP BP Pulse Ox 01/10/20 05:00 98.2 F 83 18 112/62 98 01/10/20 00:00 91 16 01/09/20 19:50 98.3 F 91 16 126/77 99 01/09/20 19:35 98.6 F 90 20 117/80 98 01/09/20 18:00 91 16 115/77 98 01/09/20 17:00 88 18 120/77 98 01/09/20 14:11 98.3 F 101 H 18 131/70 100 Intake and Output 01/09/20 01/10/20 01/10/20 22:59 06:59 14:59 Intake Total 120 Balance 120 Intake: Intake, IV Titration 120 Amount Sodium Chloride 0.9% 1, 120 000 ml @ 60 mls/hr IV . [id number] [facility] Rx#:[id number] Other: Voiding Method Toilet # Voids 1 Weight 68.039 kg On physical examination, patient appears comfortable in no apparent distress. HEAD: Normocephalic, atraumatic. EYES: No scleral icterus. No conjunctival injection. MOUTH: No lesions, tongue midline. NECK: Trachea midline, no gross abnormalities. CHEST: Clear to auscultation with no wheezing or rhonchi appreciated. HEART: Regular rate and rhythm. ABDOMEN: Soft, moderately distended. Bowel sounds are positive. No organomegaly. No guarding or rigidity. EXTREMITIES: No pedal edema. SKIN: No rashes, no jaundice. NEUROLOGIC: Alert and oriented x3, no asterixis noted. No focal deficits. Results CBC & Chem 7: 01/11/20 06:23 01/11/20 06:23 Labs: Abnormal Lab Results - Last 24 Hours (Table) 01/09/20 01/09/20 01/09/20 Range/Units 15:07 15:07 15:07 WBC 3.4 L (3.8-10.6) k/uL RBC 3.76 L (3.80-5.40) m/uL MCV 104.2 H (80.0-100.0) fL Plt Count 121 L (150-450) k/uL Lymphocytes # (Manual) 0.75 L (1.0-4.8) k/uL PT 13.4 H (9.0-12.0) sec INR 1.3 H (<1.2) Sodium 134 L (137-145) mmol/L Creatinine 0.48 L (0.52-1.04) mg/dL Glucose 111 H (74-99) mg/dL Total Bilirubin 3.4 H (0.2-1.3) mg/dL AST 113 H (14-36) U/L ALT 35 H (4-34) U/L Albumin 3.0 L (3.5-5.0) g/dL Urine Appearance (Clear) Urine Protein (Negative) Urine Blood (Negative) Urine Nitrite (Negative) Urine Bilirubin (Negative) Ur Leukocyte Esterase (Negative) Urine RBC (0-5) /hpf Urine WBC (0-5) /hpf Urine WBC Clumps (None) /hpf Ur Squamous Epith Cells (0-4) /hpf Urine Bacteria (None) /hpf Hyaline Casts (0-2) /lpf Urine Mucus (None) /hpf 01/09/20 Range/Units 15:35 WBC (3.8-10.6) k/uL RBC (3.80-5.40) m/uL MCV (80.0-100.0) fL Plt Count (150-450) k/uL Lymphocytes # (Manual) (1.0-4.8) k/uL PT (9.0-12.0) sec INR (<1.2) Sodium (137-145) mmol/L Creatinine (0.52-1.04) mg/dL Glucose (74-99) mg/dL Total Bilirubin (0.2-1.3) mg/dL AST (14-36) U/L ALT (4-34) U/L Albumin (3.5-5.0) g/dL Urine Appearance Cloudy H (Clear) Urine Protein 1+ H (Negative) Urine Blood Small H (Negative) Urine Nitrite Positive H (Negative) Urine Bilirubin 1+ H (Negative) Ur Leukocyte Esterase Large H (Negative) Urine RBC 8 H (0-5) /hpf Urine WBC >182 H (0-5) /hpf Urine WBC Clumps Rare H (None) /hpf Ur Squamous Epith Cells 23 H (0-4) /hpf Urine Bacteria Occasional H (None) /hpf Hyaline Casts 27 H (0-2) /lpf Urine Mucus Many H (None) /hpf Microbiology - Last 24 Hours (Table) 01/09/20 15:35 Urine Culture - Preliminary Urine,Voided CT scan - abdomen: report reviewed (Computed tomography scan of the abdomen with findings of ascites and right colonic inflammation.) Assessment and Plan (1) Alcoholic cirrhosis of liver with ascites Narrative/Plan: 54-year-old female with a history of alcoholic liver disease with ascites previously requiring paracentesis twice in the past in 2017. She had been abstinent from alcohol for a period however is currently drinking up to a pint a day. She presents to the hospital with increasing abdominal distention with computed tomography scan of the abdomen showing abdominal ascites and right colonic inflammation. Currently on diuresis with plan for paracentesis. Current Visit: No Status: Acute Code(s): K70.31 - ALCOHOLIC CIRRHOSIS OF LIVER WITH ASCITES SNOMED Code(s): 519503126 (2) Abdominal pain Current Visit: Yes Status: Acute Code(s): R10.9 - UNSPECIFIED ABDOMINAL PAIN SNOMED Code(s): 03673906 (3) Ascites Current Visit: Yes Status: Acute Code(s): R18.8 - OTHER ASCITES SNOMED Code(s): 392407804 (4) H/O ETOH abuse Current Visit: Yes Status: Acute Code(s): Z87.898 - PERSONAL HISTORY OF OTHER SPECIFIED CONDITIONS SNOMED Code(s): 176329952 Plan: Supportive care Okay for sodium restricted diet Continue Lasix 40 mg daily Continue Aldactone will increase to 50 mg daily Paracentesis ordered Alcohol abstinence Monitor for signs or symptoms of alcohol withdrawal Continue Protonix daily Thank you for allowing us to participate in the care of the patient we will continue to follow
--- NOTE | 2020-01-11 17:36 | P.PN ---
Subjective Progress Note Date: 01/04/20 Principal diagnosis: Alcoholic liver disease, ascites Patient is seen lying in bed reporting she is feeling somewhat better after paracentesis. No nausea or vomiting. She is tolerating her diet. Objective - Vital Signs Vital signs: Vital Signs Temp 98.3 F 01/11/20 05:00 Pulse 88 01/11/20 05:00 Resp 17 01/11/20 05:00 BP 106/71 01/11/20 05:00 Pulse Ox 98 01/11/20 05:00 Intake & Output 01/10/20 01/11/20 01/11/20 18:59 06:59 18:59 Intake Total 400 840 Balance 400 840 Intake: Intake, IV Titration 400 240 Amount Sodium Chloride 0.9% 1, 240 000 ml @ 60 mls/hr IV . [id number] [facility] Rx#:[id number] cefTRIAXone 1 gm In 400 Sodium Chloride 0.9% 50 ml @ 100 mls/hr IVPB Q24HR [facility] Rx#:[id number] Oral 600 Other: Voiding Method Toilet Toilet Toilet # Voids 1 3 - Exam On physical examination, patient appears comfortable in no apparent distress. HEAD: Normocephalic, atraumatic. EYES: No scleral icterus. No conjunctival injection. MOUTH: No lesions, tongue midline. NECK: Trachea midline, no gross abnormalities. ABDOMEN: Soft, distended but improved. Bowel sounds are positive. No organomegaly. No guarding or rigidity. EXTREMITIES: No pedal edema. SKIN: No rashes, no jaundice. NEUROLOGIC: Alert and oriented x3. No focal deficits. - Labs CBC & Chem 7: 01/11/20 06:23 01/11/20 06:23 Labs: Abnormal Lab Results - Last 24 Hours (Table) 01/10/20 01/10/20 01/11/20 Range/Units 11:55 20:34 06:23 WBC 2.9 L (3.8-10.6) k/uL RBC 3.56 L (3.80-5.40) m/uL MCV 105.7 H (80.0-100.0) fL Plt Count 102 L (150-450) k/uL Lymphocytes # 0.6 L (1.0-4.8) k/uL Sodium (137-145) mmol/L Potassium (3.5-5.1) mmol/L Creatinine (0.52-1.04) mg/dL POC Glucose (mg/dL) 106 H 166 H (75-99) mg/dL Calcium (8.4-10.2) mg/dL Total Bilirubin (0.2-1.3) mg/dL AST (14-36) U/L Total Protein (6.3-8.2) g/dL Albumin (3.5-5.0) g/dL 01/11/20 Range/Units 06:23 WBC (3.8-10.6) k/uL RBC (3.80-5.40) m/uL MCV (80.0-100.0) fL Plt Count (150-450) k/uL Lymphocytes # (1.0-4.8) k/uL Sodium 135 L (137-145) mmol/L Potassium 3.4 L (3.5-5.1) mmol/L Creatinine 0.38 L (0.52-1.04) mg/dL POC Glucose (mg/dL) (75-99) mg/dL Calcium 7.5 L (8.4-10.2) mg/dL Total Bilirubin 1.9 H (0.2-1.3) mg/dL AST 87 H (14-36) U/L Total Protein 6.0 L (6.3-8.2) g/dL Albumin 2.4 L (3.5-5.0) g/dL Microbiology - Last 24 Hours (Table) 01/10/20 14:21 Gram Stain - Preliminary Ascites Fluid Body Fluid Culture - Preliminary 01/09/20 15:35 Urine Culture - Preliminary Urine,Voided Gram Neg Bacilli Assessment and Plan (1) Alcoholic cirrhosis of liver with ascites Narrative/Plan: 54-year-old female with a history of alcoholic liver disease with ascites previously requiring paracentesis twice in the past in 2017. She had been abstinent from alcohol for a period however is currently drinking up to a pint a day. She presents to the hospital with increasing abdominal distention with computed tomography scan of the abdomen showing abdominal ascites and right colonic inflammation. Paracentesis with approximately 6 L of fluid removed. Current Visit: No Status: Acute Code(s): K70.31 - ALCOHOLIC CIRRHOSIS OF LIVER WITH ASCITES SNOMED Code(s): 211529515 (2) Abdominal pain Current Visit: Yes Status: Acute Code(s): R10.9 - UNSPECIFIED ABDOMINAL PAIN SNOMED Code(s): 81557139 (3) Ascites Current Visit: Yes Status: Acute Code(s): R18.8 - OTHER ASCITES SNOMED Code(s): 730724202 (4) H/O ETOH abuse Current Visit: Yes Status: Acute Code(s): Z87.898 - PERSONAL HISTORY OF OTHER SPECIFIED CONDITIONS SNOMED Code(s): 183968055 Plan: Supportive care Okay for sodium restricted diet Continue Lasix 40 mg daily Continue Aldactone will increase to 50 mg daily Paracentesis ordered Alcohol abstinence Monitor for signs or symptoms of alcohol withdrawal Continue Protonix daily Thank you for allowing us to participate in the care of the patient we will continue to follow
[2020-01-11 19:58] LABS: Glucose,Whole Blood 144 mg/dL (75-99)
[2020-01-12] MEDS: traMADol 50 MG TAB PO PRN (00:56)
[2020-01-12] MEDS: MORPHINE SULFATE 4 MG/ML SYRINGE IV PRN (04:38)
[2020-01-12 06:32] LABS: ALT 27 U/L (4-34); AST 93 U/L (14-36); African American GFR (CKD) >90 (>60 ml/min/1.73 sqM); Albumin 2.5 g/dL (3.5-5.0); Alkaline Phosphatase 101 U/L (38-126); Anion Gap 6 mmol/L; Blood Urea Nitrogen 12 mg/dL (7-17); Calcium 7.4 mg/dL (8.4-10.2); Carbon Dioxide 26 mmol/L (22-30); Chloride 100 mmol/L (98-107); Glucose 111 mg/dL (74-99); Non-African American GFR(CKD) >90 (>60 ml/min/1.73 sqM); Potassium 4.1 mmol/L (3.5-5.1); Sodium 132 mmol/L (137-145); Total Bilirubin 1.7 mg/dL (0.2-1.3)
[2020-01-12 06:40] LABS: Basophils % (A) 1 %; Eosinophils # (A) 0.1 k/uL (0-0.7); Eosinophils % (A) 2 %; HCT 38.9 % (34.0-46.0); HGB 12.6 gm/dL (11.4-16.0); Lymphocytes # (A) 0.7 k/uL (1.0-4.8); Lymphocytes % (A) 23 %; MCH 33.9 pg (25.0-35.0); MCHC 32.3 g/dL (31.0-37.0); MCV 104.8 fL (80.0-100.0); Macrocytosis Moderate; Mean Platelet Volume 8.6; Monocytes # (A) 0.3 k/uL (0-1.0); Monocytes % (A) 11 %; Neutrophils # (A) 1.8 k/uL (1.3-7.7); Neutrophils % (A) 60 %; Platelet Count 119 k/uL (150-450); RBC 3.71 m/uL (3.80-5.40); RDW 14.1 % (11.5-15.5)
[2020-01-12 07:24] LABS: Large Platelets Present
[2020-01-12 07:49] LABS: Glucose,Whole Blood 101 mg/dL (75-99)
[2020-01-12] MEDS: INSULIN ASPART (NovoLOG) 100 UNIT/ML VIAL SQ SCH ×2 (08:00→12:53)
[2020-01-12] MEDS ORDERED: MORPHINE SULFATE 4 MG/ML SYRINGE IV PRN (08:10)
[2020-01-12] MEDS: NICOTINE 14MG/24HR PATCH TRANSDERM SCH (08:14)
[2020-01-12] MEDS: THIAMINE 100 MG TAB PO SCH (08:14)
[2020-01-12] MEDS: HEPARIN SODIUM,PORCINE 5,000 UNIT/ML 1 ML VIAL SQ SCH (08:14)
[2020-01-12] MEDS: PANTOPRAZOLE 40 MG TABLET PO SCH (08:14)
[2020-01-12] MEDS: FUROSEMIDE 10 MG/ML 4 ML VIAL IV SCH (08:15)
--- NOTE | 2020-01-12 08:58 | P.PN ---
Subjective This is a pleasant 54 years old female with past medical history of heart failure, COPD, CVA/TIA, diabetes mellitus, alcoholic liver disease, cigarette smoker, alcohol abuse. She is a patient of Dr. Poole. Patient basically presents because of abdominal distention over 5-6 days, associated with periumbilical abdominal pain about it/10, coming down to 4/10 with pain medication, ferrous like something clumping or stomach, associated with nausea and vomiting a few times, she had no bowel movement for the last 5 days with decreased appetite. She is passing gases. Patient also reports recurrent falls over 2 years, the last one was about 2 we eks ago She denies dysuria or change in frequency of urination. She is aware of her diagnosis of her liver cirrhosis, patient also informed about her lung nodules. Patient is counseled extensively to quit drinking and smoking and she agrees. She smokes about half pack per day and she is on nicotine patch currently, she drinks about 1.0 pint of whiskey every day, no illicit drugs She denies depression or suicidal ideation She has also grade 2018 with right upper extremity weakness with limitation of movement in her right shoulder with pain. Vitals are stable. Labs showing WBC of 3.4K, hemoglobin 13, platelets 121, which is at baseline. INR 1.3. Sodium 134, potassium 3.6, creatinine 0.4, liver enzymes slightly elevated at 113 AST and 35 ALT, bilirubin is elevated at 3.4, magnesium 1.6, ammonia 21, lipase 129 which is normal. UA is suspicious of infection. Alcohol level less than 10. CT of the abdomen and pelvis with contrast in the emergency room showing left pulmonary nodularity, moderate ascites with mild inflammatory changes near the ascending, suspicious for colitis, no diverticulitis per radiologist In the emergency room she got 500 mL of normal saline boluses, given Rocephin and started on CIWA protocol and saline GI team has been consulted from emergency room 01/11/2020 Patient was lying in bed comfortable, not in distress. She denies chest pain or dyspnea. Her abdominal distention is significantly improved. Vitals are stable. Her WBC today is 2.9K with slight drop, hemoglobin 11.8, platelets 102. Potassium is 3.4 slightly though which is replaced, sodium 135, creatinine normal 0.3, sugar controlled. Bilirubin is trending down to 1.9, ammonia within reference range at 21, liver enzymes are trending down. Urine culture is growing gram-negative bacilli, CIWA score 0. GI team were consulted, she status post paracentesis and fluid is sent for culture, WBC and cytology Continue with Lasix and Aldactone, She remains on Rocephin 01/12/2020 Patient looks comfortable in bed however she still complaining from abdominal pain which woke her from sleep last night, currently feels better as 4/10 in severity. She did not have bowel movement although drinking prune juice and she was asking for MiraLAX to be given to her. Which is ordered. Vitals are stable and left showing WBCs of 3.0K, platelets 119, probably from the effect of alcohol. BMP is unremarkable, liver enzymes are trending down. Urine culture is growing E. coli which is sensitive to Rocephin which she is on. B12 and folate levels are pending. And patient is interesting on seeing social insurance analyst for her alcohol problem. Patient also has been complaining of from right shoulder and scapula pain for about a year with some limitation of movement in her right upper extremity above her head and when she cleans herself and wipes after bowel movements. We'll do x-ray of the right shoulder, patient was instructed to follow up with an orthopedic as an outpatient and she agrees Possible discharge in 24-48 hours if she keeps improvement Review of Systems CONSTITUTIONAL: No fever, no malaise, no fatigue. HEENT: No recent visual problems or hearing problems. Denied any sore throat. CARDIOVASCULAR: No orthopnea, PND, no palpitations, no syncope. PULMONARY: No shortness of breath, no cough, no hemoptysis. GASTROINTESTINAL: No diarrhea, , Normoactive bowel sounds. NEUROLOGICAL: No headaches, no numbness. HEMATOLOGICAL: Denies any bleeding or petechiae. GENITOURINARY: Denies any burning micturition, frequency, or urgency. MUSCULOSKELETAL/RHEUMATOLOGICAL: Denies any joint pain, swelling, or any muscle pain. ENDOCRINE: Denies any polyuria or polydipsia. Active Medications Generic Name Dose Route Start Last Admin Trade Name Freq PRN Reason Stop Dose Admin Furosemide 40 mg 01/10/20 09:00 01/12/20 08:15 Lasix IV 40 mg DAILY PRACHI Administration Heparin Sodium (Porcine) 5,000 unit 01/10/20 21:00 01/12/20 08:14 Heparin SQ 5,000 unit Q12HR PRACHI Administration Ceftriaxone Sodium 1 gm/ 50 mls @ 100 mls/hr 01/10/20 09:00 01/12/20 08:15 Sodium Chloride IVPB 100 mls/hr Q24HR PRACHI Administration Insulin Aspart 0 unit 01/11/20 07:30 01/12/20 08:00 Novolog SQ Not Given ACHS [facility] Protocol Lorazepam 1 mg 01/09/20 18:19 Ativan IV Q2HR PRN CIWA 8 or 9 Lorazepam 1 mg 01/09/20 18:19 Ativan IV Q1HR PRN CIWA 10 to 15 Miscellaneous Information 1 each 01/11/20 09:37 Potassium Per Protocol MISCELLANE DAILY PRN Per Protocol Protocol Morphine Sulfate 4 mg 01/12/20 08:10 Morphine Sulfate (Inj) IV Q6HR PRN Severe Pain Naloxone HCl 0.2 mg 01/09/20 18:16 Narcan IV Q2M PRN Opioid Reversal Nicotine 1 patch 01/10/20 09:00 01/12/20 08:14 Habitrol 14mg/24hr Patch TRANSDERM 1 patch DAILY PRACHI Administration Ondansetron HCl 4 mg 01/09/20 18:16 Zofran IVP Q8HR PRN Nausea And Vomiting Pantoprazole Sodium 40 mg 01/10/20 08:15 01/12/20 08:14 Protonix PO 40 mg AC-[id number] PRACHI Administration Spironolactone 50 mg 01/12/20 09:00 01/12/20 08:15 Aldactone PO 50 mg DAILY PRACHI Administration Thiamine HCl 100 mg 01/10/20 07:30 01/12/20 08:14 Vitamin B-1 PO 100 mg BID-W/MEALS PRACHI Administration Tramadol HCl 50 mg 01/09/20 18:16 01/12/20 00:56 Ultram PO 50 mg Q6H PRN Administration Moderate Pain Objective - Vital Signs Vital signs: Vital Signs Temp 98.4 F 01/12/20 04:50 Pulse 82 01/12/20 04:50 Resp 16 01/12/20 04:50 BP 116/77 01/12/20 04:50 Pulse Ox 99 01/12/20 04:50 Intake & Output 01/11/20 01/12/20 01/12/20 18:59 06:59 18:59 Intake Total 100 1180 Balance 100 1180 Intake: Intake, IV Titration 100 Amount cefTRIAXone 1 gm In 100 Sodium Chloride 0.9% 50 ml @ 100 mls/hr IVPB Q24HR [facility] Rx#:[id number] Oral 1180 Other: Voiding Method Toilet Toilet Toilet # Voids 3 - Exam GENERAL: The patient is alert and oriented x3, not in any acute distress. Well developed, well nourished. HEENT: Pupils are round and equally reacting to light. EOMI. No scleral icterus. No conjunctival pallor. Normocephalic, atraumatic. No pharyngeal erythema. No thyromegaly. CARDIOVASCULAR: S1 and S2 present. No murmurs, rubs, or gallops. PULMONARY: Chest is clear to auscultation, no wheezing or crackles. -ABDOMEN: Soft,normoactive bowel sounds. No palpable organomegaly. Abdominal d istended and central abdominal tenderness with no rebound tenderness MUSCULOSKELETAL: No joint swelling or deformity. EXTREMITIES: No cyanosis, clubbing, or pedal edema. -NEUROLOGICAL: Gross neurological examination did not reveal any focal deficits. Right upper extremity weakness and limitation of movement at the right shoulder SKIN: No rashes. No petechiae - Labs CBC & Chem 7: 01/12/20 05:35 01/12/20 05:35 Labs: Abnormal Lab Results - Last 24 Hours (Table) 01/11/20 01/11/20 01/11/20 Range/Units 12:55 17:14 19:57 WBC (3.8-10.6) k/uL RBC (3.80-5.40) m/uL MCV (80.0-100.0) fL Plt Count (150-450) k/uL Lymphocytes # (1.0-4.8) k/uL Sodium (137-145) mmol/L Creatinine (0.52-1.04) mg/dL Glucose (74-99) mg/dL POC Glucose (mg/dL) 147 H 122 H 144 H (75-99) mg/dL Calcium (8.4-10.2) mg/dL Total Bilirubin (0.2-1.3) mg/dL AST (14-36) U/L Total Protein (6.3-8.2) g/dL Albumin (3.5-5.0) g/dL 01/12/20 01/12/20 01/12/20 Range/Units 05:35 05:35 07:48 WBC 3.0 L (3.8-10.6) k/uL RBC 3.71 L (3.80-5.40) m/uL MCV 104.8 H (80.0-100.0) fL Plt Count 119 L (150-450) k/uL Lymphocytes # 0.7 L (1.0-4.8) k/uL Sodium 132 L (137-145) mmol/L Creatinine 0.43 L (0.52-1.04) mg/dL Glucose 111 H (74-99) mg/dL POC Glucose (mg/dL) 101 H (75-99) mg/dL Calcium 7.4 L (8.4-10.2) mg/dL Total Bilirubin 1.7 H (0.2-1.3) mg/dL AST 93 H (14-36) U/L Total Protein 6.0 L (6.3-8.2) g/dL Albumin 2.5 L (3.5-5.0) g/dL Microbiology - Last 24 Hours (Table) 01/09/20 15:35 Urine Culture - Final Urine,Voided Escherichia coli 01/10/20 14:21 Gram Stain - Preliminary Ascites Fluid Body Fluid Culture - Preliminary Assessment and Plan Assessment: alcoholic liver cirrhosis with ascites Ascending colitis Also will Acute urinary tract infection Elevated liver enzymes and bilirubin, could be secondary to alcoholic liver disease. Check liver ultrasound Chronic right shoulder pain Lung nodules, patient instructed for follow-up with pulmonary service. Diabetes mellitus Alcohol abuse, atherosclerotic of alcohol withdrawal Nicotine dependence Thrombocytopenia, chronic Chronic right shoulder pain History of CVA/TIA COPD, not in acute exacerbation Cardiac heart failure, unknown ejection fraction Plan: This is A pleasant 54 years old female who presents with colitis, ascites, possible UTI with continue with antibiotic of ceftriaxone, GI consult. Patient was instructed to follow up with her doctor for pulmonary nodule, risks includin g but not limited to cancer are explained and she understands. The patient on insulin sliding scale. Follow-up ascites fluid results, Start Lasix and Aldactone, Continue with CIWA and same and monitor for alcohol withdrawal and DT Right shoulder x-ray Labs and medication were reviewed.. Continue same treatment. Continue with symptomatic treatment. Resume home medication. Monitor lytes and vitals. DVT and GI prophylaxis. Further recommendations of the clinical course of the patient DVT prophylaxis: Subcutaneous heparin GI Prophylaxis: Ppi
[2020-01-12] MEDS ORDERED: SPIRONOLACTONE 25 MG TAB PO SCH (09:00)
[2020-01-12 11:23] LABS: Glucose,Whole Blood 137 mg/dL (75-99)
[2020-01-12 12:41] VITALS: BP 104/66; PULSE 72; TEMP 98.3
[2020-01-12] MEDS ORDERED: LACTULOSE 20 GM/30 ML CUP PO ONE (12:56)
--- NOTE | 2020-01-12 12:59 | P.PN ---
Subjective Progress Note Date: 01/12/20 Principal diagnosis: Alcoholic liver disease, ascites Patient is seen lying in bed currently reporting difficulty sleeping last night due to abdominal pain. Patient is tolerating her diet reporting some symptoms of reflux. Objective - Vital Signs Vital signs: Vital Signs Temp 98.3 F 01/12/20 11:30 Pulse 72 01/12/20 11:30 Resp 16 01/12/20 11:30 BP 104/66 01/12/20 11:30 Pulse Ox 98 01/12/20 11:30 Intake & Output 01/11/20 01/12/20 01/12/20 18:59 06:59 18:59 Intake Total 100 1180 Balance 100 1180 Intake: Intake, IV Titration 100 Amount cefTRIAXone 1 gm In 100 Sodium Chloride 0.9% 50 ml @ 100 mls/hr IVPB Q24HR [facility] Rx#:[id number] Oral 1180 Other: Voiding Method Toilet Toilet Toilet # Voids 3 - Exam On physical examination, patient appears comfortable in no apparent distress. HEAD: Normocephalic, atraumatic. EYES: No scleral icterus. No conjunctival injection. MOUTH: No lesions, tongue midline. NECK: Trachea midline, no gross abnormalities. ABDOMEN: Soft, distended but improved. Bowel sounds are positive. No organomegaly. No guarding or rigidity. EXTREMITIES: No pedal edema. SKIN: No rashes, no jaundice. NEUROLOGIC: Alert and oriented x3. No focal deficits. - Labs CBC & Chem 7: 01/12/20 05:35 01/12/20 05:35 Labs: Abnormal Lab Results - Last 24 Hours (Table) 01/11/20 01/11/20 01/11/20 Range/Units 12:55 17:14 19:57 WBC (3.8-10.6) k/uL RBC (3.80-5.40) m/uL MCV (80.0-100.0) fL Plt Count (150-450) k/uL Lymphocytes # (1.0-4.8) k/uL Sodium (137-145) mmol/L Creatinine (0.52-1.04) mg/dL Glucose (74-99) mg/dL POC Glucose (mg/dL) 147 H 122 H 144 H (75-99) mg/dL Calcium (8.4-10.2) mg/dL Total Bilirubin (0.2-1.3) mg/dL AST (14-36) U/L Total Protein (6.3-8.2) g/dL Albumin (3.5-5.0) g/dL 01/12/20 01/12/20 01/12/20 Range/Units 05:35 05:35 07:48 WBC 3.0 L (3.8-10.6) k/uL RBC 3.71 L (3.80-5.40) m/uL MCV 104.8 H (80.0-100.0) fL Plt Count 119 L (150-450) k/uL Lymphocytes # 0.7 L (1.0-4.8) k/uL Sodium 132 L (137-145) mmol/L Creatinine 0.43 L (0.52-1.04) mg/dL Glucose 111 H (74-99) mg/dL POC Glucose (mg/dL) 101 H (75-99) mg/dL Calcium 7.4 L (8.4-10.2) mg/dL Total Bilirubin 1.7 H (0.2-1.3) mg/dL AST 93 H (14-36) U/L Total Protein 6.0 L (6.3-8.2) g/dL Albumin 2.5 L (3.5-5.0) g/dL 01/12/20 Range/Units 11:21 WBC (3.8-10.6) k/uL RBC (3.80-5.40) m/uL MCV (80.0-100.0) fL Plt Count (150-450) k/uL Lymphocytes # (1.0-4.8) k/uL Sodium (137-145) mmol/L Creatinine (0.52-1.04) mg/dL Glucose (74-99) mg/dL POC Glucose (mg/dL) 137 H (75-99) mg/dL Calcium (8.4-10.2) mg/dL Total Bilirubin (0.2-1.3) mg/dL AST (14-36) U/L Total Protein (6.3-8.2) g/dL Albumin (3.5-5.0) g/dL Microbiology - Last 24 Hours (Table) 01/10/20 14:21 Gram Stain - Preliminary Ascites Fluid Body Fluid Culture - Preliminary 01/09/20 15:35 Urine Culture - Final Urine,Voided Escherichia coli Assessment and Plan (1) Alcoholic cirrhosis of liver with ascites Narrative/Plan: 54-year-old female with a history of alcoholic liver disease with ascites previously requiring paracentesis twice in the past in 2017. She had been abst inent from alcohol for a period however is currently drinking up to a pint a day. She presents to the hospital with increasing abdominal distention with computed tomography scan of the abdomen showing abdominal ascites and right colonic inflammation. Paracentesis with approximately 6 L of fluid removed. Current Visit: No Status: Acute Code(s): K70.31 - ALCOHOLIC CIRRHOSIS OF LIVER WITH ASCITES SNOMED Code(s): 480445896 (2) Abdominal pain Current Visit: Yes Status: Acute Code(s): R10.9 - UNSPECIFIED ABDOMINAL PAIN SNOMED Code(s): 96565697 (3) Ascites Current Visit: Yes Status: Acute Code(s): R18.8 - OTHER ASCITES SNOMED Code(s): 729512690 (4) H/O ETOH abuse Current Visit: Yes Status: Acute Code(s): Z87.898 - PERSONAL HISTORY OF OTHER SPECIFIED CONDITIONS SNOMED Code(s): 109197401 Plan: Supportive care Okay for sodium restricted diet Continue Lasix 40 mg daily Continue Aldactone 50 mg daily Paracentesis completed 1 time dose of lactulose ordered for constipation Alcohol abstinence Monitor for signs or symptoms of alcohol withdrawal Continue Protonix twice a day Thank you for allowing us to participate in the care of the patient we will continue to follow
--- NOTE | 2020-01-12 14:04 | XR ---
EXAMINATION TYPE: XR shoulder complete RT DATE OF EXAM: 01/12/2020 COMPARISON: NONE HISTORY: Pain TECHNIQUE: Shoulder examined in 2 views FINDINGS: The humeral head articulates with the glenoid. The acromio-clavicular junction is normal. No acute fractures or dislocations are evident. A follow up study can be performed 7-10 days from acute trauma for continued pain. IMPRESSION: 1. Normal 2 view right Shoulder
--- NOTE | 2020-01-12 14:05 | XR ---
EXAMINATION TYPE: XR scapula RT DATE OF EXAM: 01/12/2020 COMPARISON: None HISTORY: Right shoulder pain and scapular pain unable to raise arm TECHNIQUE: 2 view right scapula FINDINGS: Humeral head articulates with the glenoid. The scapula appears intact. No acute fractures a re identified. Acromioclavicular junction is normal. IMPRESSION: 1. Normal 2 view right scapula. 2. Follow-up exams can be performed 7-10 days from acute trauma for continued pain. 3. If there is clinical concern for rotator cuff tear, MRI is available for additional evaluation.
[2020-01-12] MEDS ORDERED: PANTOPRAZOLE 40 MG TABLET PO SCH (17:30)
--- NOTE | 2020-01-13 09:13 | US ---
EXAMINATION TYPE: US paracentesis abd w/image DATE OF EXAM: 01/10/2020 COMPARISON: NONE HISTORY: Ascites. PROCEDURE: Maximal barrier technique was utilized. The skin overlying a suitable pocket of fluid was localized with ultrasound and the overlying skin was prepped and draped. Ultrasound was utilized with sterile technique. Lidocaine was used for local anesthesia and a skin randy made with a scalpel. Catheter was advanced under direct ultrasound guidance into a suitable pocket of fluid and approximately 6.1 liter s of serous fluid were removed. Catheter was withdrawn and hemostasis achieved. There is no immedia te complication; the patient is discharged in stable condition. IMPRESSION: STATUS POST ULTRASOUND GUIDED PARACENTESIS FOR PALLIATION OF ASCITES. THIS PROCEDURE WA S PERFORMED BY THE UNDERSIGNED.
[2020-01-13 11:02] LABS: Folate, Serum 5.4 ng/mL
== END 2020-01-12 14:34 | disposition left against medical advice (07) | DRG 433 ==
LOC: EC 14:05 → 5NMEDONC 18:04
PROVIDERS: ADMIT Internal Medicine; ATTEND Internal Medicine
PROC: 0W9G3ZX Drainage of Peritoneal Cavity, Percutaneous Approach, Diagnostic (ICD-10-PCS; principal; 2020-01-10)
DX: K70.31 Alcoholic cirrhosis of liver with ascites (principal); N39.0 Urinary tract infection, site not specified; D69.6 Thrombocytopenia, unspecified; I50.9 Heart failure, unspecified; J44.9 Chronic obstructive pulmonary disease, unspecified; F10.20 Alcohol dependence, uncomplicated; E11.9 Type 2 diabetes mellitus without complications; Z20.828 Contact with and (suspected) exposure to other viral communicable diseases; K52.9 Noninfective gastroenteritis and colitis, unspecified; Y90.0 Blood alcohol level of less than 20 mg/100 ml; R31.9 Hematuria, unspecified; I69.311 Memory deficit following cerebral infarction; R40.2142 Coma scale, eyes open, spontaneous, at arrival to emergency department; R40.2362 Coma scale, best motor response, obeys commands, at arrival to emergency department; R40.2252 Coma scale, best verbal response, oriented, at arrival to emergency department; G89.29 Other chronic pain; M25.511 Pain in right shoulder; R91.1 Solitary pulmonary nodule; K59.00 Constipation, unspecified; R29.6 Repeated falls; K57.90 Diverticulosis of intestine, part unspecified, without perforation or abscess without bleeding; G47.9 Sleep disorder, unspecified; F17.210 Nicotine dependence, cigarettes, uncomplicated; Z71.6 Tobacco abuse counseling; Z71.41 Alcohol abuse counseling and surveillance of alcoholic; Z86.2 Personal history of diseases of the blood and blood-forming organs and certain disorders involving the immune mechanism; Z98.890 Other specified postprocedural states; Z83.3 Family history of diabetes mellitus; Z80.7 Family history of other malignant neoplasms of lymphoid, hematopoietic and related tissues; Z83.79 Family history of other diseases of the digestive system
CPT/HCPCS: 36415; 49083; 74177; 80053; 80320; 81001; 82042; 82140; 82150; 82607; 82746; 83605; 83690; 83735; 84145; 84157; 85025; 85610; 85730; 87070; 87077; 87086; 87186; 87205; 87635; 89050; 96361; 96365; 96372; 96375; 96376; 99285

== ENCOUNTER 2020-03-11 18:38 | Inpatient (IN) | payer MEDICARE, OTHER ==
[2020-03-11 19:50] LABS: Basophils % (A) 0 %; Eosinophils # (A) 0.1 k/uL (0-0.7); Eosinophils % (A) 1 %; HGB 13.8 gm/dL (11.4-16.0); Lymphocytes # (A) 0.8 k/uL (1.0-4.8); Lymphocytes % (A) 16 %; MCH 30.7 pg (25.0-35.0); MCHC 31.3 g/dL (31.0-37.0); Mean Platelet Volume 7.7; Monocytes # (A) 0.4 k/uL (0-1.0); Monocytes % (A) 9 %; Neutrophils # (A) 3.6 k/uL (1.3-7.7); Neutrophils % (A) 72 %; Platelet Count 146 k/uL (150-450); RBC 4.49 m/uL (3.80-5.40); RDW 14.7 % (11.5-15.5); WBC 5.1 k/uL (3.8-10.6)
[2020-03-11 19:59] LABS: ALT 11 U/L (4-34); AST 50 U/L (14-36); African American GFR (CKD) >90 (>60 ml/min/1.73 sqM); Albumin 3.4 g/dL (3.5-5.0); Alkaline Phosphatase 96 U/L (38-126); Amylase 68 U/L (30-110); Anion Gap 12 mmol/L; Blood Urea Nitrogen 12 mg/dL (7-17); Calcium 8.4 mg/dL (8.4-10.2); Carbon Dioxide 22 mmol/L (22-30); Chloride 99 mmol/L (98-107); Glucose 128 mg/dL (74-99); Non-African American GFR(CKD) >90 (>60 ml/min/1.73 sqM); Potassium 3.9 mmol/L (3.5-5.1); Sodium 133 mmol/L (137-145); Total Bilirubin 2.8 mg/dL (0.2-1.3); Total Protein 7.5 g/dL (6.3-8.2)
[2020-03-11] MEDS ORDERED: NALOXONE 0.4 MG/ML 1 ML VIAL IV PRN (20:17)
[2020-03-11] MEDS ORDERED: SODIUM CHLORIDE 0.9% 500 ML 500 ML IV ONE (20:17)
--- NOTE | 2020-03-11 20:23 | ED ---
Abdominal Pain HPI - General Source: patient Mode of arrival: wheelchair Limitations: no limitations <Inés Seals - Last Filed: 03/11/20 21:49> <Nydia Johnson - Last Filed: 03/12/20 23:49> - General Chief Complaint: Abdominal Pain Stated Complaint: UTI Time Seen by Provider: 03/11/20 18:51 - History of Present Illness Initial Comments: 54-year-old female with history of liver cirrhosis with ascites in the past last drainage and may presenting to the emergency department today for chief complaint abdominal distention and pain she states she is diffuse abdominal distention and pain she states feels like her abdomen is growing. Patient state she is also complaining of dysuria and concern she has a urinary tract infection. Patient denies any back pain, flank pain. Patient denies fevers, localized pain. Patient denies vomiting, but states she has some nausea Denies diarrhea. Denies chest pain or SOB. Patient does feel like her abdomen is pressing up on her chest. Remaining ROS (-). Upon arrival patient has obvious ascites/distention. (Inés Seals) - Related Data Previous Rx's Medication Instructions Recorded Furosemide [Lasix] 40 mg PO BID #60 tablet 03/12/20 Spironolactone [Aldactone] 50 mg PO DAILY #30 tab 03/12/20 Thiamine [Vitamin B-1] 50 mg PO DAILY #30 tablet 03/12/20 Allergies Allergy/AdvReac Type Severity Reaction Status Date / Time No Known Allergies Allergy Verified 03/11/20 20:31 Review of Systems ROS Other: All systems not noted in ROS Statement are negative. <Inés Seals - Last Filed: 03/11/20 21:49> ROS Other: All systems not noted in ROS Statement are negative. <Nydia Johnson - Last Filed: 03/12/20 23:49> ROS Statement: Those systems with pertinent positive or pertinent negative responses have been documented in the HPI. Past Medical History Past Medical History: Heart Failure, COPD, CVA/TIA, Diabetes Mellitus, Liver Disease, Memory Impairment Additional Past Medical History / Comment(s): 12/05/18 ADMISSION FOR Anemia AND HYPOGLYCEMIA. IDD. Constipation. Liver disease, alcholism. CVA 05/2018, NO RESIDUAL. History of Any Multi-Drug Resistant Organisms: None Reported Past Surgical History: Hernia Repair Additional Past Surgical History / Comment(s): ENDOSCOPIES, ventral hernia r epair Past Anesthesia/Blood Transfusion Reactions: No Reported Reaction Additional Past Anesthesia/Blood Transfusion Reaction / Comment(s): Never had general anethesia. BLOOD TRANSFUSION ON 12/08/18 , NO REACTION. Past Psychological History: No Psychological Hx Reported Smoking Status: Current every day smoker Past Alcohol Use History: Abuse Past Drug Use History: Marijuana - Past Family History Sister(s) Family Medical History: Diabetes Mellitus Additional Family Medical History / Comment(s): liver disease in 1 sister, kidney disease in 1 sister, lymphoma <Inés Seals - Last Filed: 03/11/20 21:49> General Exam Limitations: no limitations <Inés Seals - Last Filed: 03/11/20 21:49> - General Exam Comments Initial Comments: General: The patient is awake and alert, in no distress Eye: +3 mm pupils are equal, round and reactive to light, extra-ocular movements are intact. No nystagmus. There is normal conjunctiva bilaterally. No signs of icterus. Ears, nose, mouth and throat: There are moist mucous membranes and no oral lesions. Neck: The neck is supple, there is no tenderness or JVD. Cardiovascular: There is a regular rate and rhythm. No murmur, rub or gallop is appreciated. Respiratory: Lungs are clear to auscultation, respirations are non-labored, breath sounds are equal. No wheezes, stridor, rales, or rhonchi. Gastrointestinal: Soft, non-distended, non-tender abdomen without masses or organomegaly noted. There is no rebound or guarding present. Musculoskeletal: Normal ROM, no tenderness. Strength 5/5. Sensation intact. Radial pulses equal bilaterally 2+. Neurological: A&O x 3. CN II-XII intact grossly, There are no obvious motor or sensory deficits. Coordination appears grossly intact. Speech is normal. Skin: Skin is warm and dry and no rashes or lesions are noted. Psychiatric: Cooperative, appropriate mood & affect, normal judgment. (Inés Seals) Course Vital Signs 03/11/20 03/11/20 18:44 21:32 Temperature 98.9 F 98 F Pulse Rate 108 H 101 H Respiratory 18 18 Rate Blood Pressure 151/77 144/77 O2 Sat by Pulse 100 99 Oximetry Medical Decision Making - Lab Data Result diagrams: 03/11/20 19:07 03/11/20 19:07 <Inés Seals - Last Filed: 03/11/20 21:49> - Lab Data Result diagrams: 03/11/20 19:07 03/11/20 19:07 <Nydia Johnson - Last Filed: 03/12/20 23:49> - Medical Decision Making 54-year-old fmale with history of liver cirrhosis presents today for chief complaint abdominal distention pain patient has significant abdominal distention patient's S a stable no fevers no leukocytosis I do not feel patient has spo ntaneous bacterial peritonitis at this time. Patient has been complaining of dysuria however has a pale provide urine sample urine pending. Patient given IVF, pain medications. At this time i feel it is appropriate that patient be admitted for therapeutic paracentesis. Meaghan Johnson is agreebale to this care plan and admission at this time. (Inés Seals) I was available for consultation in the emergency department. The history and physical exam were done by the midlevel provider. I was consulted for this patients care. I reviewed the case with the midlevel provider and based on their presentation of the patient, I agree with the assessment, medical decision making and plan of care as documented. Discussed case with Dr. Rios who accepted admission. will consult IR for drainage. Chart was dictated using [employer] dictation software. Attempts were made to correct any dictation errors however some typographical errors may persist. Patient was seen during a national state of emergency due to the Covid-19 pandemic. (Nydia Johnson) - Lab Data Lab Results 03/11/20 03/11/20 03/11/20 Range/Units 19:07 19:07 19:07 WBC 5.1 (3.8-10.6) k/uL RBC 4.49 (3.80-5.40) m/uL Hgb 13.8 (11.4-16.0) gm/dL Hct 44.0 (34.0-46.0) % MCV 98.0 D (80.0-100.0) fL MCH 30.7 (25.0-35.0) pg MCHC 31.3 (31.0-37.0) g/dL RDW 14.7 (11.5-15.5) % Plt Count 146 L (150-450) k/uL Neutrophils % 72 % Lymphocytes % 16 % Monocytes % 9 % Eosinophils % 1 % Basophils % 0 % Neutrophils # 3.6 (1.3-7.7) k/uL Lymphocytes # 0.8 L (1.0-4.8) k/uL Monocytes # 0.4 (0-1.0) k/uL Eosinophils # 0.1 (0-0.7) k/uL Basophils # 0.0 (0-0.2) k/uL Sodium 133 L (137-145) mmol/L Potassium 3.9 (3.5-5.1) mmol/L Chloride 99 (98-107) mmol/L Carbon Dioxide 22 (22-30) mmol/L Anion Gap 12 mmol/L BUN 12 (7-17) mg/dL Creatinine 0.44 L (0.52-1.04) mg/dL Est GFR (CKD-EPI)AfAm >90 (>60 ml/min/1.73 sqM) Est GFR (CKD-EPI)NonAf >90 (>60 ml/min/1.73 sqM) Glucose 128 H (74-99) mg/dL Calcium 8.4 (8.4-10.2) mg/dL Total Bilirubin 2.8 H (0.2-1.3) mg/dL AST 50 H (14-36) U/L ALT 11 (4-34) U/L Alkaline Phosphatase 96 (38-126) U/L Total Protein 7.5 (6.3-8.2) g/dL Albumin 3.4 L (3.5-5.0) g/dL Amylase 68 (30-110) U/L Lipase 87 (23-300) U/L Urine Color Light Brown Urine Appearance Cloudy H (Clear) Urine pH 6.0 (5.0-8.0) Ur Specific Clare 1.031 (1.001-1.035) Urine Protein 1+ H (Negative) Urine Glucose (UA) Negative (Negative) Urine Ketones 1+ H (Negative) Urine Blood Negative (Negative) Urine Nitrite Negative (Negative) Urine Bilirubin 1+ H (Negative) Urine Urobilinogen >12.0 (<2.0) mg/dL Ur Leukocyte Esterase Trace H (Negative) Urine RBC 3 (0-5) /hpf Urine WBC 1 (0-5) /hpf Ur Squamous Epith Cells 34 H (0-4) /hpf Hyaline Casts 47 H (0-2) /lpf Urine Mucus Many H (None) /hpf Disposition Is patient prescribed a controlled substance at d/c from ED?: No Time of Disposition: 21:49 Decision to Admit Reason: Admit from EC Decision Date: 03/11/20 Decision Time: 20:00 <Inés Seals - Last Filed: 03/11/20 21:49> <Nydia Johnson - Last Filed: 03/12/20 23:49> Clinical Impression: Ascites, Abdominal distention, Dysuria Disposition: ADMITTED IP TO THIS HOSP Condition: Stable
[2020-03-11 21:55] LABS: Appearance,Urine Cloudy (Clear); Bilirubin,Urine 1+ (Negative); Blood,Urine Negative (Negative); Color,Urine Light Brown; Glucose,Urine (UA) Negative (Negative); Hyaline Casts,Urine 47 /lpf (0-2); Ketones,Urine 1+ (Negative); Leukocyte Esterase,Urine Trace (Negative); Mucus,Urine Many /hpf; Nitrite,Urine Negative (Negative); Protein,Urine 1+ (Negative); RBC,Urine 3 /hpf (0-5); Specific Gravity,Urine 1.031 (1.001-1.035); Squamous Epithelial Cell,Urine 34 /hpf (0-4); Urobilinogen,Urine >12.0 mg/dL (<2.0); WBC,Urine 1 /hpf (0-5)
[2020-03-11] MEDS: MORPHINE SULFATE 4 MG/ML SYRINGE IVP PRN (22:14)
[2020-03-11] MEDS: SODIUM CHLORIDE 0.9% 1,000 ML IV SCH (22:18)
[2020-03-12] MEDS: MORPHINE SULFATE 4 MG/ML SYRINGE IVP PRN ×3 (09:05→20:16)
[2020-03-12] MEDS: FUROSEMIDE 10 MG/ML 4 ML VIAL IV SCH ×2 (13:29→20:16)
--- NOTE | 2020-03-12 14:17 | P.HPIM ---
History of Present Illness 21-year-old female with history of fall colic cirrhosis came in with abdominal distention and severe abdominal pain although patient doesn't have any significant tenderness by suspicion is low but spontaneous bacterial retinitis. Patient's last drink was last Monday. Patient does smoke half pack of severe today patient denied any fever chills nausea vomiting diarrhea dysuria. Patient has significant abdominal distention will lead the therapeutic paracentesis as well as diagnostic paracentesis. Review of Systems REVIEW OF SYSTEMS: CONSTITUTIONAL: No fever, no malaise, no fatigue. HEENT: No recent visual problems or hearing problems. Denied any sore throat. CARDIOVASCULAR: No chest pain, orthopnea, PND, no palpitations, no syncope. PULMONARY: No shortness of breath, no cough, no hemoptysis. GASTROINTESTINAL: As mentioned in HPI NEUROLOGICAL: No headaches, no weakness, no numbness. HEMATOLOGICAL: Denies any bleeding or petechiae. GENITOURINARY: Denies any burning micturition, frequency, or urgency. MUSCULOSKELETAL/RHEUMATOLOGICAL: Denies any joint pain, swelling, or any muscle pain. ENDOCRINE: Denies any polyuria or polydipsia. The rest of the 14-point review of systems is negative. Past Medical History Past Medical History: Heart Failure, COPD, CVA/TIA, Diabetes Mellitus, Liver Disease, Memory Impairment Additional Past Medical History / Comment(s): 12/05/18 ADMISSION FOR Anemia AND HYPOGLYCEMIA. IDD. Constipation. Liver disease, alcholism. CVA 05/2018, NO RESIDUAL. History of Any Multi-Drug Resistant Organisms: None Reported Past Surgical History: Hernia Repair Additional Past Surgical History / Comment(s): ENDOSCOPIES, ventral hernia repair Past Anesthesia/Blood Transfusion Reactions: No Reported Reaction Additional Past Anesthesia/Blood Transfusion Reaction / Comment(s): Never had general anethesia. BLOOD TRANSFUSION ON 12/08/18 , NO REACTION. Past Psychological History: No Psychological Hx Reported Smoking Status: Current every day smoker Past Alcohol Use History: Abuse Additional Past Alcohol Use History / Comment(s): .5 PDD, FOR 20 YRS. LAST ALCHOLIC DRINK ON 03/07/2020. 1 pint of whiskey every day Past Drug Use History: Marijuana Additional Drug Use History / Comment(s): pt states smokes marijuana occa sionally - Past Family History Sister(s) Family Medical History: Diabetes Mellitus Additional Family Medical History / Comment(s): liver disease in 1 sister, kidney disease in 1 sister, lymphoma Medications and Allergies Home Medications Medication Instructions Recorded Confirmed Type No Known Home Medications 03/11/20 03/11/20 History Allergies Allergy/AdvReac Type Severity Reaction Status Date / Time No Known Allergies Allergy Verified 03/11/20 20:31 Physical Exam Vitals: Vital Signs Temp Pulse Pulse Resp BP BP Pulse Ox 03/12/20 09:03 90 16 03/12/20 06:59 98.3 F 90 16 130/60 97 03/12/20 02:24 98.1 F 94 18 132/85 98 03/11/20 22:00 98.3 F 96 20 124/68 99 03/11/20 21:32 98 F 101 H 18 144/77 99 03/11/20 18:44 98.9 F 108 H 18 151/77 100 Intake and Output 03/11/20 03/12/20 03/12/20 22:59 06:59 14:59 Intake Total 600 Balance 600 Intake: Intake, IV Titration 600 Amount Sodium Chloride 0.9% 1, 600 000 ml @ 75 mls/hr IV . [id number] [facility] Rx#:[id number] Other: Voiding Method Toilet Toilet # Voids 1 1 Weight 68.039 kg PHYSICAL EXAMINATION: GENERAL: The patient is alert and oriented x3, not in any acute distress. Well developed, well nourished. HEENT: Pupils are round and equally reacting to light. EOMI. does have mild scleral icterus. No conjunctival pallor. Normocephalic, atraumatic. No pharyngeal erythema. No thyromegaly. CARDIOVASCULAR: S1 and S2 present. No murmurs, rubs, or gallops. PULMONARY: Chest is clear to auscultation, no wheezing or crackles. ABDOMEN: Distended nontender, with shifting dullness bowel sounds are present MUSCULOSKELETAL: No joint swelling or deformity. EXTREMITIES: No cyanosis, clubbing, or pedal edema. NEUROLOGICAL: Gross neurological examination did not reveal any focal deficits. SKIN: No rashes. Results CBC & Chem 7: 03/11/20 19:07 03/11/20 19:07 Labs: Abnormal Lab Results - Last 24 Hours (Table) 03/11/20 03/11/20 03/11/20 Range/Units 19:07 19:07 19:07 Plt Count 146 L (150-450) k/uL Lymphocytes # 0.8 L (1.0-4.8) k/uL Sodium 133 L (137-145) mmol/L Creatinine 0.44 L (0.52-1.04) mg/dL Glucose 128 H (74-99) mg/dL Total Bilirubin 2.8 H (0.2-1.3) mg/dL AST 50 H (14-36) U/L Albumin 3.4 L (3.5-5.0) g/dL Urine Appearance Cloudy H (Clear) Urine Protein 1+ H (Negative) Urine Ketones 1+ H (Negative) Urine Bilirubin 1+ H (Negative) Ur Leukocyte Esterase Trace H (Negative) Ur Squamous Epith Cells 34 H (0-4) /hpf Hyaline Casts 47 H (0-2) /lpf Urine Mucus Many H (None) /hpf Thrombosis Risk Factor Assmnt - Choose All That Apply Any of the Below Risk Factors Present?: Yes Each Factor Represents 1 point: Age 41-60 years, Obesity (BMI >25) Thrombosis Risk Factor Assessment Total Risk Factor Score: 2 Thrombosis Risk Factor Assessment Level: Low Risk Assessment and Plan Plan: -Abdominal pain: Secondary to abdominal distention rather than the spot is back hepatitis patient undergo therapy and diagnostic paracentesis patient will be started on IV Lasix alcohol cessation counseling was provided -Nicotine abuse: Counseling was provided -Alcohol abuse -COPD without any acute exacerbation -Hypervolemic hyponatremia expected to improve with Lasix patient will be started on Lasix, IV fluids were discontinued
[2020-03-12 14:23] LABS: INR 1.3 (<1.2); Prothrombin Time 13.3 sec (9.0-12.0)
--- NOTE | 2020-03-12 16:34 | P.DS ---
Providers Date of admission: 03/11/20 20:59 Attending physician: Isra Pardo Primary care physician: Rolo Poole [facility] Course: Patient is having therapy paracentesis today and if clinically did well after the procedure patient will be discharged today Patient Condition at Discharge: Stable Plan - Discharge Summary New Discharge Prescriptions: New Spironolactone [Aldactone] 50 mg PO DAILY #30 tab Furosemide [Lasix] 40 mg PO BID #60 tablet Thiamine [Vitamin B-1] 50 mg PO DAILY #30 tablet Discharge Medication List Furosemide [Lasix] 40 mg PO BID #60 tablet 03/12/20 [Rx] Spironolactone [Aldactone] 50 mg PO DAILY #30 tab 03/12/20 [Rx] Thiamine [Vitamin B-1] 50 mg PO DAILY #30 tablet 03/12/20 [Rx] Follow up Appointment(s)/Referral(s): Rolo Poole MD [Primary Care Provider] - 3 Days Discharge Disposition: HOME SELF-CARE
[2020-03-12] MEDS: NICOTINE 14MG/24HR PATCH TRANSDERM SCH (16:46)
--- NOTE | 2020-03-12 18:12 | US ---
EXAMINATION TYPE: US paracentesis abd w/image DATE OF EXAM: 03/12/2020 CLINICAL HISTORY: Ascites The procedure was discussed with the patient. The risks, complications, benefits, and alternatives we re discussed and any questions were answered. Informed consent was obtained. The patient was placed s upine on the ultrasound table and prepped and draped in the usual sterile fashion. All elements of maximal barrier technique were utilized. Under ultrasound guidance, access into the right lower quadrant was obtained with a 5 [place] one-step centesis catheter. Approximately 7.3 liters of serous fluid was removed. Catheter was removed and sterile bandage was ap plied. The patient was stable throughout the procedure and remained stable upon discharge from [facility] ment of Radiology. IMPRESSION: Successful ultrasound-guided paracentesis, with removal of 7.3 liters of serous fluid.
[2020-03-12] MEDS: SODIUM CHLORIDE 0.9% 1,000 ML IV SCH (19:06)
[2020-03-12 20:16] LABS: Appearance,BF Clear; Color,BF Yellow; Nucleated Cells, Body Fluid 44 /uL; RBC, Body Fluid 25 /uL
[2020-03-12 20:17] LABS: Mononuclear WBC,Body Fluid 98 %; Polynuclear WBC,Body Fluid 2 %; Total Cells Counted,Body Fluid 100
[2020-03-12] MEDS ORDERED: FUROSEMIDE 10 MG/ML 4 ML VIAL IV SCH (21:00)
[2020-03-13 03:01] VITALS: RESP 17
[2020-03-13 04:11] VITALS: PULSE 76
[2020-03-13 04:13] LABS: Total Protein, Body Fluid 1590 mg/dL
[2020-03-13 04:38] LABS: Albumin, Fluid Source Paracentesis Fluid; Glucose, BF Source Paracentesis Fluid; Glucose, Body Fluid 122 mg/dL; LDH, Body Fluid Source Paracentesis Fluid
[2020-03-13 08:05] VITALS: BP 95/61; TEMP 98.1
[2020-03-13 08:07] LABS: HCT 39.8 % (34.0-46.0); HGB 13.2 gm/dL (11.4-16.0); MCH 32.3 pg (25.0-35.0); MCHC 33.2 g/dL (31.0-37.0); MCV 97.3 fL (80.0-100.0); Mean Platelet Volume 7.5; Platelet Count 142 k/uL (150-450); RBC 4.09 m/uL (3.80-5.40); RDW 14.7 % (11.5-15.5); WBC 4.6 k/uL (3.8-10.6)
[2020-03-13 08:19] LABS: Potassium 3.2 mmol/L (3.5-5.1)
[2020-03-13 08:21] LABS: ALT 10 U/L (4-34); AST 39 U/L (14-36); African American GFR (CKD) >90 (>60 ml/min/1.73 sqM); Albumin 2.7 g/dL (3.5-5.0); Alkaline Phosphatase 94 U/L (38-126); Anion Gap 6 mmol/L; Blood Urea Nitrogen 8 mg/dL (7-17); Calcium 7.5 mg/dL (8.4-10.2); Carbon Dioxide 29 mmol/L (22-30); Chloride 100 mmol/L (98-107); Glucose 119 mg/dL (74-99); Non-African American GFR(CKD) >90 (>60 ml/min/1.73 sqM); Sodium 135 mmol/L (137-145); Total Bilirubin 1.4 mg/dL (0.2-1.3); Total Protein 6.3 g/dL (6.3-8.2)
[2020-03-13] MEDS: NICOTINE 14MG/24HR PATCH TRANSDERM SCH (09:47)
[2020-03-13] MEDS: FUROSEMIDE 10 MG/ML 4 ML VIAL IV SCH (09:47)
[2020-03-13] MEDS ORDERED: POTASSIUM CHLORIDE ER 20 MEQ TAB.ER PO STA (11:12)
--- NOTE | 2020-03-15 12:10 | CDI ---
Documentation Clarification Form Date: 03/15/20 From: Kylah Owen Phone: If you have a question about this query, please contact Annabella Garcias, Arboriculture Teacher at [phone] between 8am and 5pm. Admit Date: 03/11/20 Discharge Date: 03/13/20 Patient Name: LAQUITA PRINGLE Visit Number: [id number] ATTENTION: The Clinical Documentation Specialists (CDI) and [facility] Coding Staff appreciate your assistance in clarifying documentation. Please respond to the clarification below the line at the bottom and electronically sign. The CDI & [facility] Coding staff will review the response and follow-up if needed. Please note: Queries are made part of the Legal Health Record. If you have any questions, please contact the author of this message via ITS. Dear Dr. Zacarias Torres, Liver cirrhosis is documented in the ED note and H&P. Patient history/risk factors & clinical indicators: 54-year-old female with history of liver cirrhosis with ascites in the past last drainage and may presenting to the emergency department today for chief complaint abdominal distention and pain she states she is diffuse abdominal distention and pain she states feels like her abdomen is growing. Past medical history of alcoholism. Radiology: Successful ultrasound-guided paracentesis, with removal of 7.3 liters of serous fluid. Labs: AST-50/39, ALT-11/10, Alkaline phosphatase-96/94 Vital Signs: 98.9 F 108 H 18 R 151/77 100 O2 Treatment: Paracentesis Medication: Lasix IV 40 mg Q 12HR In your professional opinion, can the etiology of the liver cirrhosis be further specified, if known? Alcoholic, with ascites Other, please specify Unable to determine Alcoholic, with ascites MTDD
== END 2020-03-13 13:03 | disposition home or self-care (01) | DRG 433 ==
LOC: EC 18:38 → 4SSUR 20:59
PROVIDERS: ADMIT Hospitalist; ATTEND Hospitalist
PROC: 0W9G3ZX Drainage of Peritoneal Cavity, Percutaneous Approach, Diagnostic (ICD-10-PCS; principal; 2020-03-11)
DX: K70.31 Alcoholic cirrhosis of liver with ascites (principal); E87.1 Hypo-osmolality and hyponatremia; I50.9 Heart failure, unspecified; E11.9 Type 2 diabetes mellitus without complications; J44.9 Chronic obstructive pulmonary disease, unspecified; F10.10 Alcohol abuse, uncomplicated; R30.0 Dysuria; E87.70 Fluid overload, unspecified; Z11.59 Encounter for screening for other viral diseases; K59.00 Constipation, unspecified; F17.210 Nicotine dependence, cigarettes, uncomplicated; Z71.6 Tobacco abuse counseling; Z79.899 Other long term (current) drug therapy; Z86.73 Personal history of transient ischemic attack (TIA), and cerebral infarction without residual deficits; Z87.19 Personal history of other diseases of the digestive system; Z86.2 Personal history of diseases of the blood and blood-forming organs and certain disorders involving the immune mechanism; Z98.890 Other specified postprocedural states; Z83.3 Family history of diabetes mellitus; Z80.7 Family history of other malignant neoplasms of lymphoid, hematopoietic and related tissues; Z83.79 Family history of other diseases of the digestive system
CPT/HCPCS: 36415; 49083; 80053; 81001; 82042; 82150; 82945; 83615; 83690; 84157; 85025; 85027; 85610; 87070; 87075; 87205; 88108; 88305; 89050; 99284